=== PATIENT | female | born 1935 | race Caucasian/White ===

== ENCOUNTER 2016-08-20 16:34 | Inpatient (IN) | payer MEDICARE, BC ==
[~2016-08-20] VITALS: Ht 162.6 cm; Wt 91.1 kg
[~2016-08-20 16:34] MED LIST: ADVIL200 MG PO; ALAVERT10 MG/TAB PO; ALEVE220 MG PO; FUROSEMIDE20 MG PO; KLOR-CON M2020 MEQ PO; LEVAQUIN500 MG PO; NORVASC2.5 MG PO; Q-DRYL25 MG PO; SINGULAIR10 MG PO; SYMBICORT 16010.2 GM INH; VITAMIN D31000 UNIT PO; ZESTRIL20 MG PO; ZOLOFT50 MG PO
[2016-08-20 17:08] LABS: BASOPHILS 0.3 % (0.0-2.0); EOSINOPHILS 0.5 % (0-7); HEMOGLOBIN 12.8 g/dL (12-16); IMMATURE GRANULOCYTES 0.3 % (0-5); LYMPHOCYTES 12.4 % (15-50); MCH 31.2 pg (26.0-34.0); MCHC 32.8 g/dL (31.0-37.0); MCV 95.1 fL (80.0-100.0); MEAN PLATELET VOLUME 11.2 fL (7.4-10.4); MONOCYTES 12.4 % (2-11); NEUTROPHILS 74.1 % (40-80); RDW 12.9 % (11.5-14.5); WBC 6.5 10x3/uL (4.8-10.8)
[2016-08-20 17:10] LABS: PLATELET COUNT 124 10x3/uL (130-400)
[2016-08-20 17:36] LABS: ALBUMIN 3.8 g/dL (3.4-5.0); ANION GAP 12.3 mmol/L (8-16); BILIRUBIN - TOTAL 0.66 mg/dL (0.2-1.3); CALCIUM 8.3 mg/dL (8.5-10.1); CARBON DIOXIDE 29.4 mmol/L (21.0-32.0); CREATININE - SERUM 0.9 mg/dL (0.6-1.3); MAGNESIUM - SERUM 1.9 mg/dL (1.8-2.4); POTASSIUM - SERUM 3.7 mmol/L (3.5-5.1)
[2016-08-20 17:55] LABS: CREATINE KINASE 70 UL (21-215); PRO BNP 751 pg/mL (0-450)
--- NOTE | 2016-08-20 19:37 | NUR ---
Patient Name: DREW CHAIREZ Admission Status: ER Accout number: [id number] Admission Date: 08-20-2016 : 1935 Admission Diagnosis: CHF, HTN Attending: STEVEN Current LOS: 1 Anticipated DC Date: 08-23-2016 Planned Disposition: Assisted Living Primary Insurance: MEDICARE A & B Discharge Planning Comments: Cm met with patient to complete initial discharge planning assessment. Patient gave consent to complete assessment. Patient reports she resides at [facility]. She wears O2 at hs but stated she should probably wear it all the time. She was not able to answer all questions and could not remember some things. She was short of breath with conversation. Patient plans to return to her assisted living facility at discharge. CM will continue to follow and assist with dc plan/needs. Power Electronics Engineer: Julissa Reilly RN, [facility] [phone] Is the patient Alert and Oriented? Yes * How many steps to enter\exit or inside your home? none * PCP Dr. Kinsey * Pharmacy She is not sure * Preadmission Environment Assisted Living * Facility Name [facility] now [facility] * ADLs Partial Dependent * Partial ADLs (Assistance needed) Medication Management * Equipment Oxygen Rolling Walker Wheelchair * Other Equipment [facility] * List name and contact numbers for known caregivers / representatives who currently or will assist patient after discharge: Enzo DennisNeil - [facility] - [phone] * Community resources currently utilized None * Additional services required to return to the preadmission environment? No * Can the patient safely return to the preadmission environment? Yes * Has this patient been hospitalized within the prior 30 days at any hospital? No
[2016-08-20 19:41] VITALS: BMI 34.4
--- NOTE | 2016-08-20 19:49 | NUR ---
PT ADMITED FROM ER TO DR. AMBROSIO, PT IS FROM [facility], CAME IN WITH SOB, WEAKNESS, CHF, GIVE IV LASIX 80MG, LEVAQUIN 750MG, HYDRALAZINE, AND NITRO IN ER, 02-2L. IV-L. WRIST. PLACED FALL RISK BRACLET,BED ALARM ON, CALL LIGHT IN REACH, WILL CONTINUE TO MONITOR
[2016-08-20] MEDS ORDERED: NEURONTIN 300300 MG PO (20:09)
[2016-08-20 20:26] VITALS: BP 144/74
[2016-08-21 00:35] VITALS: BP 150/60
--- NOTE | 2016-08-21 02:15 | NUR ---
SLEEPING, CALL LIGHT IN REACH, BED IS LOW, SRX2
[2016-08-21 04:17] VITALS: BP 144/66
--- NOTE | 2016-08-21 07:00 | NUR ---
RECEIVED REPORT. ASSUMED CARE OF PATIENT. PATIENT RESTING IN BED WITH EYES OPEN. RESP EVEN AND UNLABORED. PATIENT STATES SHE IS WEAK. ALERT/ORIENTED. CALL LIGHT WITHIN REACH. BED ALARM PATENT. DENIES NEEDS AT THIS TIME. NO DISTRESS.
[2016-08-21 07:41] VITALS: BP 138/68
[2016-08-21 11:39] VITALS: BP 190/83
--- NOTE | 2016-08-21 12:28 | NUR ---
16 FR. ACKERMAN CATHETER PLACED VIA STERILE TECHNIQUE. 100 CC STRAW COLORED URINE OBTAINED UPON INSERTION TO DRAINAGE BAG VIA GRAVITY. SECURED WITH STAT LOCK. PATIENT TOLERATED ACKERMAN INSERTION WELL. ACKERMAN CATH INSERTED DUE TO CHF, RECEIVING DIURETIC THERAPY, UNABLE TO MEASURE ACCURATE AMOUNT OF URINE PRODUCED, AND WERE UNABLE TO OBTAIN CLEAN CATCH SPECIMEN FROM PATIENT SHE IS HAVING INCONTINENT EPISODES EVERY TIME SHE COUGHS, SNEEZES, OR MOVES. SPECIMEN TAKEN TO LAB AT THIS TIME. NO DISTRESS.
[2016-08-21 12:42] LABS: APPEARANCE CLEAR (CLEAR); BILIRUBIN NEGATIVE (NEGATIVE); COLOR YELLOW (YELLOW); GLUCOSE NEGATIVE (NEGATIVE); KETONE NEGATIVE (NEGATIVE); LEUKOCYTE ESTERASE NEGATIVE (NEGATIVE); NITRITE NEGATIVE (NEGATIVE); PROTEIN TRACE mg/dL (NEGATIVE); UROBILINOGEN NORMAL (NORMAL)
[2016-08-21 15:21] VITALS: BP 122/72
--- NOTE | 2016-08-21 15:30 | NUR ---
PATIENTS SON AT BEDSIDE. CALL LIGHT WITHIN REACH. PATIENT DENIES NEEDS AT THIS TIME. NO DISTRESS.
--- NOTE | 2016-08-21 17:58 | NUR ---
MEDICATED FOR NAUSEA AT THIS TIME.
[2016-08-21 20:30] VITALS: BP 178/82
[2016-08-22] VITALS: BP 133/68
[2016-08-22 04:45] VITALS: BP 131/61
[2016-08-22 05:26] LABS: BASOPHILS 0.2 % (0.0-2.0); EOSINOPHILS 0.7 % (0-7); HEMOGLOBIN 12.5 g/dL (12-16); IMMATURE GRANULOCYTES 0.2 % (0-5); LYMPHOCYTES 15.8 % (15-50); MCH 30.4 pg (26.0-34.0); MCHC 32.9 g/dL (31.0-37.0); MEAN PLATELET VOLUME 12.3 fL (7.4-10.4); MONOCYTES 16.2 % (2-11); NEUTROPHILS 66.9 % (40-80); PLATELET COUNT 128 10x3/uL (130-400); RBC 4.11 10x6/uL (4.00-5.40)
[2016-08-22 05:27] LABS: MCV 92.5 fL (80.0-100.0); WBC 4.5 10x3/uL (4.8-10.8)
[2016-08-22 06:04] LABS: ALBUMIN 3.2 g/dL (3.4-5.0); ANION GAP 11.3 mmol/L (8-16); BILIRUBIN - TOTAL 0.57 mg/dL (0.2-1.3); CALCIUM 8.6 mg/dL (8.5-10.1); CARBON DIOXIDE 32.1 mmol/L (21.0-32.0); POTASSIUM - SERUM 3.4 mmol/L (3.5-5.1); PROTEIN - SERUM 7.2 g/dL (6.4-8.2)
[2016-08-22 06:06] LABS: CREATININE - SERUM 1.2 mg/dL (0.6-1.3)
--- NOTE | 2016-08-22 07:39 | NUR ---
AM ROUNDING- PT LAYING IN BED ON BACK WITH EYES OPEN RESTING, CURRENTLY RECEIVING A BREATHING TX. ON MONITOR SHOWING SR, HR 85. PT IS ALERT AND ORIENTED. VERY SOFT SPOKEN. ACKERMAN CATHETER WITH YELLOW URINE SEEN. IV SEEN TO LEFT FOREARM WITH NS RUNNING AT KVO (15). ON 02 AT 2L VIA NC. PTS OWN WALKER AT BEDSIDE. ON LOVENOX INJECTION FOR DVT PREVENTION. NO NEED AT CURRENT TIME. WILL CONTINUE TO MONITOR AND CONTINUE WITH PLAN OF CARE.
[2016-08-22 08:00] VITALS: BP 136/70
--- NOTE | 2016-08-22 09:52 | NUR ---
WENT TO PATIENT'S ROOM AND SHE STATED THAT SHE COULD NOT GET UP INTO THE WHEELCHAIR TO COME TO RADIOLOGY FOR HER 2V CXR. SPOKE WITH HER RN MEGA AND MEGA STATED THAT SHE COULDN'T MAKE THE PATIENT COME TO THE DEPARTMENT. HUGO AYOUB STATED TO CHANGE THE ORDER TO A PORTABLE CXR.
[2016-08-22 12:00] VITALS: BP 139/61
--- NOTE | 2016-08-22 12:18 | NUR ---
SIMIN NICOLAS NOTIFIED ME OF PTS TEMP BEING 100.1 ORALLY. SLOAN NICHOLE NP ON UNIT. NOTIFIED HER OF THIS. WILL GIVE PT TYLENOL ORDERED AND CONTINUE TO MONITOR.
[2016-08-22 12:52] VITALS: Ht 162.6 cm; Wt 91.1 kg
--- NOTE | 2016-08-22 14:16 | NUR ---
Rehab Prescreening Consult recieved and the chart has been reviewed. She is a good rehab candidate. Today she is febrile 100 and orders are pending. She will be accepted to rehab when physician feels she is medically stable for discharge to rehab. Chasity Winston RN Clinical Liaison, Rehab
--- NOTE | 2016-08-22 15:18 | NUR ---
SON ON UNIT ABOUT TO LEAVE. SON ASKED ME IF THERE WAS ANYTING WE COULD GIVE PT TO HELP HER SLEEP AT NIGHT SINCE SHE HAS NOT BEEN ABLE TO SLEEP. INFORMED SON THAT I WOULD ASK SLOAN NICHOLE NP.
[2016-08-22 16:00] VITALS: BP 112/62
--- NOTE | 2016-08-22 19:11 | NUR ---
PM ROUNDING- PT LAYING IN BED ON BACK WITH EYES OPEN RESTING. ACKERMAN CATHETER WITH YELLOW URINE SEEN. ON 02 AT 2L VIA NC. IV SEEN TO LEFT FOREARM WITH NS RUNNING AT KVO (10). ON MONITOR SHOWING SR, HR 93. ON LOVENOX INJECTION FOR DVT PREVENTION. PTS OWN WALKER IS AT BEDSIDE. NO NEED AT CURRENT TIME. WILL PASS THIS ALONG IN REPORT AT 1000 TO FINISHING FRAME RUNNER NURSE AND CONTINUE TO MONITOR.
[2016-08-22 20:00] VITALS: BP 117/52
--- NOTE | 2016-08-22 23:00 | NUR ---
RADIOLOGY HERE FOR PATIENT TO GO FOR CTA VIA WHEELCHAIR.
[2016-08-23] VITALS: BP 124/55
--- NOTE | 2016-08-23 00:10 | NUR ---
REPORT RECEIVED AND CARE ASSUMED. NO VOICED NEEDS. SEE SHIFT ASSESSMENT FLOW SHEET FOR DETAILS. WILL MONITOR AND CONTINUE PLAN OF CARE.
[2016-08-23 04:00] VITALS: BP 111/75
[2016-08-23 08:11] VITALS: BP 142/69
--- NOTE | 2016-08-23 08:40 | NUR ---
RECEIVED REPORT FROM NIGHT NURSE. EATING BREAKFAST. PATIENT ORIENTED TO TIME,PLACE. WILL CONTINUE TO MONITOR.
--- NOTE | 2016-08-23 10:02 | NUR ---
Patient Name: DREW CHAIREZ Encounter No: [id number] : 1935 Primary Insurance: MEDICARE A & B Anticipated DC Date: 08-23-2016 Planned Disposition: Inpatient Rehab External Planned Provider: [facility] INPATIENT REHAB DCP follow-up note: CM RECEIVED ORDER FOR INPATIENT REHAB PRESCREENING, SPOKE TO PT AND SON, YOVANY, IN ROOM REGARDING DISCHARGE PLANNING AND NEEDS. LEONORA REPORTED THAT HE HAS SPOKEN TO THE DOCTOR ABOUT HAVING PT PARTICIPATE IN THE INPATIENT REHAB AT [place] BEFORE RETURNING TO [facility]. LEONORA FEELS THAT PT WILL BENEFIT GREATLY AND CAN PARTICIPATE IN THE THERAPY REQUIRED WITH PLAN TO RETURN TO [facility]. LEONORA PROVIDED HIS CELL PHONE NUMBER, , FOR CONTACT IF NEEDED. PT REPORTS KEK TO BE HER POWER OF PER DIEM PHYSICAL THERAPIST AND SHE IS ALSO IN AGREEMENT FOR REHAB BEFORE GOING HOME TO [facility]. IMPORTANT MESSAGE FROM MEDICARE PROVIDED AND EXPLAINED. CM WAITING INPATIENT REHAB PRESCREENING RESULT. Edu Minor, CASE MANAGEMENT
--- NOTE | 2016-08-23 10:55 | NUR ---
PT CURRENTLY SITTING UP IN CHAIR WITH EYES OPEN RESTING. ON MONITOR SHOWING SR, HR 89. IV SEEN TO LEFT FOREARM WITH NS RUNNING AT KVO. ON 02 AT 2L VIA NC. ACKERMAN CATHETER WITH YELLOW URINE SEEN. PTS OWN WALKER AT BEDSIDE. PER REPORT PT GOT UP AND WALKED WITH PHYSICAL THERAPY THIS AM. ON LOVENOX INJECTION FOR DVT PREVENTION. ALERT AND ORIENTED. PER REPORT PT WAS CONFUSED AT TIMES ON HEAD STILL OPERATOR. NO NEED AT CURRENT TIME. ROSALINDA JARAMILLO, TARP REPAIRER IS DOING DAILY SHIFT ASSESSMENT. WILL DO CARE PLAN AND TEACHING. WILL CONTINUE TO MONITOR AND CONTINUE WITH PLAN OF CARE.
[2016-08-23 11:58] VITALS: BP 117/54
--- NOTE | 2016-08-23 15:48 | NUR ---
UPON GOING TO HOOK PTS IV BACK UP TO IV FLUIDS, NOTICED THAT PTS IV WOULD NOT FLUSH. ATTEMPTED TO SAVE IV BUT IV WOULD NOT FLUSH. IV REMOVED WITH CATH TIP INTACT. TOLERATED WELL. 22G IV INSERTED INTO PTS LEFT FOREARM X1 STICK. TOLERATED WELL. HOOKED PT BACK UP TO IV FLUIDS AT O. WILL CONTINUE TO MONITOR.
[2016-08-23 15:55] VITALS: BP 125/68
[2016-08-23 16:13] LABS: BASOPHILS 0.2 % (0.0-2.0); EOSINOPHILS 0 % (0-7); HEMATOCRIT 37.1 % (36.0-48.0); HEMOGLOBIN 12.4 g/dL (12-16); IMMATURE GRANULOCYTES 0.2 % (0-5); LYMPHOCYTES 12.7 % (15-50); MCH 30.6 pg (26.0-34.0); MCHC 33.4 g/dL (31.0-37.0); MCV 91.6 fL (80.0-100.0); MONOCYTES 5.9 % (2-11); PLATELET COUNT 125 10x3/uL (130-400); RBC 4.05 10x6/uL (4.00-5.40); WBC 4.6 10x3/uL (4.8-10.8)
[2016-08-23 17:52] LABS: CALCIUM 8.7 mg/dL (8.5-10.1)
[2016-08-23 17:53] LABS: ANION GAP 18.4 mmol/L (8-16); CREATININE - SERUM 1.7 mg/dL (0.6-1.3); POTASSIUM - SERUM 4.4 mmol/L (3.5-5.1)
--- NOTE | 2016-08-23 17:55 | NUR ---
PT LAYING IN BED ON BACK WITH EYES OPEN RESTING VISITING WITH GUEST. DENIES ANY NEED AT CURRENT TIME. EMPITED FOLY CATHETER WITH 500CC OF YELLOW URINE WHILE IN ROOM. WILL CONTINUE TO MONITOR.
--- NOTE | 2016-08-23 19:30 | NUR ---
IN BED, WITH HOB UP SR UP X2, C/L IN REACH, RESP UNLAB WITH O2 @ 2L N/C IN PLACE, TELEMETRY IN PLACE SHOWING HR SR PER MONITOR. LEFT FA IV WITH NO R/S NOTED AT SITE. INTACT AND PATENT WITH NS INFUSING W/O DIFF VIA PUMP AT KVO. KASEY WELL. ACKERMAN CATH INTACT AND PATENT WITH YELLOW URINE NOTED IN BAG. CONTINUE TO MONITOR,
[2016-08-23 20:29] VITALS: BP 187/88
[2016-08-24] VITALS: BP 165/61
[2016-08-24 04:00] VITALS: BP 166/88
--- NOTE | 2016-08-24 04:01 | NUR ---
AROUSES EASILY, VOICES NO C/O PAIN OR DISCOMFORT AT THIS TIME. CONTINUE TO MONITOR, C/L IN REACH.
[2016-08-24 04:19] LABS: BASOPHILS 0.2 % (0.0-2.0); EOSINOPHILS 0 % (0-7); HEMATOCRIT 36.2 % (36.0-48.0); HEMOGLOBIN 11.9 g/dL (12-16); IMMATURE GRANULOCYTES 0.6 % (0-5); LYMPHOCYTES 11.8 % (15-50); MCH 30.4 pg (26.0-34.0); MCHC 32.9 g/dL (31.0-37.0); MCV 92.3 fL (80.0-100.0); MEAN PLATELET VOLUME 11.9 fL (7.4-10.4); MONOCYTES 6.6 % (2-11); NEUTROPHILS 80.8 % (40-80); RBC 3.92 10x6/uL (4.00-5.40)
[2016-08-24 04:22] LABS: PLATELET COUNT 161 10x3/uL (130-400); WBC 6.5 10x3/uL (4.8-10.8)
[2016-08-24 04:37] LABS: ANION GAP 11.7 mmol/L (8-16); CALCIUM 9.1 mg/dL (8.5-10.1); CARBON DIOXIDE 29.2 mmol/L (21.0-32.0); CREATININE - SERUM 1.8 mg/dL (0.6-1.3); POTASSIUM - SERUM 4.9 mmol/L (3.5-5.1)
[2016-08-24 07:47] VITALS: BP 144/55
--- NOTE | 2016-08-24 09:56 | NUR ---
0715- AM ROUNDING. PT LAYING IN BED ON BACK WITH EYES OPEN RESTING. ON MONITOR SHOWING ST, HR 102. IV SEEN TO LEFT FOREARM WITH NS RUNNING AT KVO (15CC). ON O2 AT 2L VIA NC. ACKERMAN CATHETER WITH YELLOW URINE SEEN. ON LOVENOX INJECTION FOR DVT PREVENTION. NO NEED AT CURRENT TIME. WILL CONTINUE TO MONITOR AND CONTINUE WITH PLAN OF CARE.
[2016-08-24 11:45] VITALS: BP 153/68
--- NOTE | 2016-08-24 11:49 | NUR ---
CALLED PTS SON TO INFORM HIM OF PTS PROCEDURE. INFORMED HIM THAT PT WILL HAVE A LAPAROSCOPIC CHOLECYSTECTOMY ORDERED BY DR. ZAZUETA. PTS SON STATED OK.
--- NOTE | 2016-08-24 12:00 | NUR ---
CONSENTS FOR PROCEDURE SIGNED BY PT AND PLACED IN CHART. INSTRUCTED PT TO NOT EAT OR DRINK ANYTHING PRIOR TO PROCEDURE ORDERED. PT STATES "OK I WILL NOT EAT OR DRINK ANYTHING". NPO SIGN PLACED ON PTS DOOR. WILL CONTINUE TO MONITOR.
--- NOTE | 2016-08-24 15:43 | NUR ---
PHYSICAL THERAPY CALLED ME INTO PTS ROOM TO REPORT PT C/O PAIN WHERE ACKERMAN CATHETER IS. PT STATED SHE HAD URINE RUNNING DOWN HER LEG. PULLED 10CC OF FLUID OUT OF BALLOON IN ACKERMAN CATHETER AND PLACED IN BACK INTO BALLOON. PT STATED SHE IS NO IN ANY DISCOMFORT NOW. I INSTRUCTED PT TO LET ME KNOW IF SHE HAS ANY MORE TROUBLE OR DISCOMOFRT FROM ACKERMAN AREA. SHE STATED OK.
[2016-08-24 15:47] VITALS: BP 146/62
--- NOTE | 2016-08-24 17:54 | NUR ---
PT CURRENTLY SITTING UP FINISHING DINNER TRAY. ACKERMAN CATHETER EMPTIED. PT REQUESTED TO BE ASSISTED BACK TO BED. SIMIN CRUZ AND Dulce HELPED PT BACK TO BED. NO OTHER NEED AT CURRENT TIME. WILL CONTINUE TO MONITOR.
--- NOTE | 2016-08-24 19:57 | NUR ---
INTRODUCED MYSELF TO PT PRIMARY RN FOR [facility] SHIFT. PT IS SITTING UP IN BED RESTING QUIETLY. ALERT & ORIENTED. SHIFT ASSESSMENT COMPLETED AND GAS APPLIANCE SERVICER MAKING ROUNDS FOR VITALS. PT DENIES ANY CURRENT NEEDS AT THIS TIME WILL PULL NIGHTLY SCHEDULED MEDICATIONS AND CONTINUE WITH PLAN OF CARE. CL IN REACH, BED IN LOWEST, SIDE RAILS X2.
[2016-08-25] VITALS: BP 136/41
[2016-08-25 04:00] VITALS: BP 141/56
[2016-08-25 06:22] LABS: BASOPHILS 0.1 % (0.0-2.0); EOSINOPHILS 0.4 % (0-7); HEMATOCRIT 35.6 % (36.0-48.0); HEMOGLOBIN 11.7 g/dL (12-16); IMMATURE GRANULOCYTES 0.7 % (0-5); LYMPHOCYTES 11.2 % (15-50); MCH 30.5 pg (26.0-34.0); MCHC 32.9 g/dL (31.0-37.0); MEAN PLATELET VOLUME 11.7 fL (7.4-10.4); MONOCYTES 12.7 % (2-11); NEUTROPHILS 74.9 % (40-80); PLATELET COUNT 172 10x3/uL (130-400); RBC 3.83 10x6/uL (4.00-5.40); RDW 13.4 % (11.5-14.5)
[2016-08-25 06:28] LABS: WBC 11.8 10x3/uL (4.8-10.8)
--- NOTE | 2016-08-25 06:30 | CN ---
PATIENT NAME:DREW CHAIREZ MEDICAL RECORD: [id number] : [birth year] LOCATION:D. D.2110 ADMIT DATE: 08/20/16 ACCOUNT: [id number] CONSULTING PHYSICIAN: RK ZAZUETA MD REFERRING PHYSICIAN: MARQUES AMBROSIO MD DATE OF CONSULTATION: 08/24/2016 SURGICAL CONSULTATION DATE OF CONSULTATION: 08/24/2016 REASON FOR CONSULTATION: Gallstones. HISTORY OF PRESENT ILLNESS: This is an 81-year-old female who was admitted to the hospital 4 days ago. She presented to the ER with acute onset of nausea, vomiting, diarrhea, as well as shortness of breath. The patient complained at that time that she had low-grade fever. She was admitted for CHF exacerbation. She says she has been having intermittent abdominal pain and vomiting for several months. She says she wakes in the middle of the night with vomiting, but denies any real history of abdominal pain associated with vomiting that she can remember. She denies any episodes of hematemesis. Currently, she is having no abdominal pain. She had an ultrasound performed yesterday, which shows gallstones. PAST MEDICAL HISTORY: COPD, obstructive sleep apnea, reflux, hypertension, asthma, congestive heart failure. PAST SURGICAL HISTORY: Appendectomy, hysterectomy, right partial mastectomy. ALLERGIES: No known drug allergies. SOCIAL HISTORY: She lives at home alone. She is an ex-smoker. She is a previous drinker. FAMILY HISTORY: Denies any family history of heart disease or diabetes. HOME MEDICATIONS: Include Neurontin, Klor-Con, Singulair, Symbicort, B6, cholecalciferol, sertraline, lisinopril, ibuprofen, loratadine, amlodipine and naproxen. REVIEW OF SYSTEMS: A 12-point review of systems was obtained, pertinent positive and negative as per the HPI. PHYSICAL EXAMINATION: VITAL SIGNS: Temperature 98.8, pulse 101, respirations 18, blood pressure 126/62 and saturating 93% on nasal cannula. GENERAL: Morbidly obese female in mild distress. PSYCHIATRIC: She is alert and oriented times 3. EYES: Extraocular muscles are intact. EAR, NOSE, AND THROAT: Normal dentition. CARDIOVASCULAR: Normal sinus rhythm. PULMONARY: She had decreased breath sounds bilaterally with bibasilar rales. ABDOMEN: Soft, nondistended, nontender. No palpable hernia defects. SKIN: Warm, dry with normal turgor. EXTREMITIES: He has got peripheral edema. CONSULT REPORT [id number] DREW CHAIREZ LABORATORY DATA: Today, white count 6500, hemoglobin 12, hematocrit 36, platelet count 160. Sodium 135, potassium 4.9, chloride 99, CO2 of 29, BUN 49, creatinine 1.8. LFTs from 2 days ago are within normal limits. DIAGNOSTIC DATA: Ultrasound images personally reviewed, the patient does have multiple shadowing defect. There was no pericholecystic fluid or ductal dilatation. Chest x-ray images reviewed that showed pneumonia and CHF as well as pulmonary edema. IMPRESSION: This is an 81-year-old female with congestive heart failure exacerbation, chronic obstructive pulmonary disease exacerbation, acute renal failure and symptomatic cholelithiasis. PLAN: 1. Continue IV fluids per primary care team. 2. Continue IV antibiotics. Case was discussed with Dr. Hernandez, primary care doctor. I do not believe this patient is a surgical candidate at this time. If patient develops persistent right upper quadrant pain or persistent vomiting, we will recommend interventional radiology for cholecystostomy tube. At this time, we will continue the patient on clear liquid diet as tolerated. TRANSINT:[id number] Voice Confirmation ID: [id number] DOCUMENT ID: [id number] RK ZAZUETA MD at 0630 CC: [id number] DICTATION DATE: 08/24/162240 SMOOTH AND BURR WORKER COMPOSITES: 08/25/16 0150 ADM IN [facility] [address] [place] [address]
[2016-08-25 06:46] LABS: ANION GAP 10.7 mmol/L (8-16); CALCIUM 9.2 mg/dL (8.5-10.1); CARBON DIOXIDE 30.7 mmol/L (21.0-32.0); CREATININE - SERUM 1.7 mg/dL (0.6-1.3); POTASSIUM - SERUM 4.4 mmol/L (3.5-5.1)
[2016-08-25 07:00] VITALS: BP 140/66
--- NOTE | 2016-08-25 08:00 | NUR ---
PATIENT AWACK, WITH SOME FORGETFULLNESS NOTED. ACKERMAN CATH IN PLACE. DRAING CLEAR YELLOW URINE. LEFT FORARM PHERRIAL LINE KVO.
--- NOTE | 2016-08-25 09:12 | NUR ---
UP AMBULATING HALLWAY WITH PT ASSIST. RESP UL ON . WILL CONT. PLAN OF CARE.
--- NOTE | 2016-08-25 09:56 | NUR ---
PATIENT WORKING WITH PHYSICAL THERAPY. WALKING WITH WHEELED WALKER OUT IN HALLWAY
--- NOTE | 2016-08-25 11:06 | NUR ---
Nutrition Follow Up: Pt reported that her nausea has resolved. She requested a baked potato but RD reminded her that she is on a full liquid diet. Pt agreed to try Ensure and request chocolate. Pt is eating 41% meal avg on a full liquid diet. Wt stable. No BM since admit. Labs noted - Glucose now WNL; BUN, Cr elevated. Meds noted including Solu-Medrol, Zofran, Lasix, Vit D. Pt with poor po intake at this time. Rec advancing diet when medically feasible. Will continue to send selective menus and honor food preferences within diet ordered. RD following.
[2016-08-25 12:02] VITALS: BP 156/63
--- NOTE | 2016-08-25 12:52 | NUR ---
PATIENT SITTING UP AT THE SIDE OF HER BED. VOICES NO NEEDS
[2016-08-25 15:27] VITALS: BP 147/59
--- NOTE | 2016-08-25 17:26 | NUR ---
REPORT GIVEN TO DUNG ARIAS ON REHAB. PATIENT EATTING SUPPER. WILL TRANSPORT DOWN TO REHAB AFTER PATIENT IS DONE EATTING
--- NOTE | 2016-08-25 17:50 | NUR ---
PATIENT TAKEN DOWN TO REHAB ROOM 2625Q
--- NOTE | 2016-09-06 08:17 | EC ---
PATIENT:DREW CHAIREZ DATE OF SERVICE: 08/20/16 SEX: F MEDICAL RECORD: [id number] DATE OF : 34 LOCATION:D. D.211 AGE OF PATIENT: 81 ADMISSION DATE: 08/20/16 REFERRING PHYSICIAN: INTERPRETING PHYSICIAN: OTILIO DOHERTY M.D. ECHOCARDIOGRAM REPORT ECHO CHARGES 4 ECHO COMPLETE CLINICAL DIAGNOSIS: CHF ECHOCARDIOGRAPHIC MEASUREMENTS (adult normal given) AC root (d.<3.7cm) 3.5 LV Septum d (<1.2 cm> 2.2 Valve Excursion 1.6 LV Septum (systole) 2.4 Left Atria (s.<4.0cm> 3.4 LVPW d(<1.2cm) 1.7 RV (d.<2.3cm) 4.3 LVPW (sytole) 1.9 LV diastole(<5.6CM) 4.0 MV E-F(>70mm/sec) LV systole 2.7 LVOT Diameter 1.7 MV exc.(>10mm) 1.1 Est.ejection fraction (50-75%) Pericardial Effusion N DOPPLER: LVIT A 99.0 E 68.0 LA RVSP 50 LVOT 167 AOP1/2T Asc. Ao 215 RVOT 175 RA PA 238 AV Gradient Peak 18.42 AV Mean 8.85 AV Area 1.8 MV Gradient Peak 5.45 MV Mean 2.11 MV Area COMMENTS: Soil Checker: Evie MORRISSEY Color Finisher:Yanick Valencia TAPE# PACS DATE OF SERVICE: 08/21/2016 INDICATION: Congestive heart failure. REFERRING PHYSICIAN: Arcenio Kinsey MD. DESCRIPTION: Left ventricle demonstrates left ventricular hypertrophy. No wall motion abnormalities are seen. Estimated ejection fraction is 60%. Mitral valve is structurally normal. There is no regurgitation or prolapse seen. Left atrium is normal in size. The aortic valve leaflets are thickened. There is no ECHOCARDIOGRAM REPORT [id number] DREW CHAIREZ evidence of stenosis or regurgitation. Right ventricle is mildly dilated. Tricuspid valve is normal. There is mild regurgitation seen. Right ventricular systolic pressure is elevated at 50 mmHg. There is no pericardial effusion noted. IMPRESSION: 1. Left ventricular hypertrophy with preserved ejection fraction at 60%. 2. Aortic valve sclerosis without stenosis. 3. Moderate tricuspid regurgitation with elevated pulmonary pressures. TRANSINT:[id number] Voice Confirmation ID: [id number] DOCUMENT ID: [id number] OTILIO DOHERTY M.D. at 0817 CC: [id number] DICTATION DATE: 08/23/16 075 PHARMACY GENERAL MANAGER: 08/23/16 0827 DIS IN 08/25/16 [facility] [address] [place] [id number]
--- NOTE | 2016-09-09 13:49 | CN ---
PATIENT NAME:DREW DUNN MEDICAL RECORD: [id number] : 34 LOCATION:D. D.2110 ADMIT DATE: 08/20/16 ACCOUNT: [id number] CONSULTING PHYSICIAN: ROHINI ROSENBERG MD REFERRING PHYSICIAN: MARQUES AMBROSIO MD DATE OF CONSULTATION: 08/22/2016 CONSULT REQUESTING PHYSICIAN: Dr. Abraham Hernandez. REASON FOR CONSULTATION: Pneumonia, possibly aspiration pneumonia, nausea, vomiting, shortness of breath. HISTORY OF PRESENT ILLNESS: Ms. Dunn is an 81-year-old female who has a history of COPD and asthma. The patient was admitted to the ER for acute nausea, vomiting, and diarrhea and also shortness of breath. Chest radiograph showed bilateral increased interstitial marking, which are hilar in distribution, right more than the left, also the patient has elevated BNP. The patient states she might have some low-grade fever. She had nausea, vomiting, and diarrhea, and also the patient was a bit confused at the time of admission. REVIEW OF SYSTEMS: Mainly in the history of present illness. PAST MEDICAL HISTORY: 1. Asthma. 2. Chronic obstructive pulmonary disease. 3. Hypertension. 4. Nocturnal sleep related hypoxia. 5. Gastroesophageal reflux disease. PAST SURGICAL HISTORY: 1. Appendectomy. 2. Hysterectomy. 3. She has biopsy of right axillary lymph node and breast mass. ALLERGIES: There are no known drug allergies. PRESENT MEDICATIONS: On [facility] was reviewed. PERSONAL AND SOCIAL HISTORY: The patient is living alone. She is an ex-smoker. She is a nondrinker. FAMILY HISTORY: Noncontributory. PHYSICAL EXAMINATION: GENERAL: Now, the patient is lying comfortably. She is not in acute distress. VITAL SIGNS: The blood pressure 139/61, pulse is 97, respiration is 24, temperature is 100, and SpO2 is 94% on 2 liters nasal cannula. HEENT: Conjunctivae pink, sclerae nonicteric. NECK: Supple, no JVD. CHEST: Chest excursion is minimal on both sides. There are bilateral crackles, wheeze on forceful expiration. HEART: Rhythm regular, normal sound, no murmur. ABDOMEN: Soft. Bowel sounds present. No hepatosplenomegaly. RECTAL: Deferred. EXTREMITIES: No cyanosis, no clubbing. There is 1+ pedal edema. CONSULT REPORT [id number] DREW DUNN SKIN: Warm, normal turgor. CENTRAL NERVOUS SYSTEM: The patient is awake and alert. There are no obvious cranial nerve abnormality. The gait was not tested. LABORATORY DATA: CBC: WBC 4.5, hemoglobin 12.5, hematocrit 38, and platelet count 128. Chemistry: Sodium 136, potassium 3.4, BUN is 15, and creatinine 1.2. ABG: The pH is 7.46, pCO2 is 36.9 and the pO2 is 63, and bicarbonate is 26.3. IMPRESSION: 1. Pneumonia, most likely community-acquired, possibly aspiration with associated nausea and vomiting. 2. Chronic obstructive pulmonary disease, acute exacerbation. 3. Congestive heart failure with pulmonary edema and elevated BNP. 4. Asthma. 5. Nausea, vomiting and diarrhea, most likely secondary to viral gastroenteritis. 6. Chronic hypoxic respiratory failure. 7. Obstructive sleep apnea. 8. Sleep related hypoxemia. 9. Gastroesophageal reflux disease. RECOMMENDATION: Continue Rocephin and Levaquin. Follow up labs and chest radiograph. Maximized the nebulizer medication, IV corticosteroid. Start on Brovana and budesonide nebulizer. Dr. Hernandez, once again, thanks for involving me in the care of Ms. Dunn. TRANSINT:[id number] Voice Confirmation ID: [id number] DOCUMENT ID: [id number] ROHINI ROSENBERG MD at 1349 CC: MARQUES AMBROSIO MD [id number] DICTATION DATE: 08/22/16 170 COSTUMED CHARACTER ENTERTAINER: 08/22/16 2794 DIS IN 08/25/16 [place] [id number] [place] [address]
== END 2016-08-25 17:52 | DRG 190 ==
LOC: D.ER 16:34 → D.M2 18:58
PROVIDERS: Emergency Medicine; Family Medicine; Family Medicine Adult Medicine; Physician Assistant Medical; ADMIT Emergency Medicine
DX: J44.0 Chronic obstructive pulmonary disease with (acute) lower respiratory infection (principal); J18.9 Pneumonia, unspecified organism; J96.11 Chronic respiratory failure with hypoxia; J45.909 Unspecified asthma, uncomplicated; J44.1 Chronic obstructive pulmonary disease with (acute) exacerbation; H35.30 Unspecified macular degeneration; I27.2 Other secondary pulmonary hypertension; G47.33 Obstructive sleep apnea (adult) (pediatric); I11.0 Hypertensive heart disease with heart failure; I50.9 Heart failure, unspecified; K21.9 Gastro-esophageal reflux disease without esophagitis; Z87.891 Personal history of nicotine dependence; A08.4 Viral intestinal infection, unspecified

== ENCOUNTER 2016-08-25 17:48 | Inpatient (IN) | payer MEDICARE, BC ==
[~2016-08-25] VITALS: Ht 162.6 cm; Wt 89.8 kg
[~2016-08-25 17:48] MED LIST changes: +NEURONTIN 300300 MG PO
[2016-08-25 18:07] VITALS: BP 129/68; BMI 34.1
--- NOTE | 2016-08-25 20:10 | NUR ---
PT IN BED WITH HOB UP FOR COMFORT, WATCHING TV, O2 @ 2L VIA N/C, BED IN LOWEST POSITION AND CALL LIGHT WITHIN REACH.
--- NOTE | 2016-08-25 21:55 | NUR ---
PT'S LEFT FOREARM SALINE LOC IV FLUSHES EASILY. IV SITE SHOWS NO S/S OF INFECTION. DRESSING C/D/I.
--- NOTE | 2016-08-26 02:00 | NUR ---
PT IN BED WITH HOB UP FOR COMFORT, EYES CLOSED, CHEST RISING AND FALLING, 02 @ 2L VIA N/C, BED IN LOWEST POSITION AND CALL LIGHT WITHIN REACH.
--- NOTE | 2016-08-26 02:05 | NUR ---
PT RESTING, EYES CLOSED. BED LOW. CL IN REACH.
--- NOTE | 2016-08-26 05:52 | NUR ---
ACKERMAN CARE GIVEN.
[2016-08-26 08:17] LABS: BASOPHILS 0.2 % (0.0-2.0); EOSINOPHILS 1.3 % (0-7); HEMATOCRIT 36.2 % (36.0-48.0); HEMOGLOBIN 11.7 g/dL (12-16); MCH 30.4 pg (26.0-34.0); MCHC 32.3 g/dL (31.0-37.0); MEAN PLATELET VOLUME 11.7 fL (7.4-10.4); NEUTROPHILS 66.5 % (40-80); PLATELET COUNT 176 10x3/uL (130-400); RBC 3.85 10x6/uL (4.00-5.40); RDW 13.4 % (11.5-14.5)
--- NOTE | 2016-08-26 08:30 | NUR ---
PT RESTING IN BED WITH EYES OPEN CALL LIGHT IN REACH WILL MONITER
[2016-08-26 08:46] LABS: ANION GAP 10.6 mmol/L (8-16); CALCIUM 9.2 mg/dL (8.5-10.1); CARBON DIOXIDE 29.3 mmol/L (21.0-32.0); CREATININE - SERUM 1.4 mg/dL (0.6-1.3); POTASSIUM - SERUM 4.9 mmol/L (3.5-5.1)
[2016-08-26 09:00] VITALS: BP 135/66
[2016-08-26 12:21] VITALS: Ht 162.6 cm; Wt 89.8 kg
--- NOTE | 2016-08-26 12:28 | NUR ---
PT RESTING IN BED EYES OPEN EATING LUNCH TOLERATING WELL CALL LIGHT IN REACH WILL MONITER
--- NOTE | 2016-08-26 17:57 | NUR ---
PT RESTING IN BED WITH EYES OPEN CALL LIGHT IN REACH WILL MONITER
[2016-08-26 19:00] VITALS: BP 189/89
--- NOTE | 2016-08-26 19:54 | NUR ---
PT IS RESTING IN BED WITH EYES OPEN. ALERT AND ORIENTED X 3. DENIES ACUTE DISCOMFORT AT THIS TIME. NO SOB NOTED. 02 IS ON @ 2LPM PER NC. PT DENIES URGE TO HAVE BM AT THIS TIME. SR'S ARE UP X 3 IN BED. CALL LIGHT AND BEDSIDE TABLE ARE WITHIN EASY REACH.
--- NOTE | 2016-08-26 22:06 | NUR ---
PT IS RESTING QUIETLY IN BED WITH EYES CLOSED. RESPS ARE EVEN AND UNLABORED. NO ACUTE DISTRESS NOTED.
--- NOTE | 2016-08-27 00:06 | NUR ---
PT ASSISTED TO THE BATHROOM. FEELING THE URGE FOR A BM.
--- NOTE | 2016-08-27 01:15 | NUR ---
PT ASSISTED TO TURN ON LEFT SIDE. PT DENIES FURTHER NEEDS. BED LOW. CL IN REACH.
--- NOTE | 2016-08-27 03:14 | NUR ---
RESTING IN BED WITH EYES CLOSED. NO DISTRESS NOTED.
[2016-08-27 07:00] VITALS: BP 134/62
--- NOTE | 2016-08-27 08:00 | NUR ---
SHIFT ASSMT COMPLETED.CL IN REACH.
--- NOTE | 2016-08-27 12:00 | NUR ---
EATING LUNCH.DENIES NEEDS.
--- NOTE | 2016-08-27 16:00 | NUR ---
RESTING QUIETLY.CL IN REACH.
--- NOTE | 2016-08-27 19:45 | NUR ---
PT IS RESTING IN BED WITH EYES OPEN. ALERT AND ORIENTED X 3. DENIES ACUTE DISCOMFORT AT THIS TIME. VSS. LFA SALINE LOCK NOTED. ACKERMAN CATH IS PATENT AND DRAINING TO A GRAVITY BACK. BLADDER TRNG IN PROGRESS. SR'S ARE UP X 3 IN BED. CALL LIGHT AND BEDSIDE TABLE ARE WITHIN EASY REACH.
[2016-08-27 20:00] VITALS: BP 119/61
--- NOTE | 2016-08-27 21:24 | NUR ---
PT IS RESTING QUIETLY IN BED WITH EYES CLOSED. RESPS ARE EVEN AND UNLABORED. NO ACUTE DISTRESS NOTED.
--- NOTE | 2016-08-27 23:23 | NUR ---
RESTING IN BED WITH EYES CLOSED.
--- NOTE | 2016-08-28 03:03 | NUR ---
RESTING IN BED WITH EYES CLOSED.
--- NOTE | 2016-08-28 04:29 | NUR ---
PT RESTING ON RIGHT SIDE, NC INTACT, RESPIRATIONS REGULAR AND UNLABORED, NO S/S OF ACUTE DISTRESS.
[2016-08-28 07:00] VITALS: BP 128/78
--- NOTE | 2016-08-28 08:00 | NUR ---
SHIFT ASSMT COMPLETED.DENIES NEEDS.
--- NOTE | 2016-08-28 12:00 | NUR ---
EATING LUNCH AND VISITING WITH SON.FC DC'D WITH TIP INTACT.TO COMMODE;HAD FORMED BM AND RETURNED TO BED.DENIES NEEDS.
--- NOTE | 2016-08-28 16:00 | NUR ---
INCONTINENT OF URINE,TAKEN TO BATHROOM,DEPENDS CHANGED AND VOIDED
[2016-08-28 23:35] VITALS: BP 131/50
--- NOTE | 2016-08-29 00:08 | NUR ---
PT RECEIVED IN BED WITH EYES CLOSED AND CHEST RISING LYING ON RIGHT SIDE. EASILY AROUSED TO VERBAL STIMULI. NO CONCERNS NOTED AT THIS TIME. MEDICATIONS GIVEN PER MAR WITHOUT DIFFICULTY. LATER COMPLAINED OF KNEE PAIN WITH NOTHING ORDERED AT THIS TIME. NOTE LEFT FOR PHYSICIAN. SHE ALSO STATES THAT HER PERSONAL PHYSICIAN GIVES HER SHOTS TO HER KNEES AND SHE HAS NOT BEEN ABLE TO MAKE APPOINTMENT TO GET HER SHOT DUE TO ILLNESS AND HOSPITALIZATION. IN BED WITH EYES CLOSED AND CHEST RISING. NO OTHER NEEDS MADE KNOWN AT THIS TIME. CALL LIGHT IN REACH.
--- NOTE | 2016-08-29 03:22 | NUR ---
PT IN BED WITH EYES CLOSED AND CHEST RISING. NO CONCERNS NOTED AT THIS TIME. CALL LIGHT IN REACH.
[2016-08-29 06:10] LABS: BASOPHILS 0.5 % (0.0-2.0); EOSINOPHILS 4.2 % (0-7); HEMOGLOBIN 11.9 g/dL (12-16); IMMATURE GRANULOCYTES 5.3 % (0-5); LYMPHOCYTES 13.9 % (15-50); MCH 30.1 pg (26.0-34.0); MCHC 32.2 g/dL (31.0-37.0); MCV 93.4 fL (80.0-100.0); MEAN PLATELET VOLUME 10.6 fL (7.4-10.4); MONOCYTES 8.8 % (2-11); NEUTROPHILS 67.3 % (40-80); PLATELET COUNT 240 10x3/uL (130-400); RBC 3.96 10x6/uL (4.00-5.40); RDW 12.8 % (11.5-14.5); WBC 11.1 10x3/uL (4.8-10.8)
[2016-08-29 06:36] LABS: ANION GAP 8.9 mmol/L (8-16); CALCIUM 9.1 mg/dL (8.5-10.1); CARBON DIOXIDE 32.2 mmol/L (21.0-32.0); POTASSIUM - SERUM 5.1 mmol/L (3.5-5.1)
--- NOTE | 2016-08-29 08:00 | NUR ---
PATIENT IS ALERT/ORIENT X4. SITTING UP AT BEDSIDE TO EAT BREAKFAST. CALL LIGHT WITHIN REACH. VOICES NO NEEDS AT THIS TIME
[2016-08-29 09:26] VITALS: BP 154/87
--- NOTE | 2016-08-29 10:00 | NUR ---
PATIENT IN REHAB ROOM. WORKING WITH PHYSICAL THERAPIST. DENIES ANY PAIN/DISC AT THIS TIME
--- NOTE | 2016-08-29 13:34 | NUR ---
PATIENT IN REHAB ROOM. WORKING WITH OCCUPATIONAL THERAPIST
--- NOTE | 2016-08-29 15:48 | NUR ---
PATINT HELPED INTO BATHROOM. STAND BY ASST WITH PATIENTS' OWN WHEELED WALKER.
--- NOTE | 2016-08-29 18:08 | NUR ---
PATIENT SITTING UP AT THE SIDE OF THE BED EATTING SUPPER. GOOD APPETITE. AT 75%
--- NOTE | 2016-08-29 19:25 | NUR ---
PT. IN BED WITH HOB UP FOR COMFORT AND WATCHING TV. ASSESSMENT COMPLETED. NO VOICED NEEDS AT THIS TIME AND SHE HAS HER CALL LIGHT WITHIN REACH.
[2016-08-29 19:37] VITALS: BP 173/65
--- NOTE | 2016-08-29 23:03 | NUR ---
PT. IN BED LYING ON HER RIGHT SIDE WITH HOB UP FOR COMFORT. EYES ARE CLOSED AND RESP. EVEN. CALL LIGHT WITHIN REACH.
--- NOTE | 2016-08-30 05:58 | NUR ---
PT. IN BED WITH HOB UP FOR COMFORT AND AWAKENS EASILY FOR A.M. MEDICATIONS AND PICC LINE FLUSH. ONLY ONE LINE FLUSHED AND WITHDREW BLOOD. PT. TOLERATED PROCEDURE WITHOUT ANY COMPLAINTS. PT. HAS NO VOICED NEEDS AT THIS TIME AND HER CALL LIGHT IS WITHIN REACH.
--- NOTE | 2016-08-30 08:00 | NUR ---
SHIFT ASSMT COMPLETED.STILL HAS COUGH;SPUTUM CLEAR.O2@2L/NC.BREAKFAST GIVEN.WAS CHANGED FROM INCONTINENT EPISODE.CL IN REACH.
[2016-08-30 09:07] VITALS: BP 164/72
--- NOTE | 2016-08-30 12:00 | NUR ---
LUNCH GIVEN.DENIES NEEDS.
--- NOTE | 2016-08-30 12:08 | NUR ---
Nutrition Follow Up: Pt was asleep at the time of RD visit. Interview deferred. Chart reviewed. Pt is eating 86% meal avg on a regular diet. +BM 08/28/16. Wt loss 1# since admit. Labs noted. Meds noted including Zofran, Lasix, Vit D. Pt with good po intake at this time. Rec continue current diet. RD following.
--- NOTE | 2016-08-30 16:00 | NUR ---
UP IN WC;ASSISTED TO BED WITH MOD X1.CL IN REACH.SON VISITING.
[2016-08-30 19:15] VITALS: BP 140/51
--- NOTE | 2016-08-30 20:27 | NUR ---
PT STATED SHE HAS A PAIN LEVEL OF 10/10 FROM HER KNEES AND THAT SHE ISN'T GOING TO GO TO PHYSICAL THERAPY UNTIL SHE GETS HER KNEE INJECTIONS. LEFT NOTE FOR DR. AMBROSIO.
--- NOTE | 2016-08-31 00:27 | NUR ---
PT IN BED WITH HOB UP FOR COMFORT, EYES CLOSED, CHEST RISING AND FALLING, O2 @ 2L VIA N/C, BED IN LOWEST POSITION AND CALL LIGHT WITHIN REACH.
--- NOTE | 2016-08-31 01:25 | NUR ---
RESTING IN BED, EYES CLOSED. NO EVIDENT DISTRESS.
--- NOTE | 2016-08-31 05:25 | NUR ---
PT IN BED WITH HOB UP FOR COMFORT, EYES CLOSED, CHEST RISING AND FALLING, BED IN LOWEST POSITION AND CALL LIGHT WITHIN REACH.
[2016-08-31 06:21] LABS: BASOPHILS 0.5 % (0.0-2.0); HEMATOCRIT 35.2 % (36.0-48.0); HEMOGLOBIN 11.4 g/dL (12-16); IMMATURE GRANULOCYTES 4.2 % (0-5); LYMPHOCYTES 13.3 % (15-50); MCH 30.6 pg (26.0-34.0); MCHC 32.4 g/dL (31.0-37.0); MCV 94.4 fL (80.0-100.0); MEAN PLATELET VOLUME 10.8 fL (7.4-10.4); MONOCYTES 11.1 % (2-11); NEUTROPHILS 67.9 % (40-80); PLATELET COUNT 245 10x3/uL (130-400); RBC 3.73 10x6/uL (4.00-5.40); RDW 12.9 % (11.5-14.5); WBC 9.9 10x3/uL (4.8-10.8)
[2016-08-31 06:33] LABS: ANION GAP 8.5 mmol/L (8-16); CALCIUM 8.9 mg/dL (8.5-10.1); CARBON DIOXIDE 34.1 mmol/L (21.0-32.0); POTASSIUM - SERUM 4.6 mmol/L (3.5-5.1)
[2016-08-31 06:37] LABS: CREATININE - SERUM 1.3 mg/dL (0.6-1.3)
[2016-08-31 07:58] VITALS: BP 115/55
--- NOTE | 2016-08-31 08:00 | NUR ---
SHIFT ASSMT COMPLETED.CL IN REACH.
--- NOTE | 2016-08-31 12:00 | NUR ---
LUNCH GIVEN.DENIES NEEDS.SON VISITING.
--- NOTE | 2016-08-31 12:00 | NUR ---
LUNCH GIVEN.CL IN REACH.LEFT IJ TRIALYSIS CATH DC'D/BRIDGETT VASCULAR NURSE.DRSG INTACT.
--- NOTE | 2016-08-31 12:30 | RHP ---
PATIENT: DREW CHAIREZ MEDICAL RECORD: [id number] ACCOUNT: [id number] LOCATION:[facility]1118 : 34 ADMISSION DATE: 08/25/16 REHABILITATION HISTORY AND PHYSICAL EXAMINATION POST ADMISSION PHYSICIAN EXAMINATION DATE OF ADMISSION: 08/25/2016 ADMITTING DIAGNOSES: Acute exacerbation of chronic obstructive pulmonary disease, right basilar pneumonia and pulmonary edema. HISTORY OF PRESENT ILLNESS: The patient is admitted to the inpatient rehab for acute exacerbation of COPD with a right basilar pneumonia. She is an 81-year-old female patient, who presented to the Emergency Room with progressive shortness of breath and history of CHF. She also had nausea, vomiting and diarrhea for 4 days prior to coming into the hospital. She has a history of COPD and asthma. Chest x-ray showed bilateral increased interstitial markings, which are hilar in distribution, right more than left. She also had an elevated BNP. She has some confusion noted on admit to the hospital. She lives at [facility], living in her own apartment. She was independent with her ADLs and moderately independent to independent with her mobility prior to the acute hospitalist stay. She is currently on moderate assist with her ADLs and moderate assist with her mobility. She is currently requiring oxygen at 2 L via nasal cannula with continued complaints of shortness of breath prior hospitalizations. She is only wearing oxygen at q.h.s. only. Plans to return to her apartment at [facility] and get back to her prior level of functioning. COMORBIDITIES: In this patient include perihilar vascular congestion, pneumonia, chronic obstructive pulmonary disease, congestive heart failure, aortic valve sclerosis, moderate tricuspid regurg, asthma, nausea, vomiting, diarrhea, chronic hypoxic respiratory failure, obstructive sleep apnea, sleep-related hypoxia, and gastroesophageal reflux disease. PAST MEDICAL HISTORY: Significant for CHF, hypertension, COPD, gastroesophageal reflux disease, osteoarthritis, vitamin D deficiency, cataracts, macular degeneration. PAST SURGICAL HISTORY: Includes appendectomy, hysterectomy. She has had a breast mass biopsied in the past. ALLERGIES: No known drug allergies. CURRENT MEDICATIONS: Include Zoloft 50 mg daily, Pauline 60 mg daily, lisinopril 20 mg daily, Lasix 20 mg b.i.d., vitamin D 2000 units daily, amlodipine 2.5 mg daily, MiraLax 17 grams in 8 ounces of water daily, potassium 20 mEq b.i.d., Singulair 10 mg q.h.s., Advil 200 mg q.6 hours p.r.n., Neurontin 300 mg b.i.d., and Advair 2 puffs b.i.d. HABITS: No alcohol or tobacco use. FAMILY HISTORY: Noncontributory. SOCIAL HISTORY: The patient hopes to return to [facility] and get back to her prior level of function and independent living. HISTORY AND PHYSICAL [id number] DREW CHAIREZ REVIEW OF SYSTEMS: GENERAL: Does complain of weakness. HEENT: Does complain of cold, cough, and congestion. CARDIOVASCULAR: Denies any chest pain, but does complain of shortness of breath. PHYSICAL EXAMINATION: VITAL SIGNS: Stable, afebrile. GENERAL: A somewhat obese female, in no acute distress, alert upon exam. HEENT: Normocephalic, atraumatic. Mucosa moist. NECK: Supple. No lymphadenopathy. LUNGS: Clear in upper downing. Does have decreased breath sounds in the bases. HEART: Regular rate and rhythm. ABDOMEN: Benign, although obese. EXTREMITIES: No clubbing, cyanosis or edema. NEUROLOGIC: Intact. LABORATORY DATA: Her white count is 9.0, H&H of 12 and 36, and platelet count is 176. Her sodium is 137, potassium 4.9, BUN and creatinine of 46 and 1.4 and blood sugar is 109. ASSESSMENT: This is an 81-year-old female patient admitted to rehab with a working diagnosis of acute chronic obstructive pulmonary disease complicated by congestive heart failure. The patient has potential to make improvement. We instituted the following multidisciplinary therapies including to, but not limited to physical, occupational, respiratory, speech, nutritional services, prosthetics and orthotics. Given her complex condition and risk for more complications, rehabilitation services cannot be provided at a low level of care such as a fpc facility. PLAN: 1. Admit to [facility] rehab for intensive inpatient therapy to include the following disciplines: A. Physical therapy to improve gait, all transfer skills and bed mobility to a modified independent level. B. Occupational therapy to improve activities of daily living to a modified independent level. C. Case management to assist with discharge planning and placement options. D. Nutrition to assist with nutritional needs. E. Rehabilitation nursing to assist in monitoring the patient's underlying medical conditions and to assist with any type of bowel or bladder management. 2. The patient's current medication and medical care will be continued. 3. The patient will be placed on standard fall precautions. 4. The patient's estimated length of stay is approximately 7-10 days. 5. We will go ahead and discuss this patient during care team staff meeting for next week. 6. We will go ahead and monitor breathing closely and hopefully get her back to her prior level of functioning back to [facility]. TRANSINT:[id number] Voice Confirmation ID: [id number] DOCUMENT ID: [id number] HISTORY AND PHYSICAL [id number] DREW CHAIREZ SCOTT MD at 1230 CC: [id number] DICTATION DATE: 08/26/16907 AGRICULTURE INTERNSHIP: 08/26/16 1135 ADM IN [place] [id number] [place] [id number]
--- NOTE | 2016-08-31 15:58 | NUR ---
CARE TEAM MEETING: PATIENT TENATIVE DISCHARGE DATE IS 09/06/16. SHE LIVES AT [facility]). SHE HAS O2, WALKER, W/C AND GETS HER DME FROM [facility]. WILL CONTINUE TO FOLLOW WITH PATIENT UNTIL DISCHARGED
--- NOTE | 2016-08-31 16:00 | NUR ---
RESTING QUIETLY.CL IN REACH.
--- NOTE | 2016-08-31 16:00 | NUR ---
HD IN ROOM.KASEY WELL.
[2016-08-31 20:04] VITALS: BP 147/76
--- NOTE | 2016-08-31 20:13 | NUR ---
PT RECEIVED SITTING ON SIDE OF BED GETTING INTO BED. ASSISTANCE NEEDED FOR ADJUSTING BEDDING. NO OTHER NEEDS OR CONCERN MADE KNOWN. CALL LIGHT IN REACH.
--- NOTE | 2016-08-31 23:19 | NUR ---
PT IN BED WITH EYES CLOSED AND CHEST RISING. NO SIGN/SYMPTOMS OF DISTRESS NOTED. CALL LIGHT IN REACH.
--- NOTE | 2016-09-01 05:03 | NUR ---
PT IN BED WITH EYE CLOSED AND CHEST RISING. NO SIGN/SYMPTOMS OF DISTRESS NOTED. CALL LIGHT IN REACH.
--- NOTE | 2016-09-01 08:00 | NUR ---
PATIENT SITTING UP IN A WHEELHAIR BY BED TO EAT BREAKFAST. ALERT/ORIENT X4. CALL LIGHT WITHIN REACH. VOICES NO NEEDS AT THIS TIME
[2016-09-01 08:21] VITALS: BP 125/62
--- NOTE | 2016-09-01 09:49 | NUR ---
PATIENT IN REHAB ROOM. WORKING WITH OCCUPATIONAL THERAPIST. DENIES ANY PAIN/DISC AT THIS TIME
--- NOTE | 2016-09-01 12:47 | NUR ---
PATIENT IN REHAB ROOM. WORKING WITH PHYSICAL THERAPIST. DENIES ANY PAIN/DISC AT THIS TIME
--- NOTE | 2016-09-01 15:43 | NUR ---
PATIENT RESTING IN BED AFTER THERAPY. VOICES NO NEEDS
--- NOTE | 2016-09-01 17:35 | NUR ---
Pt. has had a good day in therapy. No signs of any discomfort or distress. Will continue to monitor and assist as needed. Stable condition observed.
--- NOTE | 2016-09-01 17:36 | NUR ---
PATIENT SITTING UP IN A WHEELCHAIR TO EAT SUPPER. CALL LIGHT WITHIN REACH. VOICES NO NEEDS
[2016-09-01 19:05] VITALS: BP 138/69
--- NOTE | 2016-09-01 21:19 | NUR ---
PT RECEIVED IN BED WITH EYES OPEN WATCHING TV. MEDICATIONS GIVEN PER MAR WITH PRN ADVIL GIVEN FOR 8/10 PAIN TO BILATERAL KNEES. IN BED WITH EYES CLOSED AT THIS TIME WITH CHEST RISING. CALL LIGHT IN REACH.
--- NOTE | 2016-09-02 02:40 | NUR ---
PT IN BED WITH EYES CLOSED AND CHEST RISING. NO SIGN/SYMPTOMS OF DISTRESS NOTED. CALL LIGHT IN REACH.
[2016-09-02 06:16] LABS: BASOPHILS 0.1 % (0.0-2.0); EOSINOPHILS 0.1 % (0-7); HEMATOCRIT 31.8 % (36.0-48.0); HEMOGLOBIN 10.4 g/dL (12-16); IMMATURE GRANULOCYTES 0.7 % (0-5); LYMPHOCYTES 8.8 % (15-50); MCH 30.3 pg (26.0-34.0); MCHC 32.7 g/dL (31.0-37.0); MCV 92.7 fL (80.0-100.0); MONOCYTES 5.2 % (2-11); NEUTROPHILS 85.1 % (40-80); PLATELET COUNT 245 10x3/uL (130-400); RBC 3.43 10x6/uL (4.00-5.40); WBC 13.5 10x3/uL (4.8-10.8)
[2016-09-02 06:43] LABS: ANION GAP 10.3 mmol/L (8-16); BILIRUBIN - DIRECT 0.06 mg/dL (0.00-0.30); BILIRUBIN - INDIRECT 0.24 mg/dL (0.00-1.00); BILIRUBIN - TOTAL 0.3 mg/dL (0.2-1.3); CARBON DIOXIDE 30.4 mmol/L (21.0-32.0); CREATININE - SERUM 1.3 mg/dL (0.6-1.3); POTASSIUM - SERUM 4.7 mmol/L (3.5-5.1); PROTEIN - SERUM 6.5 g/dL (6.4-8.2)
--- NOTE | 2016-09-02 08:02 | NUR ---
SITTING ON SIDE OF BED EATING BREAKFAST. DENIES NEEDS
[2016-09-02 08:37] VITALS: BP 158/59
[2016-09-02 20:06] VITALS: BP 159/63
--- NOTE | 2016-09-02 21:09 | NUR ---
PT IS RESTING IN BED WITH EYES OPEN. ALERT AND ORIENTED X 3. VOICED NO COMPLAINTS AT THIS TIME. NO SOB NOTED. NO INCONTINENCE NOTED AT THIS TIME. PT DENIES NEED TO VOID. SR'S ARE UP X 2 IN BED. CALL LIGHT AND BEDSIDE TABLE ARE WITHIN EASY REACH.
--- NOTE | 2016-09-02 22:19 | NUR ---
PT. IN BED WITH HOB UP FOR COMFORT AND IS WATCHING TV. PT. DENIES AND NEEDS AT THIS TIME AND HAS HER CALL LIGHT WITHIN REACH.
--- NOTE | 2016-09-03 01:21 | NUR ---
RESTING QUIETLY IN BED WITH EYES CLOSED. RESPS ARE EVEN AND UNLABORED. NO ACUTE DISTRESS NOTED.
--- NOTE | 2016-09-03 03:43 | NUR ---
RESTING IN BED WITH EYES CLOSED.
--- NOTE | 2016-09-03 06:09 | NUR ---
RESTING IN BED WITH EYES CLOSED.
[2016-09-03 07:00] VITALS: BP 142/81
--- NOTE | 2016-09-03 08:46 | NUR ---
SITTING ON SIDE OF BED EATING BREAKFAST. DENIES NEEDS
--- NOTE | 2016-09-03 12:05 | NUR ---
SITTING ON SIDE OF BED EATING LUNCH.IS UP TO BATHROOM OFTEN. HAS URGE INCONT.
--- NOTE | 2016-09-03 16:51 | NUR ---
SITTING ON TOILET. INCONT OF URINE IN BRIEF. CHANGES OWN INCONT BRIEF NEEDED.
[2016-09-03 20:00] VITALS: BP 173/86
--- NOTE | 2016-09-04 03:00 | NUR ---
PT RESTING QUIETLY, NO S/S OF ACUTE DISTRESS. RESPIRATIONS REGULAR AND UNLABORED, NO S/S OF ACUTE DISTRESS.
[2016-09-04 07:00] VITALS: BP 155/56
--- NOTE | 2016-09-04 09:53 | NUR ---
LAYING IN BED WATCHING TV. DENIES NEEDS. UP WITH WALKER
[2016-09-04 19:00] VITALS: BP 147/74
--- NOTE | 2016-09-04 19:30 | NUR ---
PT IN BED, WATCHING TV, 02 @ 3L VIA N/C, BED IN LOWEST POSITION AND CALL LIGHT WITHIHN REACH.
--- NOTE | 2016-09-04 23:30 | NUR ---
PT IN BED, EYES CLOSED, CHEST RISING AND FALLING, 02 @ 3L VIA N/C, BED IN LOWEST POSITON AND CALL LIGHT WITHIN REACH.
--- NOTE | 2016-09-05 03:54 | NUR ---
PT RESTING, EYES CLOSED. BED LOW. CL IN REACH.
[2016-09-05 08:27] LABS: BASOPHILS 0.3 % (0.0-2.0); EOSINOPHILS 2.8 % (0-7); HEMATOCRIT 34.9 % (36.0-48.0); HEMOGLOBIN 11.5 g/dL (12-16); IMMATURE GRANULOCYTES 0.5 % (0-5); LYMPHOCYTES 15.6 % (15-50); MCH 30.6 pg (26.0-34.0); MCV 92.8 fL (80.0-100.0); MEAN PLATELET VOLUME 10.2 fL (7.4-10.4); MONOCYTES 5.6 % (2-11); NEUTROPHILS 75.2 % (40-80); PLATELET COUNT 238 10x3/uL (130-400); RBC 3.76 10x6/uL (4.00-5.40); RDW 13.1 % (11.5-14.5)
[2016-09-05 08:39] LABS: ANION GAP 9.8 mmol/L (8-16); CALCIUM 8.8 mg/dL (8.5-10.1); CARBON DIOXIDE 31.3 mmol/L (21.0-32.0); CREATININE - SERUM 1.1 mg/dL (0.6-1.3); POTASSIUM - SERUM 4.1 mmol/L (3.5-5.1)
[2016-09-05 10:55] VITALS: BP 126/83
--- NOTE | 2016-09-05 18:08 | NUR ---
SITTING ON SIDE OF BED EATING SUPPER.DENIES NEEDS
[2016-09-05 19:00] VITALS: BP 177/84
--- NOTE | 2016-09-05 19:30 | NUR ---
PT RESTING IN BED, VISITOR AT BEDSIDE, DENIES NEEDS. WCTM. BED LOW. CL IN REACH.
--- NOTE | 2016-09-05 21:20 | NUR ---
PT REQ AND REC'D PRN ADVIL WITH HS MEDS. PT DENIES FURTHER NEEDS. BED LOW. CL INR EACH.
--- NOTE | 2016-09-05 22:26 | NUR ---
PT RESTING, EYES CLOSED. BED LOW. CL IN REACH.
--- NOTE | 2016-09-06 01:22 | NUR ---
PT RESTING, EYES CLOSED. BED LOW. CL IN REACH.
--- NOTE | 2016-09-06 04:27 | NUR ---
PT RESTING, EYES CLOSED. BED LOW. CL INR EACH.
--- NOTE | 2016-09-06 06:20 | NUR ---
PT AM MEDS ADMINISTERED. PT DENIES NEEDS. BED LOW. CL IN REACH.
--- NOTE | 2016-09-06 08:00 | NUR ---
SHIFT ASSMT COMPLETED.PLAN TO DC HOME TODAY.CL IN REACH.
[2016-09-06 09:31] VITALS: BP 145/71
--- NOTE | 2016-09-06 10:06 | NUR ---
PATIENT DISCHARGING HOME TODAY . [facility] WILL FOLLOW AT HOME ALONG WITH [facility] WILL SEE PATIENT IN 5-7 DAYS. PATIENT HAS A WALKER, WHEELCHAIR AND O2. DR. AMBROSIO WILL SEE PATIENT JULIAN PRN BASIS. PATIENT CHOICE FORM FOR HOME HEALTH AND [facility] FORM SIGNED, EXPLAINED AND FILED IN CHART.PATIENT EDUCATED ON DEEP BREATHING EXERCISES .
--- NOTE | 2016-09-06 11:15 | NUR ---
APPOINTMENT WITH DR. PETTY, 11/02/16 @ 3:00, WILL CALL PATIENT IF A AN OPENING BECOMES AVAILABLE
[2016-09-06] MEDS ORDERED: IPRAT-ALBUT 0.5-3 ML UPD (11:40)
[2016-09-06] MEDS ORDERED: MIRALAX17 GM PO (11:40)
--- NOTE | 2016-09-06 12:00 | NUR ---
UP SITTING ON BED.DENIES NEEDS.LUNCH GIVEN.
--- NOTE | 2016-09-06 15:00 | NUR ---
REVIEWED MEDS AND HOME CARE WITH SON PRESENT.STATES UNDERSTANDING.DC'D TO HOME IN STABLE CONDITION.
== END 2016-09-06 15:30 | disposition home health service (06) | DRG 190 ==
LOC: D.REHAB 17:48
PROVIDERS: ADMIT Emergency Medicine
DX: J44.1 Chronic obstructive pulmonary disease with (acute) exacerbation (principal); J18.9 Pneumonia, unspecified organism; J81.1 Chronic pulmonary edema; J96.11 Chronic respiratory failure with hypoxia; N39.0 Urinary tract infection, site not specified; I50.9 Heart failure, unspecified; I34.0 Nonrheumatic mitral (valve) insufficiency; J45.909 Unspecified asthma, uncomplicated; K21.9 Gastro-esophageal reflux disease without esophagitis; G47.34 Idiopathic sleep related nonobstructive alveolar hypoventilation; G47.33 Obstructive sleep apnea (adult) (pediatric); I07.1 Rheumatic tricuspid insufficiency; I35.8 Other nonrheumatic aortic valve disorders

== ENCOUNTER → 2016-10-26 15:08 | Outpatient (CLI) | payer MEDICARE, BC ==
[2016-08-26 12:21] VITALS: BMI 34.0
[~2016-10-26 15:08] MED LIST changes: +IPRAT-ALBUT 0.5-3 ML UPD; +MIRALAX17 GM PO
[2016-10-26 15:54] LABS: APPEARANCE CLEAR (CLEAR); BILIRUBIN NEGATIVE (NEGATIVE); COLOR YELLOW (YELLOW); GLUCOSE NEGATIVE (NEGATIVE); KETONE NEGATIVE (NEGATIVE); LEUKOCYTE ESTERASE TRACE (NEGATIVE); NITRITE POSITIVE (NEGATIVE); PROTEIN NEGATIVE (NEGATIVE); UROBILINOGEN NORMAL (NORMAL)
[2016-10-26 15:55] LABS: RED CELLS - URINE OCC /hpf (0-5)
[2016-10-26 15:56] LABS: BACTERIA MANY /hpf (NONE SEEN); EPITHELIAL CELLS 0-5 /hpf (0-5)
== END | disposition home or self-care (01) ==
LOC: D.LABREF 15:08
PROVIDERS: Emergency Medicine
DX: J44.9 Chronic obstructive pulmonary disease, unspecified (principal); Z91.81 History of falling; I50.9 Heart failure, unspecified

== ENCOUNTER 2016-11-07 08:17 | Day surgery (SDC) | payer MEDICARE, BC ==
[~2016-11-07] VITALS: Ht 162.6 cm; Wt 90.5 kg
[2016-11-07 09:38] LABS: BASOPHILS 0.5 % (0-2); EOSINOPHILS 3.7 % (0-7); HEMATOCRIT 38.4 % (36.0-48.0); HEMOGLOBIN 12.6 g/dL (12-16); LYMPHOCYTES 22.3 % (15-50); MCH 30.5 pg (26.0-34.0); MCHC 32.8 g/dL (31.0-37.0); MEAN PLATELET VOLUME 10.8 fL (7.4-10.4); MONOCYTES 8.2 % (2-11); NEUTROPHILS 65.3 % (40-80); PLATELET COUNT 231 10x3/uL (130-400); RBC 4.13 10x6/uL (4.00-5.40); RDW 13.1 % (11.5-14.5); WBC 5.7 10x3/uL (4.8-10.8)
[2016-11-07 09:57] VITALS: BP 166/83; BMI 34.4
[2016-11-07 10:12] LABS: ANION GAP 10.9 mmol/L (8-16); CALCIUM 9.3 mg/dL (8.5-10.1); CARBON DIOXIDE 31.9 mmol/L (21.0-32.0); CREATININE - SERUM 1.1 mg/dL (0.6-1.3); POTASSIUM - SERUM 3.8 mmol/L (3.5-5.1)
[2016-11-07] MEDS ORDERED: HYDROCODON-ACE1 EAC7 PO (12:03)
--- NOTE | 2016-11-07 13:19 | NUR ---
PT REPORT REC'D FROM HUGO MARROQUIN, IN RECOVERY. ROOM READY AND AWAITING PT ARRIVAL.
[2016-11-07 13:22] VITALS: BP 122/60
--- NOTE | 2016-11-07 13:30 | NUR ---
PT REC'D TO ROOM VIA STRETCHER. AAOX4. DROWSY, BUT ABLE TO AROUSE EASILY. O2 AT 3L VIA NC. REGULAR HEART RATE AND RHYTHM. VSS. X3 LAP SITES TO ABD. SITES HAVE SOME SCANT AMOUNTS OF DRIED BLOOD. SCD'S ON. BED LOW, CALL LIGHT IN REACH, FAMILY AT BEDSIDE.
[2016-11-07 14:04] VITALS: BP 122/60; Ht 162.6 cm; Wt 90.5 kg
--- NOTE | 2016-11-07 14:12 | NUR ---
ASSESSMENT PER FLOW SHEET.PT WITHOUT DISTRESS.SATS 95 ON 3 LITERS PER NASAL CANULA.AWAKENS INT AND FALLS BACK TO SLEEP.CALL LIGHT IN REACH.LAP SIATES X3 CDI.
--- NOTE | 2016-11-07 14:23 | NUR ---
PT RESTING IN BED SNORING. CURRENT BP 87/52 WITH MAP OF 71. PULSE RATE OF 72. ABLE TO AROUSE EASILY. NO CURRENT COMPLAINTS OF PAIN. BED LOW, CALL LIGHT IN REACH, DENIES NEEDS.
[2016-11-07 19:00] VITALS: BP 152/78
--- NOTE | 2016-11-07 22:21 | NUR ---
PATIENT RESTING IN BED AND DENIES NEEDS AT THIS TIME. BED IN LOWEST POSITION AND CALL LIGHT WITHIN REACH. ADMINISTERED MEDS PER ORDERS. BED IN LOWEST AND CALL LIGHT WITHIN REACH. ENCOURAGED THE PATIENT TO CALL IF SHE HAS NEEDS.
--- NOTE | 2016-11-07 22:58 | OP ---
PATIENT NAME: DREW CHAIREZ MEDICAL RECORD: [id number] :34 LOCATION:D.MS Michelle2235 ADMISSION DATE: SURGEON: RK ZAZUETA MD DATE OF OPERATION: 11/07/2016 SURGEON: Rk Zazueta MD PREOPERATIVE DIAGNOSES: 1. Calculus of the gallbladder without cholecystitis. 2. Congestive heart failure. 3. Chronic obstructive pulmonary disease. 4. Hypertension. POSTOPERATIVE DIAGNOSES: 1. Calculus of the gallbladder without cholecystitis. 2. Congestive heart failure. 3. Chronic obstructive pulmonary disease. 4. Hypertension. PROCEDURE PERFORMED: Laparoscopic cholecystectomy. ANESTHESIA: General. COMPLICATIONS: None. SPECIMENS: Gallbladder. Case was clean contaminated. ESTIMATED BLOOD LOSS: 20 cc. OPERATIVE COURSE: After consent was obtained, the patient was taken to the operating room and placed in the supine position on the operating table. Next, general anesthesia was given via endotracheal intubation after a timeout was performed to confirm the correct patient and procedure. The abdomen was then prepped and draped in typical sterile fashion. Local anesthetic was injected just above the umbilicus. A stab incision was made with 11-blade scalpel. Using a 5-mm bladeless optical trocar, the abdomen was entered under direct laparoscopic vision. Adequate pneumoperitoneum was achieved. The abdominal cavity was inspected. No evidence of bowel injury. No evidence of bleeding. The patient was then placed in the steep reverse Trendelenburg position. All remaining trocars were placed after the administration of local anesthetic, two 5-mm trocars in the right upper quadrant and 11-mm trocar in the subxiphoid position. The fundus of the gallbladder was grasped and retracted cephalad. The infundibulum was grasped and retracted laterally. The peritoneum was incised using electrocautery. Blunt dissection was then performed until the critical view was obtained. The cystic duct lateral, cystic artery medial, liver in the posterior window. At this time, 3 clips were placed in the proximal cystic duct, 1 clip distal, 2 clips were placed in the proximal cystic artery. The duct and artery were transected with laparoscopic Metzenbaum scissors. The remaining portion of the gallbladder was then dissected off the liver bed using electrocautery. Once complete, it was grasped with the tenaculum and removed through the 11-mm trocar site and sent for permanent pathology. The operative site was then copiously irrigated and suctioned. Careful attention was paid to hemostasis, which was obtained in the liver bed OPERATIVE REPORT [id number] DREW CHAIREZ using electrocautery. The abdominal cavity was inspected. No evidence of bowel injury. No evidence of bleeding. Again, the operative field was copiously irrigated and suctioned. There were [address] in the cystic duct, [address] in the cystic artery. There was no evidence of bowel injury. No evidence of bleeding. No evidence of bile leak. At this time, all remaining instruments were removed. The abdomen was desufflated. Trocars removed ____ fascia was closed with an 0 Vicryl suture. Skin was then closed with 4-0 Monocryl, Mastisol and Steri-Strips. At the end of the case, all needle and instruments counts were correct. No complications occurred. The patient was extubated and transferred to the PACU in stable condition. TRANSINT:[id number] Voice Confirmation ID: [id number] DOCUMENT ID: [id number] RK ZAZUETA MD at 2258 CC: [id number] DICTATION DATE: 11/07/16 1200 SUBSTANCE ABUSE SPECIALIST: 11/07/168 [facility] [address] [place] [address]
[2016-11-08 04:00] VITALS: BP 153/61
--- NOTE | 2016-11-08 07:40 | NUR ---
AWAKE AT THIS TIME. PULLED UPRIGHT IN BED. INSTRUCTED PT ON USE OF INCENTIVE SPIROMETER AND PT RETURNED DEMONSTRATION. REMAINS ON 2L OF OXYGEN VIA NC. DENIES PAIN OR NAUSEA AT THIS TIME. LAP SITES TO ABDOMEN WITH DRIED BLOOD ON STERI STRIPS. TOLD PT THAT WE WOULD HAVE TO WALK THIS MORNING BEFORE SHE WOULD BE ABLE TO D/C HOME. PT VERBALIZED UNDERSTANDING. WILL CONTINUE WITH PLAN OF CARE.
[2016-11-08 08:32] VITALS: BP 147/62
--- NOTE | 2016-11-08 08:54 | NUR ---
SCHEDULED MEDICATIONS ADMINISTERED WITHOUT DIFFICULTY. ASSESSMENT PERFORMED PER FLOWSHEET. PT AMBUALTED AROUND 10 FEET WITH PHYSICAL THERAPY AND ASSISTANCE OF A WALKER AT THIS TIME. PT BECAME LIGHT HEADED. OXYGEN INCREASED TO 3L VIA NC AND OXYGENS SATURATIONS CHECKED AND CORINNE FROM 90% INITIALLY TO 94%. ASSISTED PT TO CHAIR AT THIS TIME AND CALL LIGHT IN REACH. WILL CONTINUE WITH PLAN OF CARE.
--- NOTE | 2016-11-08 09:53 | NUR ---
PRN NORCO-5 ADMINISTERED AT THIS TIME FOR PAIN 5/10 INCISIONALLY. PT BACK TO BED WITH ASSISTANCE FROM SON. ON 3L VIA NC WITH SATURATIONS 94%. CALL LIGHT IN REACH AND INCENTIVE SPIROMETER IN USE. WILL CONTINUE WITH PLAN OF CARE.
--- NOTE | 2016-11-08 10:39 | NUR ---
CM NOTE: PATIENT IS DISCHARGING HOME TODAY- SON (LEONORA) WILL DRIVE HER. PATIENT LIVES AT ON LICENSE OF [facility] AND HER SON WILL BE STAYING WITH HER FOR A FEW DAYS. PATIENT IS CURRENT WITH [facility] PT ADDED (THEY HAVE BEEN NOTIFIED). PATIENT HAS HOME OXYGEN THROUGH [facility] AND THEY WILL PROVIDE PORTABLE O2 FOR TRANSFER HOME (SPOKE WITH MAIC[facility] AT [facility]).
--- NOTE | 2016-11-08 12:20 | NUR ---
D/C PAPERWORK REVIEWED WITH SON AT THIS TIME. DENIES QUESTIONS OR CONCERNS. IV D/C WITH CATH TIP INTACT. WILL ASSIST WITH DRESSING AND WILL D/C WHEN TRANSPORATION AVAILABLE.
[2016-11-08 12:30] VITALS: BP 144/58
== END 2016-11-08 12:45 | disposition home or self-care (01) ==
LOC: D.OPS 08:17 → D.PAN 09:30 → D.OPS 10:15 → D.MS 13:14 → D.OPS 11-08 12:45
PROVIDERS: Anesthesiology
DX: K80.20 Calculus of gallbladder without cholecystitis without obstruction (principal); I11.0 Hypertensive heart disease with heart failure; I50.9 Heart failure, unspecified; J44.9 Chronic obstructive pulmonary disease, unspecified; Z79.1 Long term (current) use of non-steroidal anti-inflammatories (NSAID); Z79.899 Other long term (current) drug therapy

== ENCOUNTER 2017-05-01 14:31 | Inpatient (IN) | payer MEDICARE, BC ==
[~2017-05-01] VITALS: Ht 162.6 cm; Wt 88.4 kg
[~2017-05-01 14:31] MED LIST changes: +HYDROCODON-ACE1 EAC7 PO
[2017-05-01 16:18] LABS: BASOPHILS 0.2 % (0-2); EOSINOPHILS 1.3 % (0-7); HEMATOCRIT 38.4 % (36.0-48.0); HEMOGLOBIN 12.6 g/dL (12-16); IMMATURE GRANULOCYTES 0.2 % (0-5); LYMPHOCYTES 11.5 % (15-50); MCHC 32.8 g/dL (31.0-37.0); MCV 94.3 fL (80.0-100.0); MEAN PLATELET VOLUME 10.9 fL (7.4-10.4); MONOCYTES 8.4 % (2-11); NEUTROPHILS 78.4 % (40-80); RBC 4.07 10x6/uL (4.00-5.40); RDW 12.6 % (11.5-14.5); WBC 9.3 10x3/uL (4.8-10.8)
[2017-05-01 16:21] LABS: PLATELET COUNT 161 10x3/uL (130-400)
[2017-05-01 16:34] LABS: ALBUMIN 3.5 g/dL (3.4-5.0); ANION GAP 10.3 mmol/L (8-16); BILIRUBIN - TOTAL 0.61 mg/dL (0.2-1.3); CALCIUM 8.9 mg/dL (8.5-10.1); CARBON DIOXIDE 32.7 mmol/L (21.0-32.0); CREATININE - SERUM 0.8 mg/dL (0.6-1.3); PROTEIN - SERUM 7.3 g/dL (6.4-8.2)
[2017-05-01 17:13] LABS: APPEARANCE CLEAR (CLEAR); BILIRUBIN NEGATIVE (NEGATIVE); COLOR YELLOW (YELLOW); GLUCOSE NEGATIVE (NEGATIVE); KETONE NEGATIVE (NEGATIVE); NITRITE NEGATIVE (NEGATIVE); PROTEIN NEGATIVE (NEGATIVE); SPECIFIC GRAVITY 1.015 (1.005-1.020); UROBILINOGEN NORMAL (NORMAL)
[2017-05-01 17:14] LABS: BACTERIA FEW /hpf (NONE SEEN); EPITHELIAL CELLS OCC /hpf (0-5); RED CELLS - URINE OCC /hpf (0-5); WHITE CELLS - URINE 0-5 /hpf (0-5)
[2017-05-01 20:51] VITALS: BP 176/68; BMI 33.2
--- NOTE | 2017-05-01 21:00 | NUR ---
PT RESTING ON RIGHT SIDE, IV LEFT FOREARM PATENT. FALL PRECAUTIONS IN PLACE, MARIBEL ALARM ON. ENCOURAGED PT TO USE CALL LIGHT FOR ASSISTANCE. BED IN LOWEST POSITION. WILL CONTINUE WITH PLAN OF CARE.
[2017-05-02 03:50] VITALS: BP 150/65
[2017-05-02 06:02] LABS: CALC OSMOLALITY 273 mosm/kg (275-300); CARBON DIOXIDE 30.2 mmol/L (21.0-32.0); CHLORIDE - SERUM 100 mmol/L (98-107); CREATININE - SERUM 0.6 mg/dL (0.6-1.3); GLUCOSE 108 mg/dL (74-106); SODIUM 136 mmol/L (136-145); UREA NITROGEN 14 mg/dL (7-18); eGFR NON AFRICAN AMERICAN > 90 mL/min (90-120)
[2017-05-02 06:07] LABS: POTASSIUM - SERUM 4.8 mmol/L (3.5-5.1)
[2017-05-02 06:08] LABS: BASOPHILS 0.4 % (0-2); EOSINOPHILS 2.3 % (0-7); HEMATOCRIT 36.7 % (36.0-48.0); HEMOGLOBIN 12.2 g/dL (12-16); IMMATURE GRANULOCYTES 0.4 % (0-5); LYMPHOCYTES 16.5 % (15-50); MCH 30.9 pg (26.0-34.0); MCHC 33.2 g/dL (31.0-37.0); MCV 92.9 fL (80.0-100.0); MEAN PLATELET VOLUME 11.6 fL (7.4-10.4); MONOCYTES 11.7 % (2-11); NEUTROPHILS 68.7 % (40-80); PLATELET COUNT 167 10x3/uL (130-400); RBC 3.95 10x6/uL (4.00-5.40); RDW 12.5 % (11.5-14.5); WBC 7.1 10x3/uL (4.8-10.8)
[2017-05-02 07:57] VITALS: BP 190/77
[2017-05-02 11:34] VITALS: BP 176/71
[2017-05-02 15:01] VITALS: Ht 162.6 cm; Wt 88.4 kg
[2017-05-02 15:55] VITALS: BP 172/74
--- NOTE | 2017-05-02 19:32 | NUR ---
PT IS LYING IN BED WITH HOB AT 30, PT IS RECIEVING A BREATHING TREATMENT, NO SIGNS OF DISTRESS, BED IN LOW POSITION, CALL LIGHT IN REACH MATTHIAS CONTINUE WITH PLAN OF CARE
--- NOTE | 2017-05-02 19:45 | NUR ---
LEVAQUIN INFUSION COMPLETE. SALINE LOCKED IV. PATIENT IS AWAKE, ALERT AND ORIENTED X'S 4. RESPIRATIONS ARE EVEN AND UNLABORED ON 2L/MIN NASAL CANNULA. PATIENT DENIES NEEDS AT THIS TIME. BED IN LOWEST POSITION, CALL LIGHT IN REACH. BED RIALS UP X'S 2.
[2017-05-02 20:00] VITALS: BP 149/55
[2017-05-03 04:00] VITALS: BP 152/79
--- NOTE | 2017-05-03 04:07 | NUR ---
PT. IN BED WITH HOB UP FOR COMFORT WITH EYES CLOSED AND RESP. EVEN. O2 ON AT 2L/MIN VIA N/C WITHOUT ANY S/S DISTRESS OBSERVED. CALL LIGHT REMAINS WITHIN REACH.
--- NOTE | 2017-05-03 08:41 | NUR ---
PT NOTE-STATES BREATHING IS BETTER THIS AM. STATES USES OXYGEN AT HOME NEEDED. LUNGS CLEAR BUT DIMINISHED BILAT. FALL PRECAUTIONS ARE IN PLACE. CALL LIGHT IN REACH
[2017-05-03 08:46] LABS: BASOPHILS 0.4 % (0-2); EOSINOPHILS 2.8 % (0-7); HEMATOCRIT 39.2 % (36.0-48.0); HEMOGLOBIN 12.9 g/dL (12-16); IMMATURE GRANULOCYTES 0.3 % (0-5); LYMPHOCYTES 13.7 % (15-50); MCH 30.4 pg (26.0-34.0); MCHC 32.9 g/dL (31.0-37.0); MCV 92.2 fL (80.0-100.0); MEAN PLATELET VOLUME 10.7 fL (7.4-10.4); NEUTROPHILS 72.8 % (40-80); PLATELET COUNT 163 10x3/uL (130-400); RBC 4.25 10x6/uL (4.00-5.40); RDW 12.8 % (11.5-14.5); WBC 7.2 10x3/uL (4.8-10.8)
[2017-05-03 09:05] LABS: ALBUMIN 3.3 g/dL (3.4-5.0); ANION GAP 14.4 mmol/L (8-16); BILIRUBIN - TOTAL 0.5 mg/dL (0.2-1.3); CALCIUM 8.8 mg/dL (8.5-10.1); POTASSIUM - SERUM 4.4 mmol/L (3.5-5.1); PROTEIN - SERUM 6.9 g/dL (6.4-8.2)
[2017-05-03 09:06] LABS: CREATININE - SERUM 0.8 mg/dL (0.6-1.3)
[2017-05-03 09:32] VITALS: BP 151/70
[2017-05-03 13:03] VITALS: BP 156/65
[2017-05-03] MEDS ORDERED: TESSALON PERLE100 MG PO (15:17)
[2017-05-03] MEDS ORDERED: MUCINEX600 MG PO (15:17)
[2017-05-03] MEDS ORDERED: FLORAJEN3 CAPS460 MG PO (15:17)
[2017-05-03] MEDS ORDERED: Levaquin PO (15:18)
[2017-05-03] MEDS ORDERED: ALBUTEROL2.5 MG/3 M INH (15:18)
[2017-05-03] MEDS ORDERED: IPRAT-ALBUT 0.5-3 ML INH (15:18)
[2017-05-03 15:34] VITALS: BP 132/58
--- NOTE | 2017-05-04 07:00 | NUR ---
LATE ENTRY: PATIENT D/C TO IP REHAB YESTERDAY
== END 2017-05-03 19:29 | DRG 190 ==
LOC: D.ER 14:31 → D.MS 18:20 → OBSVTIME 18:20 → D.MS 05-02 15:38
PROVIDERS: Family Medicine; Physician Assistant Medical; ADMIT Emergency Medicine
DX: J44.0 Chronic obstructive pulmonary disease with (acute) lower respiratory infection (principal); J18.9 Pneumonia, unspecified organism; J96.11 Chronic respiratory failure with hypoxia; K21.9 Gastro-esophageal reflux disease without esophagitis; I11.0 Hypertensive heart disease with heart failure; I50.9 Heart failure, unspecified; E87.6 Hypokalemia; G47.33 Obstructive sleep apnea (adult) (pediatric); F41.8 Other specified anxiety disorders; H35.30 Unspecified macular degeneration; J20.9 Acute bronchitis, unspecified; W19.XXXA Unspecified fall, initial encounter

== ENCOUNTER 2017-05-03 18:22 | Inpatient (IN) | payer MEDICARE ==
[~2017-05-03] VITALS: Ht 162.6 cm; Wt 88.0 kg
[~2017-05-03 18:22] MED LIST changes: +ALBUTEROL2.5 MG/3 M INH; +FLORAJEN3 CAPS460 MG PO; +IPRAT-ALBUT 0.5-3 ML INH; +Levaquin PO; +MUCINEX600 MG PO; +TESSALON PERLE100 MG PO
--- NOTE | 2017-05-03 19:05 | NUR ---
RECEIVED PATIENT TO BED 1108A VIA W/C FROM ACUTE CARE UNIT. PATIENT WAS TRANSFERRED TO BED. O2 PER N/C @ 2L FLOW. DENIES CURRENT NEEDS.
[2017-05-03 19:35] VITALS: BP 146/89; BMI 17.0
--- NOTE | 2017-05-03 20:50 | NUR ---
GAVE PATIENT SCHEDULED HS MEDS AND FLUSHED HER LEFT FA S/L WHICH REMAINS PATENT. C/O PAIN LEVEL OF 8/10 IN ALL MAJOR JOINTS. REVIEWED PAIN SCALE TO VERIFY HER GRADING OF PAIN AND SHE STILL REPORTS PAIN LEVEL OF 8/10. SHE HAD ORIGINALLY REQUESTED AN IBUPROFEN 200MG, BUT ON REPORTING THE HIGH LEVEL OF PAIN SHE IS HAVING, I RETURNED THE IBUPROFEN AND GAVE HER NORCO 5/325 X1 TAB PO. TOLD HER I WILL RETURN LATER TO PERFORM HER ADMISSION ASSESSMENT. SAYS SHE UNDERSTANDS. OFFERED TO ASSIST HER UP TO BR BUT SHE DECLINED.
--- NOTE | 2017-05-03 22:20 | NUR ---
RESTING QUIETLY IN BED, EYES CLOSED.
--- NOTE | 2017-05-03 23:50 | NUR ---
ASSISTED PATIENT UP TO BR TO URINATE AND TO CHANGE BRIEF AND GOWN AFTER LARGE URINARY INCONTINENCE IN BED. ALSO HAD TO CHANGE HER PINK BED PAD. SAYS THIS ONLY OCCURS ON RARE OCCASION. PATIENT STATES HER SON IS HER DPOA AND MPOA AND HE WILL SIGN HER ADMISSION DOCUMENTS TOMORROW.
--- NOTE | 2017-05-04 02:25 | NUR ---
PATIENT AWAKE. SAYS SHE CANNOT BELIEVE HOW COMFORTABLE SHE IS TONIGHT VS PREVIOUS NIGHTS.
--- NOTE | 2017-05-04 04:00 | NUR ---
RESTING IN BED ON LEFT SIDE. RESPIRING QUIETLY.
[2017-05-04 05:45] LABS: BASOPHILS 0.3 % (0-2); EOSINOPHILS 3.1 % (0-7); HEMOGLOBIN 12.7 g/dL (12-16); IMMATURE GRANULOCYTES 0.1 % (0-5); LYMPHOCYTES 20.2 % (15-50); MCH 31.1 pg (26.0-34.0); MCHC 33.4 g/dL (31.0-37.0); MCV 92.9 fL (80.0-100.0); MEAN PLATELET VOLUME 10.7 fL (7.4-10.4); MONOCYTES 7.9 % (2-11); NEUTROPHILS 68.4 % (40-80); PLATELET COUNT 172 10x3/uL (130-400); RBC 4.09 10x6/uL (4.00-5.40); RDW 12.7 % (11.5-14.5); WBC 6.8 10x3/uL (4.8-10.8)
[2017-05-04 06:07] LABS: ANION GAP 10.2 mmol/L (8-16); CREATININE - SERUM 0.9 mg/dL (0.6-1.3); POTASSIUM - SERUM 4.2 mmol/L (3.5-5.1)
--- NOTE | 2017-05-04 06:50 | NUR ---
GAVE PATIENT SCHEDULED MEDS. ASSISTED HER UP TO BR COMMODE TO URINATE. INSTALLED MARIBEL ALARM MAT UNDER BOTTOM BEDSHEET AND ARMED ALARM ON HER RETURN TO BED.
--- NOTE | 2017-05-04 08:15 | NUR ---
PT UP IN WHEELCHAIR EATING BREAKFAST TOLERATED WELL CALL LIGHT IN REACH WILL MONITER
[2017-05-04 08:42] VITALS: BP 153/72
[2017-05-04 09:33] VITALS: Ht 162.6 cm; Wt 88.0 kg
--- NOTE | 2017-05-04 12:32 | NUR ---
PATIENT ADMITTED TO REHAB FROM ACUTE FLOOR. DR. AMBROSIO IS HER PCP AND SHE O2 AT HOME. WILL CONTIUNE TO FOLLOW WITH PATIENT AND WILL ASSIST WITH DISCHARGE PLANS BACK TO HER HOME.
--- NOTE | 2017-05-04 18:24 | NUR ---
PT RESTING ON SIDE OF BED EATING SUPPER TOLERATING WELL CALL LIGHT IN REACH
--- NOTE | 2017-05-04 19:20 | NUR ---
SHIFT HANDOFF COMPLETE. PATIENT IN BED. ASSISTED HER UP TO BR TO URINATE AND THEN BACK TO BED.
--- NOTE | 2017-05-04 20:20 | NUR ---
REMAINS IN BED, AWAKE. PATIENT COMPLETING MENU SELECTIONS.
[2017-05-04 20:25] VITALS: BP 133/76
--- NOTE | 2017-05-04 21:20 | NUR ---
ASSESSMENT AND HS MEDS COMPLETE. EARLIER COMPLAINED TO DAY SHIFT NURSE OF INDIGESTION. AN ORDER FOR TUMS WAS OBTAINED, BUT PATIENT NO REPORTS INDIGESTION HAS SUBSIDED AND SHE DOES NOT NEED THE TUMS.
--- NOTE | 2017-05-04 22:35 | NUR ---
RESTING IN BED ON LEFT SIDE, EYES CLOSED. NO DISTRESS NOTED.
--- NOTE | 2017-05-05 00:35 | NUR ---
RESTING IN BED ON LEFT SIDE. APPEARS COMFORTABLE.
--- NOTE | 2017-05-05 02:15 | NUR ---
RESTING QUIETLY IN BED, EYES CLOSED.
--- NOTE | 2017-05-05 03:50 | NUR ---
REMAINS IN BED, RESTING ON LEFT SIDE. RESPIRING QUIETLY.
[2017-05-05 05:47] LABS: BASOPHILS 0.3 % (0-2); EOSINOPHILS 3.8 % (0-7); HEMATOCRIT 38.4 % (36.0-48.0); HEMOGLOBIN 12.6 g/dL (12-16); IMMATURE GRANULOCYTES 0.3 % (0-5); LYMPHOCYTES 18.9 % (15-50); MCH 30.7 pg (26.0-34.0); MCHC 32.8 g/dL (31.0-37.0); MCV 93.4 fL (80.0-100.0); MEAN PLATELET VOLUME 10.7 fL (7.4-10.4); MONOCYTES 9.5 % (2-11); NEUTROPHILS 67.2 % (40-80); PLATELET COUNT 166 10x3/uL (130-400); RBC 4.11 10x6/uL (4.00-5.40); RDW 12.7 % (11.5-14.5)
--- NOTE | 2017-05-05 05:50 | NUR ---
ASSISTED PATIENT UP TO BR COMMODE AND BACK TO BED. GAVE HER SCHEDULED PO MEDS WELL NORCO 5/325 X1 TAB PO FOR GENERALIZED LARGE JOINT PAIN.
[2017-05-05 06:12] LABS: ANION GAP 9.8 mmol/L (8-16); CARBON DIOXIDE 31.7 mmol/L (21.0-32.0); CREATININE - SERUM 0.9 mg/dL (0.6-1.3); POTASSIUM - SERUM 4.5 mmol/L (3.5-5.1)
--- NOTE | 2017-05-05 08:15 | NUR ---
PT RESTING IN BED WITH EYES OPEN CALL LIGHT IN REACH WILL MONITER
[2017-05-05 08:39] VITALS: BP 129/67
--- NOTE | 2017-05-05 16:36 | NUR ---
PT RESTING IN ROOM, DENIES NEEDS.
--- NOTE | 2017-05-05 19:15 | NUR ---
SHIFT HANDOFF COMPLETE. PATIENT DENIES NEEDS.
--- NOTE | 2017-05-05 20:00 | NUR ---
RESTING QUIETLY IN BED. O2 PER N/C @ 2L FLOW.
[2017-05-05 20:53] VITALS: BP 130/67
--- NOTE | 2017-05-05 22:00 | NUR ---
FOUND PATIENT IN BED NASAL CANNULA OFF IN APNEA. DID NOT AWAKEN TO VOICE OR SOFT TOUCH. SHOOK HER LEFT SHOULDER AND SHE AWOKE WITH A START. REEMPLACED HER NASAL CANNULA WITH O2 @ 2L. ASSESSMENT THEN COMPLETED AND HS MEDS GIVEN. S/O GEMNERALIZED LARGE JOINT PAIN OF LEVEL 8/10. GAVE HER NORCO 5/325 X1 TAB PO. PATIENT DENIES FURTHER NEEDS.
--- NOTE | 2017-05-06 00:05 | NUR ---
RESTING IN BED, EYES CLOSED. NO DISTRESS EVIDENT.
--- NOTE | 2017-05-06 02:20 | NUR ---
REMAINS IN BED, EYES CLOSED. APPEARS COMFORTABLE.
--- NOTE | 2017-05-06 04:30 | NUR ---
IN BED, LYING ON RIGHT SIDE. RESPIRING QUIETLY.
--- NOTE | 2017-05-06 06:05 | NUR ---
ASSISTED PATIENT UP TO BR TO URINATE AND CHANGE HER PULL-UP BRIEF, AND THEN BACK TO BED. TOOK SCHEDULED PO MEDS. DENIES FURTHER NEEDS.
--- NOTE | 2017-05-06 07:20 | NUR ---
SITTING UP IN BED RESTING. ALERT AND ORIENTED X4. DENIES ANY PAIN OR NEEDS. CALL LIGHT AND PERSONAL ITEMS WITHIN REACH, BED LOW, SR X3. WILL CONTINUE TO MONITOR
--- NOTE | 2017-05-06 09:33 | NUR ---
IN THERAPY GYM WITH PHYSICAL THERAPY. ADMINISTERED MORNING MEDS WITHOUT DIFFICULTY. NO S/SX OF ACUTE DISTRESS. WILL CONTINUE TO MONITOR
[2017-05-06 10:24] VITALS: BP 143/52
--- NOTE | 2017-05-06 12:00 | NUR ---
SITTING UP IN W/C EATING LUNCH. DENIES ANY NEEDS OR PAIN. CALL LIGHT AND PERSONAL ITEMS WITHIN REACH, W/C BRAKES LOCKED AND MARIBEL ALARM ON. WILL CONTINUE TO MONITOR
--- NOTE | 2017-05-06 14:10 | NUR ---
VISITING WITH FAMILY.REATING QUIETLY.CL IN REACH.
--- NOTE | 2017-05-06 16:30 | NUR ---
SITTING UP IN BED WATCHING FOOTBALL. DENIES ANY NEEDS. CALL LIGHT WITHIN REACH, BED LOW AND ALARM ON. WILL CONTINUE TO MONITOR
--- NOTE | 2017-05-06 18:46 | NUR ---
LYING IN BED RESTING. DENIES ANY NEEDS OR PAIN. CALL LIGHT WITHIN REACH, BED LOW, SR X3. WILL CONTINUE TO MONITOR
--- NOTE | 2017-05-06 20:10 | NUR ---
REST IN BED AND WATCH TV.
--- NOTE | 2017-05-06 22:26 | NUR ---
REST IN BED, AND WATCH TV.
--- NOTE | 2017-05-06 22:35 | NUR ---
PT. IN BED WITH HOB UP FOR COMFORT AND LYING ON HER LEFT SIDE. PT. ACKNOWLEDGED NURSE WHEN I ENTERED AND HAD NO VOICED NEEDS. CALL LIGHT WITHIN REACH.
[2017-05-06 23:44] VITALS: BP 142/77
--- NOTE | 2017-05-07 04:24 | NUR ---
REST IN BED, EYE CLOSE, CALL LIGHT IN REACH.
--- NOTE | 2017-05-07 08:00 | NUR ---
PATIENT IS ALERT WITH SOME CONFUSION. MARIBEL ALARM ON WHILE PATIENT IN BED. USING CALL LIGHT FOR NEEDS. CALL LIGHT WITHIN REACH. FAMILY IN ROOM WITH PATIENT.
[2017-05-07 09:02] VITALS: BP 120/62
--- NOTE | 2017-05-07 11:35 | NUR ---
PATIENT HELPED INTO BATHROOM. MOD ASST OF ONE WITH TRANSFER FROM BED TO WHEELCHAIR. MIN ASST WITH TRANSFER FROM WHEELCHAIR TO TOILET
--- NOTE | 2017-05-07 15:14 | NUR ---
PATIENT HELPED INTO BATHROOM. STAND BY ASST OF ONE. NURSE ASST HELPING PATIENT WITH A SHOWER.
--- NOTE | 2017-05-07 18:16 | NUR ---
PATIENT SITTING UP IN CHAIR FOR SUPPER. GOOD APPETITE. ATE 100% OF SUPPER.
--- NOTE | 2017-05-07 19:01 | NUR ---
RECIEVED UP IN BED WITH EYES OPEN AND TV ON. HOB ELEVATED. PLEASANT AND COOPERATIVE. DENIES ANY PAIN OR NEEDS AT THIS TIME. CALL LIGHT AND OVERBED TABLEE IN REACH.
[2017-05-07 19:17] VITALS: BP 111/54
--- NOTE | 2017-05-08 00:17 | NUR ---
RESTING IN BED WITH EYES CLOSED.
[2017-05-08 06:06] LABS: BASOPHILS 0.3 % (0-2); EOSINOPHILS 3.3 % (0-7); HEMATOCRIT 38.7 % (36.0-48.0); HEMOGLOBIN 12.5 g/dL (12-16); IMMATURE GRANULOCYTES 0.3 % (0-5); LYMPHOCYTES 18.9 % (15-50); MCH 30.6 pg (26.0-34.0); MCHC 32.3 g/dL (31.0-37.0); MCV 94.6 fL (80.0-100.0); MEAN PLATELET VOLUME 10.7 fL (7.4-10.4); NEUTROPHILS 69.2 % (40-80); PLATELET COUNT 197 10x3/uL (130-400); RBC 4.09 10x6/uL (4.00-5.40); RDW 12.9 % (11.5-14.5); WBC 6.6 10x3/uL (4.8-10.8)
[2017-05-08 06:18] LABS: ANION GAP 10.9 mmol/L (8-16); POTASSIUM - SERUM 4.9 mmol/L (3.5-5.1)
[2017-05-08 09:14] VITALS: BP 141/66
--- NOTE | 2017-05-08 09:30 | NUR ---
PT AM MEDS ADMINISTERED. PT DENIES NEEDS. WCTM.
--- NOTE | 2017-05-08 12:07 | RHP ---
PATIENT: DREW CHAIREZ MEDICAL RECORD: [id number] ACCOUNT: [id number] LOCATION:[facility]1108 : 34 ADMISSION DATE: 05/03/17 REHABILITATION HISTORY AND PHYSICAL EXAMINATION POST ADMISSION PHYSICIAN EXAMINATION POST-ADMISSION PHYSICAL EXAMINATION AND HISTORY AND PHYSICAL DATE OF ADMISSION TO REHAB: 05/03/2017 ADMITTING DIAGNOSES: Debility secondary to community-acquired pneumonia. HISTORY OF PRESENT ILLNESS: The patient admitted to inpatient rehab with community-acquired pneumonia. She is an 82-year-old female patient. She is seen by house call. She presented with weakness and shortness of breath. She has been having increased weakness over the previous 2 weeks, sustaining a couple of fall. She has got a history of hypertension, CHF, chronic O2 use, depression, and anxiety. States that her recent fall occurred in the kitchen, a feeling came over, she had no warning, slumped over the kitchen sink and she noted her legs gave out and she slipped on the kitchen floor. States she had some pain noted to her left shoulder. She has been receiving IV antibiotics, has been on O2 of 2 liters via nasal cannula and has had increased weakness. She has been ambulating short distances with assistance of PT. She has noted loss of balance. She lives in her own apartment independently at [facility]. She is moderately independent with the use a rolling walker and independent with her ADLs. Certainly set up for max assist at this time. She will definitely benefit from inpatient rehab if she has any chance going back to [facility]. Comorbidities include weakness, hypertension, chronic CHF, pneumonia, gastroesophageal reflux disease, hypokalemia, chronic obstructive sleep apnea, macular degeneration, degenerative joint disease, respiratory failure, and persistent cardiomegaly. PAST MEDICAL HISTORY: Significant for cataracts, macular degeneration, hypertension, CHF, shortness of breath, COPD, arthritis, gastroesophageal reflux disease, chronic back pain, depression, and anxiety. PAST SURGICAL HISTORY: Includes appendectomy, hysterectomy, ACF, right axillary lymph node and breast mass. ALLERGIES: No known drug allergies. CURRENT MEDICATIONS: Include MiraLax 17 grams in 8 ounces of water daily. She is on Zoloft 50 mg daily, Pauline 60 mg daily, Zestril 20 mg daily, Levaquin 500 mg daily. She is on Floranex daily, furosemide 20 mg b.i.d., vitamin D 2000 units daily, amlodipine 2.5 mg daily, potassium chloride 20 mEq b.i.d., Singulair 10 mg at bedtime, Ventolin updrafts, Advil 200 mg every 6 hours, [place] 1 tab every 4 hours of the , Mucinex 1200 mg b.i.d., Neurontin 300 mg b.i.d., Tessalon Perles 100 mg t.i.d., and DuoNeb updrafts. HABITS: No alcohol or tobacco use. FAMILY HISTORY: Noncontributory. SOCIAL HISTORY: The patient hopes to return back to [facility] and get back to her prior level of functioning. HISTORY AND PHYSICAL [id number] DREW CHAIREZ REVIEW OF SYSTEMS: GENERAL: Does complain of weakness. HEENT: Denies cold, cough, or congestion. CARDIOVASCULAR: Denies chest pain. PHYSICAL EXAMINATION: VITAL SIGNS: Stable, afebrile. GENERAL: A well-developed female, in no acute distress on exam. HEENT: Normocephalic and atraumatic. Mucosa moist. NECK: Supple. No lymphadenopathy. LUNGS: Clear in upper downing. HEART: Has a regular rate and rhythm. ABDOMEN: Benign. EXTREMITIES: No clubbing, cyanosis, or edema. NEUROLOGIC: Seems intact. LABORATORY DATA: Her white count is 6.8, H&H of 12 and 38, and platelet count was 172. Sodium 140, potassium 4.2, BUN and creatinine of 18 and 0.9, blood sugar is noted to be 116. ASSESSMENT: This is an 82-year-old female patient admitted secondary to debility, secondary to community-acquired pneumonia. The patient has potential to make improvement. We will institute the following multidisciplinary therapies including, but not limited to, physical, occupational, respiratory, speech, nutritional services, prosthetics and orthotics. Given her complex condition and risk for more complications, rehabilitation services cannot be provided at a low level of care such as a alf facility. PLAN: 1. Admit to [facility] rehab for intensive inpatient therapy to include the following disciplines: A. Physical therapy to improve gait, all transfer skills and bed mobility to a modified independent level. B. Occupational therapy to improve activities of daily living to a modified independent level. C. Case management to assist with discharge planning and placement options. D. Nutrition to assist with nutritional needs. E. Rehabilitation nursing to assist in monitoring the patient's underlying medical conditions and to assist with any type of bowel or bladder management. 2. The patient's current medication and medical care will be continued. 3. The patient will be placed on standard fall precautions. 4. The patient's estimated length of stay is approximately 7-10 days. 5. Discuss this patient during care team staff meeting this week. We will hopefully get her back out to [facility]. TRANSINT:[id number] Voice Confirmation ID: [id number] DOCUMENT ID: [id number] NICK notes whether there has been none or any medical/functional change since admission: - No change since pre-admission screen. NICK attests patient continues to be appropriate for IRF: HISTORY AND PHYSICAL [id number] DREW CHAIREZ - Continues to be appropriate. MARQUES AMBROSIO MD at 1207 CC: [id number] DICTATION DATE: 05/04/1758 SENIOR MATERIALS SCIENTIST: 05/04/17 0937 ADM IN [facility] [address] [place] [address]
--- NOTE | 2017-05-08 12:15 | NUR ---
PT EATING LUNCH, DENIES NEEDS. WCTM.
--- NOTE | 2017-05-08 17:54 | NUR ---
PT RESTING IN ROOM, DENIES NEEDS. WCTM.
--- NOTE | 2017-05-08 19:30 | NUR ---
IN BED, AWAKE. DENIES NEEDS.
--- NOTE | 2017-05-08 19:55 | NUR ---
REMAINS IN BED. DENIES NEEDS. REMINDED HER SHE IS ON OUR SHOWER LIST TONIGHT. TRIED TO PUT IT OFF BUT I ALSO REMINDED HER IT WUOLD BE BETWEEN 0500 AND 0530 IN THE MORNING ON THIS SHIFT, SO SHE SAID SHE WOULD TAKE IT AFTER HER CURRENT TV PROGRAM (SOMETIME AFTER 2100).
--- NOTE | 2017-05-08 21:50 | NUR ---
PATIENT TOOK SHOWER AROUND 2114. SCRUBS AND LINENS WERE CHANGED. ASSESSMENT AND HS MEDS NOW COMPLETE. GAVE HER NORCO 5/25 X1 TAB PO FOR PAIN LEVEL OF 8/10 IN JOINTS AND LOWER ABDOMEN. SHE ATTRIBUTES ABDOMINAL PAIN TO UTI FOR WHICH SHE IS RECEIVING LEVAQUIN 500MG PO DAILY AND HAS ONLY TWO DOSES REMAINING TO COMPLETE HER COURSE.
[2017-05-08 22:57] VITALS: BP 117/56
--- NOTE | 2017-05-09 00:30 | NUR ---
RESTING IN BED ON LEFT SIDE. NO DISTRESS EVIDENT.
--- NOTE | 2017-05-09 02:30 | NUR ---
RESTING IN BED, EYES CLOSED. NO DISTRESS EVIDENT.
--- NOTE | 2017-05-09 04:45 | NUR ---
RESTING QUIETLY IN BED, RESPIRATIONS UNLABORED.
--- NOTE | 2017-05-09 05:40 | NUR ---
GAVE PATIENT SCHEDULED PO MEDS. DENIES CURRENT NEEDS.
--- NOTE | 2017-05-09 07:30 | NUR ---
SITTING UP IN BED RESTING. ALERT AND ORIENTED X3. DENIES ANY NEEDS OR PAIN. CALL LIGHT AND PERSONAL ITEMS WITHIN REACH, BED LOW AND ALARM ON. WILL CONTINUE TO MONITOR
[2017-05-09 08:00] VITALS: BP 137/82
--- NOTE | 2017-05-09 09:02 | NUR ---
ADMINISTERED MORNING MEDS WITHOUT DIFFICULTY. C/O LARGE JOINT AND LOWER BACK PAIN 8/10 ACHING AND DEEP. NO OTHER CONCERNS VOICED. CALL LIGHT AND PERSONAL ITEMS WITHIN REACH, BED ALARM ON, BED LOW, SR X3. WILL CONTINUE TO MONITOR
--- NOTE | 2017-05-09 09:27 | NUR ---
Nutrition Follow Up: Pt stated everything was good and had no complaints this am. Pt is eating 97% meal avg on a regular diet. +BM 05/04/17 - no BM x 5 days. Labs reviewed. Meds noted including Lasix. Rec continue current diet. RD following.
--- NOTE | 2017-05-09 12:06 | NUR ---
SITTING UP IN W/C EATING LUNCH. DENIES ANY NEEDS. CALL LIGHT AND PERSONAL ITEMS WITHIN REACH, W/C BRAKES LOCKED. WILL CONTINUE TO MONITOR
--- NOTE | 2017-05-09 14:33 | NUR ---
WALKING WITH HALLS WITH [facility]. NO S/SX OF ACUTE DISTRESS NOTED. WILL CONTINUE TO MONITOR
--- NOTE | 2017-05-09 16:47 | NUR ---
LYING IN BED EYES CLOSED RESTING. APPROPRIATE RISE AND FALL OF CHEST. NO S/SX OF RESPIRATORY DISTRESS. CALL LIGHT AND WATER WITHIN REACH, BED LOW AND ALARM ON. WILL CONTINUE TO MONITOR
--- NOTE | 2017-05-09 19:25 | NUR ---
SHIFT HANDOFF COMPLETE. ASSISTED PATIENT UP TO BR TO URINATE.
--- NOTE | 2017-05-09 20:00 | NUR ---
BACK IN BED. ASSISTED HER TO REPOSITION FOR COMFORT. DENIES NEEDS.
[2017-05-09 22:10] VITALS: BP 171/81
--- NOTE | 2017-05-09 22:10 | NUR ---
ASSESSMENT AND HS MEDS COMPLETE. C/O PAIN LEVEL OF 9/10 IN NER NECK AND A HEADACHE. GAVE HER NORCO 5/325 X1 TAB PO.
--- NOTE | 2017-05-10 02:00 | NUR ---
RESTING IN BED, ON RIGHT SIDE, EYES CLOSED.
--- NOTE | 2017-05-10 03:35 | NUR ---
RESTING IN BED, EYES CLOSED.
--- NOTE | 2017-05-10 05:35 | NUR ---
IN BED, EYES CLOSED RESPIRING QUIETLY.
--- NOTE | 2017-05-10 08:00 | NUR ---
PT UP ON SIDE OF BED EATING BREAKFAST TOLERATING WELL CALL LIGHT IN REACH WILL MONITER
[2017-05-10 08:18] VITALS: BP 147/74
--- NOTE | 2017-05-10 16:00 | NUR ---
RESTING QUIETLY.CL IN REACH.
--- NOTE | 2017-05-10 16:15 | NUR ---
CARE TEAM MEETING: SON ATTENDED MEETING AND PATIENT WILL DISCHARGE 05/13/17 BACK TO HER HOME AT [facility]. [facility] WILL FOLLOW WITH PATIENT AND SHE WILL BE FOLLOWED BY [facility]. FAMILY WILL CALL DR. NGOC GRANT OFFICE TO MAKE AN APPOINTMENT FOR PATIENT TO GET AN ELECTRIC CHAIR. WILL CONTINUE TO FOLLOW WITH PATIENT .
--- NOTE | 2017-05-10 17:49 | NUR ---
PT RESTING IN BED WITH EYES OPEN CALL LIGHT IN REACH WILL MONITER
[2017-05-10 19:15] VITALS: BP 118/48
--- NOTE | 2017-05-10 19:15 | NUR ---
ASSESSMENT PER FLOW SHEET, VS OBTAINED, PT REPORTS FLATUS, BM TODAY, PT INCONTINENT AT TIMES, PT REPORTS THAT SHE HAD A SHOWER TODAY, DENIES NEEDS OR PAIN AT THIS TIME, BED IN LOW POSITION, SIDE RAILS X 3, CALL LIGHT IN REACH, BED ALARM ON AND WORKING PROPERLY
--- NOTE | 2017-05-10 20:29 | NUR ---
PT PATENT PROSECUTION ATTORNEY LIGHT, PT UP TO BR WITH ASSISTANCE VIA WC, PT VOIDED BY SELF WITH NO DIFFICULTY, BRIEFS CHANGED, PT TO SINK TO WASH HANDS, PT BACK TO BED, SERVED FRESH H20, BED IN LOW POSITION, SIDE RAILS X 2, CALL LIGHT IN REACH, BED ALARM ON AND WORKING PROPERLY
--- NOTE | 2017-05-10 21:15 | NUR ---
PT AWAKE, ADM 2100 MEDS PO PER MD ORDERS, SEE EMAR, PT DENIES NEEDS OR PAIN AT THIS TIME
--- NOTE | 2017-05-10 22:25 | NUR ---
PT AWAKE, WATCHING TV, DENIES NEEDS OR PAIN AT THIS TIME, BED IN LOW POSITION, SIDE RAILS X 2, CALL LIGHT IN REACH, BED ALARM ON AND WORKING PROPERLY
--- NOTE | 2017-05-10 23:44 | NUR ---
PT LIVESTOCK SLAUGHTERER LIGHT, PT UP TO BR WITH ASSISTANCE VIA WC, PT VOIDED BY SELF WITH NO DIFFICULTY, BRIEFS CHANGED, PT STATES "I GUESS I'M JUST GOING TO LEAK A LITTLE", PT TO SINK, WASHES HANDS, BACK TO BED, BED IN LOW POSITION, SIDE RAILS X 3, CALL LIGHT IN REACH, BED ALARM ON AND WORKING PROPERLY
--- NOTE | 2017-05-11 00:18 | NUR ---
PT RESTING WITH EYES CLOSED, RESP QUIET, NO DISTRESS NOTED, LEFT UNDISTURBED AT THIS TIME, BED IN LOW POSITION, SIDE RAILS X 3, CALL LIGHT IN REACH, BED ALARM ON AND WORKING PROPERLY
--- NOTE | 2017-05-11 06:17 | NUR ---
PT RESTING WITH EYES CLOSED, AROUSES TO SOFT VERBAL STIMULATION, ADM 0600 MEDS PER MD ORDERS, SEE EMAR, PT UP TO BR WITH ASSISTANCE VIA WC, PT VOIDED BY SELF WITH NO DIFFICULTY, PT INCONTINENT THROUGH THE NIGHT, PT CLEANED SELF WITH WET WARM WIPES, BRIEFS CHANGED, PT BACK TO BED, REQUESTS TO SIT ON SIDE OF BED, REQUESTS COFFEE AND A PAIN PILL, INFORMED PT THAT I WILL BE BACK IN A FEW MINUTES WITH IT
--- NOTE | 2017-05-11 06:37 | NUR ---
ADM ERIN PO PER MD ORDERS, SEE EMAR, FRESH COFFEE SERVED, PT DENIES FURTHER NEEDS AT THIS TIME
--- NOTE | 2017-05-11 07:28 | NUR ---
SITTING UP ON SIDE OF BED READING NEWSPAPER. DENIES ANY NEEDS OR PAIN. ALERT AND ORIENTED X3. CONTINUES ON 2L OF O2 VIA NC. NO S/SX OF ACUTE DISTRESS. CALL LIGHT AND WATER WITHIN REACH, BED LOW, ALARM ON, SR X3. WILL CONTINUE TO MONITOR
[2017-05-11 08:21] VITALS: BP 150/68
--- NOTE | 2017-05-11 08:59 | NUR ---
ADMINISTERED MORNING MEDS WITHOUT DIFFICULTY. NO S/SX OF ACUTE DISTRESS. CLAL LIGHT AND PERSONAL ITEMS WITHIN REACH, BED LOW AND ALARM ON. WILL CONTINUE TO MONITOR
--- NOTE | 2017-05-11 11:17 | NUR ---
LYING IN BED VISITING WITH FAMILY. DENIES ANY NEEDS OR PAIN. NO S/SX OF RESPIRATORY DISTRESS. CALL LIGHT AND PERSONAL ITEMS WITHIN REACH, BED LOW AND ALARM ON. WILL CONTINUE TO MONITOR
--- NOTE | 2017-05-11 14:28 | NUR ---
SITTING UP IN BED WATCHING TV. DENIES ANY PAIN OR NEEDS. NO S/SX OF ACUTE DISTRESS. CALL LIGHT AND PERSONAL ITEMS WITHIN REACH, BED LOW AND ALARM ON. WILL CONTINUE TO MONITOR
--- NOTE | 2017-05-11 16:00 | NUR ---
SITTING UP IN BED.CL IN REACH.
--- NOTE | 2017-05-11 17:38 | NUR ---
SITTING UP IN BED VISITING WITH FAMILY. NO S/SX OF ACUTE DISTRESS. CALL LIGHT WITHIN REACH, BED LOW AND ALARM ON. WILL CONTINUE TO MONTIOR
--- NOTE | 2017-05-11 19:10 | NUR ---
RESTING IN BED NO S/S OF DISTRESS NOTED.
--- NOTE | 2017-05-11 19:45 | NUR ---
PT. IN BED WITH HOB UP FOR COMFORT AND IS WATCHING TV. NO VOICED NEEDS AND HER CALL LIGHT IS WITHIN REACH.
--- NOTE | 2017-05-11 21:10 | NUR ---
PRN PAIN MEDICATION GIVEN PER ORDERS WITH POSITIVE RESRLTS.
[2017-05-11 21:14] VITALS: BP 119/69
--- NOTE | 2017-05-11 23:06 | NUR ---
RESTING IN BED NO S/S OF PAIN OR DISCOMFORT NOTED.
--- NOTE | 2017-05-12 06:43 | NUR ---
ASSISTED TO RESTROOM ,SITTING UP IN CHAIR WATCHING TV.
[2017-05-12 07:06] LABS: BASOPHILS 0.3 % (0-2); EOSINOPHILS 3.3 % (0-7); HEMATOCRIT 36.8 % (36.0-48.0); IMMATURE GRANULOCYTES 0.2 % (0-5); LYMPHOCYTES 22.3 % (15-50); MCH 30.6 pg (26.0-34.0); MCHC 32.6 g/dL (31.0-37.0); MCV 93.9 fL (80.0-100.0); MONOCYTES 7.3 % (2-11); NEUTROPHILS 66.6 % (40-80); PLATELET COUNT 188 10x3/uL (130-400); RBC 3.92 10x6/uL (4.00-5.40)
--- NOTE | 2017-05-12 07:32 | NUR ---
RESTING QUIETLY IN BED. CALL LIGHT IN REACH. BED IN LOWEST POSITION.
[2017-05-12 07:39] LABS: ANION GAP 11.9 mmol/L (8-16); CALCIUM 8.9 mg/dL (8.5-10.1); CARBON DIOXIDE 31.7 mmol/L (21.0-32.0); CREATININE - SERUM 1.1 mg/dL (0.6-1.3); POTASSIUM - SERUM 4.6 mmol/L (3.5-5.1)
[2017-05-12 08:00] VITALS: BP 148/65
[2017-05-12] MEDS ORDERED: HYDROCODON-ACE1 EAC7 PO (08:37)
--- NOTE | 2017-05-12 08:39 | NUR ---
PATIENT IS ALERT/ORIENT X4. SITTING UP IN A WHEELCHAIR FOR BREAKFAST. CALL LIGHT WITHIN REACH. VOICES NO NEEDS AT THIS TIME.
--- NOTE | 2017-05-12 09:54 | NUR ---
PATIENT IN REHAB ROOM. WORKING WITH PHYSICAL THERAPIST. DENEIS ANY PAIN/DISC AT THIS TIME
--- NOTE | 2017-05-12 14:30 | NUR ---
PATIENT HELPED INTO BATHROOM. STANDBY ASST OF ONE WITH WHEELED WALKER.
--- NOTE | 2017-05-12 16:54 | NUR ---
PATIENT LYING IN BED WATCHING T.V. VOICES NO NEEDS AT THIS TIME.
--- NOTE | 2017-05-12 19:30 | NUR ---
IN BED, AWAKE. DELIVERED HER MENU TO COMPLETE FOR TOMORROW LUNCH ONLY SHE IS DISCHARGING. SHIFT HANDOFF WAS PERFORMED EARLIER.
[2017-05-12 20:50] VITALS: BP 151/70
--- NOTE | 2017-05-12 21:15 | NUR ---
ASESSMENT AND HS MEDS COMPLETE. GAVE PATIENT NORCO 5/325 X1 TAB PO FOR PAIN LEVEL OF 7/10 IN BILAT SHOULDERS AND NECK.
--- NOTE | 2017-05-12 21:55 | NUR ---
RESTING QUIETLY IN BED, EYES CLOSED.
--- NOTE | 2017-05-13 00:05 | NUR ---
IN BED, EYES CLOSED. RESTING QUIETLY SINCE SHE WAS UP TO BR WITH BEHAVIORAL SCIENCES DEPARTMENT CHAIR ASSIST AROUND 2250 HRS.
--- NOTE | 2017-05-13 02:40 | NUR ---
SET OFF BED ALARM ATTEMPTING OOB TO BR. ASSISTED HER TO BR TO URINATE AND CHANGE WET BRIEF, AND THEN BACK TO BED. MARIBEL ALARM RE-ARMED.
--- NOTE | 2017-05-13 04:45 | NUR ---
IN BED, EYES CLOSED. RESPIRING QUIETLY.
--- NOTE | 2017-05-13 06:25 | NUR ---
RESTING QUIETLY IN BED, EYES CLOSED.
--- NOTE | 2017-05-13 07:25 | NUR ---
SITTING UP ON SIDE OF BED READING NEWSPAPER. DENIES ANY NEEDS OR PAIN. ALERT AND ORIENTED X4. CALL LIGHT AND WATER WITHIN REACH, BED LOW AND ALARM ON. WILL CONTINUE TO MONITOR
[2017-05-13 08:03] VITALS: BP 109/58
--- NOTE | 2017-05-13 09:12 | NUR ---
ADMINISTERED MORNING MEDS WHOLE WITHOUT DIFFICULTY. DENIES ANY NEEDS OR PAIN. CALL LIGHT AND WATER WITHIN REACH, BED LOW AND ALARM ON. WILL CONTINUE TO MONITOR
--- NOTE | 2017-05-13 11:52 | NUR ---
REVIEWED DISCHARGE INSTRUCTIONS AND MEDICATIONS WITH PT AND PT'S SON. NO CONCERNS VOICED. CLAUDINE DUVAL ESCORTED PT TO FRONT ACCOMPAINED BY PT SON VIA W/C, ASSISTED PT IN PERSONAL VEHICLE DRIVEN BY SON, BUCKLED PT UP IN FRONT SEAT. PT BELONGINGS WAS GIVEN TO SON WITH COPY OF D/C PAPER. PT SIGNED CHART COPY.
--- NOTE | 2017-05-15 09:17 | NUR ---
LATE ENTRY FOR 05/13/17: PATIENT DISCHRGED HOME WITH FAMILY. [facility] WILL FOLLOW WITH PATIENT FOR THERAPY AT HOME. [facility] WILL FOLLOW WITH PATIENT. NO NEW DME NEEDED AT THIS TIME. DR. AMBROSIO WILL SEE PATIENT PRN WITH [facility] , ATTEMPTED TO CALL DR. GRANT OFFICE FOR AN APPOINTMENT FOR PATIENT BUT OFFICE WAS CLOSED. LEFT INSTRUCTIONS FOR PATIENT TO CALL OFFICE MONDAY FOR AN APPOINTMENT . ORDERS HAVE BEEN FAXED WITH CONFORMATION RECEIVED. PATIENT CHOICE FORM FOR HOME HEALTH AND [facility] FORM SIGNED, EXPLAINED AND FILED IN CHART.
--- NOTE | 2017-06-17 13:26 | DS ---
PATIENT:DREW CHAIREZ :33 MEDICAL RECORD: [id number] DISCHARGE SUMMARY ADMISSION DATE: 05/03/17 DISCHARGE DATE: 05/13/17 This is a discharge dated 05/13/2017 from inpatient rehab. PRIMARY DIAGNOSIS: Decreased functional mobility and ability to provide activities of daily living secondary to weakness and debility with community-acquired pneumonia. SECONDARY DIAGNOSES: 1. Chronic hypoxic respiratory failure. 2. Congestive heart failure. 3. Hypokalemia. 4. Hypertension. 5. Chronic back pain. 6. Arthritis. 7. Macular degeneration. 8. Cataracts. 9. Degenerative joint disease. 10. Gastroesophageal reflux disease. 11. Depression/anxiety. HOSPITAL COURSE: Full H&P is located elsewhere on the chart on this 82-year-old female who was admitted to inpatient rehab for physical therapy and occupational therapy to improve gait, transfer skills, bed mobility, and activities of daily living to a modified independent level. She was evaluated by PT and OT and their plans of care were followed. She required long-term care for observation and assessment and medication administration. She was on DuoNebs for respiratory support and Levaquin for antibiotic coverage. She was cooperative with therapies, progressing towards goals. Case management was involved for discharge planning. She remained on 2 liters supplemental oxygen, which is her home dose. Electrolytes were managed by protocol. She was considered stable for discharge on 05/13/2017. She was able to walk 541 feet with moderate independence with a rolling walker prior to discharge. DISCHARGE MEDICATIONS: As per discharge medication reconciliation. DISCHARGE DISPOSITION: The patient is discharged back to assisted living at [facility]. She will continue her current diet and level of activity and will follow up with primary care as needed. She will be seen by [facility] and she will have home [facility] for continued PT, OT, and long-term care. At least 30 minutes was spent in this discharge activity. TRANSINT:[id number] Voice Confirmation ID: [id number] DOCUMENT ID: [id number] Dictated By: KISHOR JORDAN I have interviewed/examined the above patient and agree with these documented findings. DISCHARGE SUMMARY REPORT [id number] DREW CHAIREZ SCOTT MD at 1327 at 1326 CC: [id number] DICTATION DATE: 06/17/17 0932 CURB AND GUTTER LABORER: 06/17/17 1305 DIS IN 05/13/17 [facility] [address] [place] [id number]
== END 2017-05-13 11:58 | disposition home health service (06) | DRG 947 ==
LOC: D.REHAB 18:22
PROVIDERS: ADMIT Emergency Medicine
DX: R53.81 Other malaise (principal); J18.9 Pneumonia, unspecified organism; J96.11 Chronic respiratory failure with hypoxia; I11.0 Hypertensive heart disease with heart failure; I50.9 Heart failure, unspecified; R53.1 Weakness; K21.9 Gastro-esophageal reflux disease without esophagitis; E87.6 Hypokalemia; J44.9 Chronic obstructive pulmonary disease, unspecified; G47.33 Obstructive sleep apnea (adult) (pediatric); H35.30 Unspecified macular degeneration; I51.7 Cardiomegaly

== ENCOUNTER 2017-05-24 10:00 | Inpatient (IN) | payer MEDICARE, BC ==
[~2017-05-24] VITALS: Ht 162.6 cm; Wt 87.6 kg
[2017-05-24 11:02] LABS: BASOPHILS 0.2 % (0-2); EOSINOPHILS 2.3 % (0-7); HEMATOCRIT 39.7 % (36.0-48.0); IMMATURE GRANULOCYTES 0.2 % (0-5); LYMPHOCYTES 5.9 % (15-50); MCH 30.7 pg (26.0-34.0); MCHC 32.7 g/dL (31.0-37.0); MCV 93.6 fL (80.0-100.0); MEAN PLATELET VOLUME 11.3 fL (7.4-10.4); MONOCYTES 9.1 % (2-11); NEUTROPHILS 82.3 % (40-80); PLATELET COUNT 175 10x3/uL (130-400); RBC 4.24 10x6/uL (4.00-5.40); RDW 13.2 % (11.5-14.5); WBC 8.5 10x3/uL (4.8-10.8)
[2017-05-24 11:21] LABS: ALBUMIN 3.6 g/dL (3.4-5.0); ANION GAP 10.2 mmol/L (8-16); BILIRUBIN - TOTAL 0.72 mg/dL (0.2-1.3); CARBON DIOXIDE 32.2 mmol/L (21.0-32.0); POTASSIUM - SERUM 3.4 mmol/L (3.5-5.1); PROTEIN - SERUM 7.6 g/dL (6.4-8.2)
--- NOTE | 2017-05-24 16:50 | NUR ---
PT RECEIVED TO ROOM FROM ER. RR EVEN AND UNLABORED, PLACED ON 2L NC. PT IS UNSURE ABOUT MEDS SHE IS ON. PT REPORTS USING [facility]. WILL CALL [facility] FOR MED LIST. VSS. WILL COMPELTE HX AND ASSESSMENT. WILL CTM.
[2017-05-24 17:07] VITALS: BP 116/61; BMI 33.2
--- NOTE | 2017-05-24 17:32 | NUR ---
PLACED FALL SOCKS ON PT, BED IN LOWEST POSTION, PT AWARE OF HOW TO CALL FOR ASSISTANCE. WILL PLACE SCDS ON PT WHEN AVIALALBLE. WE DO NOT HAVE ANY LEFT ON THE FLOOR.
--- NOTE | 2017-05-24 18:31 | NUR ---
SPOKE TO VIKRAM WHO IS A NURSE WITH [facility]. REQEUSTED MED LIST. SHE TOLD ME SHE WOULD FAX A MED LIST OVER AND CALL TO ENSURE WE RECEIVED IT. WILL AWAIT FAX. PT IS RESTING QUIETLY, RR EVEN AND UNLABORED. WILL GIVE SHIFT REPORT ON PT CONDITION FOR THE DAY.
[2017-05-24] MEDS ORDERED: CRANBERRY 400 M1 TA1 PO (18:52)
[2017-05-24] MEDS ORDERED: NEURONTIN 400400 MG PO (18:53)
[2017-05-24] MEDS ORDERED: K-TAB10 MEQ PO (18:54)
[2017-05-24] MEDS ORDERED: MYRBETRIQ25 MG PO (18:54)
[2017-05-24] MEDS ORDERED: DETROL LA4 MG PO (18:55)
[2017-05-24] MEDS ORDERED: PROAIR HFA8.5 GM INH (18:56)
[2017-05-24] MEDS ORDERED: BETAPACE 80 MG80 MG PO (18:57)
[2017-05-24] MEDS ORDERED: TUMS500 MG PO (18:59)
[2017-05-24 19:00] VITALS: BP 183/73
[2017-05-24] MEDS ORDERED: SYMBICORT 16010.2 GM INH (19:00)
--- NOTE | 2017-05-24 20:00 | NUR ---
PT IN BED WITH HOB UP FOR COMFORT. WATCHING TV. TELEMETRY. ELECTROLYTE PROTOCOL. UP WITH ASSIST. NEEDS SCD'S BUT THERE IS NONE AVAILABLE. 02 @ 2L VIA NC. LEFT WRIST SL. BED IN LOWEST POSITION AND CALL LIGHT WITHIN REACH.
[2017-05-25] VITALS: BP 165/63
--- NOTE | 2017-05-25 03:43 | NUR ---
FOUND PT HALF WAY OFF THE BED. PLACED PT BACK IN BED. PT HAD EMESIS YELLOW IN COLOR. CHANGED PT AND PT'S BEDDING. PT HAD ALSO PULLED OUT LEFT WRIST SL. WILL ATTEMPT TO RESITE. WHEN ASKED PT, "WHAT HAPPENED?" PT STATED "I DONT KNOW." MARIBEL PAD PLACED ON PT'S BED.
[2017-05-25 04:00] VITALS: BP 199/85
--- NOTE | 2017-05-25 04:13 | NUR ---
TOMÁS ARIAS ATTEMPTED TO RESITE IV X4. WILL LEAVE MESSAGE FOR VASCULAR NURSE.
--- NOTE | 2017-05-25 05:02 | NUR ---
BARKING MACHINE FEEDER AT BEDSIDE TO OBTAIN VITALS, CALL LIGHT IN REACH. WILL CONTINUE WITH PLAN OF CARE.
[2017-05-25 06:48] LABS: BASOPHILS 0.2 % (0-2); HEMATOCRIT 37.2 % (36.0-48.0); HEMOGLOBIN 12.6 g/dL (12-16); IMMATURE GRANULOCYTES 0.2 % (0-5); LYMPHOCYTES 8.5 % (15-50); MCHC 33.9 g/dL (31.0-37.0); MEAN PLATELET VOLUME 10.7 fL (7.4-10.4); MONOCYTES 7.7 % (2-11); NEUTROPHILS 82.4 % (40-80); RBC 4.06 10x6/uL (4.00-5.40); RDW 13.1 % (11.5-14.5)
[2017-05-25 06:58] LABS: MCV 91.6 fL (80.0-100.0); PLATELET COUNT 118 10x3/uL (130-400)
[2017-05-25 07:04] LABS: ALBUMIN 3.5 g/dL (3.4-5.0); ANION GAP 15.3 mmol/L (8-16); BILIRUBIN - TOTAL 0.83 mg/dL (0.2-1.3); CALCIUM 8.3 mg/dL (8.5-10.1); CARBON DIOXIDE 28.6 mmol/L (21.0-32.0); CREATININE - SERUM 0.8 mg/dL (0.6-1.3); MAGNESIUM - SERUM 1.9 mg/dL (1.8-2.4); PHOSPHOROUS 2.7 mg/dL (2.5-4.9); POTASSIUM - SERUM 3.9 mmol/L (3.5-5.1)
--- NOTE | 2017-05-25 07:34 | NUR ---
AM ROUNDING- RECEIVED REPORT FROM INFRASTRUCTURE DEVELOPER NURSE MARIA ISABEL. PT IS CURRENTLY LAYING IN BED WITH EYES CLOSED RESTING. MARIBEL BED ALARM IS ON. ON 02 AT 2L VIA NC. ON MONITOR SHOWING SR, HR 98. NO IV CURRENTLY PER MARIA ISABEL, PTS IV CAME OUT AND HUGO LOPES STUCK PT 4X WITH NO SUCCESS. WILL CALL BRIDGETT AND SEE ABOUT GETTING IV. NO NEED AT THIS CURRENT TIME. WILL CONTINUE TO MONITOR AND CONTINUE WITH PLAN OF CARE.
[2017-05-25 09:15] VITALS: BP 173/82
--- NOTE | 2017-05-25 10:13 | NUR ---
THIS NURSE ATTEMPTED TO SITE PT WITH IV CATHETER (22G) X2 STICKS THAT WERE NOT SUCCESSFUL. BRIDGETT SCHUMACHER, VASCULAR ACCESS NURSE SITED PT WITH 22G TO PTS RIGHT HAND.
[2017-05-25 11:53] VITALS: BP 138/77
--- NOTE | 2017-05-25 12:32 | NUR ---
PT GIVEN TYLENOL FOR LOW-GRADE TEMP (99.7). PT IS SITTING UP IN BED WITH EYES OPEN RESTING. PT APPEARS VERY LETHARGIC. MARIBEL BED ALARM IS ON. WILL CONTINUE TO MONITOR.
[2017-05-25 12:41] VITALS: BMI 33.1
--- NOTE | 2017-05-25 13:45 | NUR ---
SCDS PLACED ON PT ORDERED.
--- NOTE | 2017-05-25 14:34 | NUR ---
PT IS CURRENTLY LAYING IN BED WITH EYES OPEN RESTING. PT STATES HER LEGS "FEEL FUNNY". THIS NURSE EXPLAINS TO PT THAT SHE HAS SCDS ON HER LEGS TO HELP WITH BLOOD FLOW TO PREVENT DVTS. GUEST IS AT BEDSIDE. NO NEED AT THIS TIME. WILL CONTINUE TO MONITOR.
--- NOTE | 2017-05-25 18:25 | NUR ---
PT IS CURRENTLY SITTING UP IN BED WITH EYES OPEN RESTING. STEPHIE PADRON AND I JUST CLEANED PT UP AND CHANGED PADS (PT INCONTINENT OF URINE). MARIBEL BED ALARM IS ON (PT IS CONFUSED/LETHARGIC). NO FURTHER NEED AT THIS TIME. WILL CONTINUE TO MONITOR.
[2017-05-25 22:42] VITALS: BP 197/124
--- NOTE | 2017-05-25 23:04 | NUR ---
PATIENT IS ALERT AND RESPONDS TO NAME, INCONT URINE, CONFUSED, MARIBEL BED ALARM FOR SAFETY, O2 AT 2L/MINUTE VIA NC, RIGHT HAND IV NS AT KVO, SIDE RAILS UP X 2, BED IN LOWEST POSITION AND LOCKED, NO NEEDS VOICED, WILL CONTINUE TO MONITOR, CONTINUE PLAN OF CARE.
[2017-05-26 05:19] VITALS: BP 180/80
[2017-05-26 05:44] LABS: BASOPHILS 0.3 % (0-2); EOSINOPHILS 0.6 % (0-7); HEMATOCRIT 38.1 % (36.0-48.0); HEMOGLOBIN 12.7 g/dL (12-16); LYMPHOCYTES 21.7 % (15-50); MCH 30.8 pg (26.0-34.0); MCHC 33.3 g/dL (31.0-37.0); MCV 92.3 fL (80.0-100.0); MEAN PLATELET VOLUME 10.8 fL (7.4-10.4); MONOCYTES 16.8 % (2-11); NEUTROPHILS 60.6 % (40-80); PLATELET COUNT 110 10x3/uL (130-400); RBC 4.13 10x6/uL (4.00-5.40)
[2017-05-26 05:49] LABS: WBC 3.2 10x3/uL (4.8-10.8)
--- NOTE | 2017-05-26 06:16 | NUR ---
ATTEMPTED IN AND OUT CATH FOR URINE SAMPLE, UNABLE TO OBTAIN SAMPLE.
[2017-05-26 06:24] LABS: ANION GAP 12.8 mmol/L (8-16); BILIRUBIN - TOTAL 0.6 mg/dL (0.2-1.3); CALCIUM 8.7 mg/dL (8.5-10.1); CARBON DIOXIDE 31.6 mmol/L (21.0-32.0); CREATININE - SERUM 0.9 mg/dL (0.6-1.3); POTASSIUM - SERUM 3.4 mmol/L (3.5-5.1); PROTEIN - SERUM 6.9 g/dL (6.4-8.2)
--- NOTE | 2017-05-26 06:46 | NUR ---
PRN k+ 40 mEq GIVEN FOR ELECTRLYTE PROTOCOL AT 0650, LABS ORDERED.
--- NOTE | 2017-05-26 07:40 | NUR ---
AM ROUNDING- RECEIVED REPORT FROM COUNSELOR SUPERVISOR NURSE SITA. PT IS CURRENTLY LAYING IN BED WITH EYES CLOSED RESTING. ON 02 AT 2L VIA NC. ON MONITOR SHOWING SR, HR 71. IV SEEN TO RIGHT HAND THAT WITH NS RUNNING AT 5CC. MARIBEL BED ALARM IS ON. BED IS IN LOW POSITION, SIDE RAILS ARE UP X2, AND CALL LIGHT IS IN REACH (PT IS CONFUSED). WILL CONTINUE TO MONITOR AND CONTINUE WITH PLAN OF CARE.
[2017-05-26 10:27] VITALS: BP 162/78
--- NOTE | 2017-05-26 10:34 | NUR ---
UPON DOING AM MEDICATIONS AND DAILY SHIFT ASSESSMENT PT APPEARS INCONTINENT OF STOOL (DIARRHEA). THIS NURSE AND HUGO CALDWELL ASSISTED WITH CLEANING PT UP AND CHANGING PTS LINEN. PTS IV CAME OUT DURING THIS TIME WITH CATH TIP INTACT. COVERED SITE WITH 4X4 GUAZE PADS AND SECURED WITH TAPE. WILL CONTINUE TO MONITOR AND CONTINUE WITH PLAN OF CARE.
--- NOTE | 2017-05-26 10:57 | NUR ---
HUGO CALDWELL CALLED BRIDGETT SCHUMACHER, VASCULAR ACCESS NURSE REGARDING RESITING PT WITH IV. BRIDGETT STATES SHE WILL BE TO FLOOR SOON.
[2017-05-26 11:56] VITALS: BP 155/77
[2017-05-26 15:53] VITALS: BP 151/73
--- NOTE | 2017-05-26 17:57 | NUR ---
PT IS CURRENTLY SITTING UP IN BED WITH EYES OPEN RESTING. IV PUMP HAS BEEN GOING OFF. THIS NURSE FIXED IV PUMP. PT DENIES ANY FURTHER NEED AT THIS TIME. BED IS IN LOW POSITION, SIDE RAILS ARE UP X2, AND CALL LIGHT IS IN REACH.
--- NOTE | 2017-05-26 20:25 | NUR ---
IV START ON RIGHT FOREARM. IV IN LEFT HAND APPEARED TO BE LEAKING, AND WAS OCCLUDED. PATIENT ALERT AND ORIENTED. RECIEVING RESPIRATORY TREATMENT. BED LOW, CALL LIGHT IN REACH.
[2017-05-26 21:46] VITALS: BP 148/73
[2017-05-27 01:22] VITALS: BP 186/78
--- NOTE | 2017-05-27 02:56 | NUR ---
PT RESTING COMFORTABLY, NO NEEDS AT THIS TIME. CONTINUE TO MONITOR CLOSELY.
--- NOTE | 2017-05-27 03:29 | NUR ---
REMOVED IV FROM LEFT HAND THAT HAD BECOME OCCLUDED. CATHETER INTACT. PATIENT TOLERATED. USING THE NEW IV ON HER RIGHT FOREARM FOR ANTIBIOTICS.
[2017-05-27 04:54] VITALS: BP 177/129
[2017-05-27 06:02] LABS: HEMATOCRIT 36.8 % (36.0-48.0); HEMOGLOBIN 12.2 g/dL (12-16); MCH 30.6 pg (26.0-34.0); MCHC 33.2 g/dL (31.0-37.0); MCV 92.2 fL (80.0-100.0); MEAN PLATELET VOLUME 10.8 fL (7.4-10.4); PLATELET COUNT 108 10x3/uL (130-400); RBC 3.99 10x6/uL (4.00-5.40)
[2017-05-27 06:05] LABS: WBC 2.2 10x3/uL (4.8-10.8)
[2017-05-27 06:27] LABS: ALBUMIN 2.7 g/dL (3.4-5.0); ANION GAP 9.3 mmol/L (8-16); BILIRUBIN - TOTAL 0.4 mg/dL (0.2-1.3); CALCIUM 8.6 mg/dL (8.5-10.1); CARBON DIOXIDE 31.4 mmol/L (21.0-32.0); CREATININE - SERUM 0.9 mg/dL (0.6-1.3); POTASSIUM - SERUM 3.7 mmol/L (3.5-5.1); PROTEIN - SERUM 6.4 g/dL (6.4-8.2)
[2017-05-27 06:36] LABS: EOSINOPHILS 4 % (0-7); LYMPHOCYTES 32 % (15-50); MONOCYTES 10 % (2-11); NEUTROPHILS 42 % (40-80); PLATELET ESTIMATE NORMAL
[2017-05-27 07:57] VITALS: BP 140/81
--- NOTE | 2017-05-27 08:00 | NUR ---
AM ROUNDS COMPLETED. INTRODUCED MYSELF TO PT PRIMARY RN FOR TODAYS SHIFT. IN REPORT I REC'D THAT PT WAS CONFUSED HOWEVER SHE IS CURRENTLY A&O COULD TELL ME HOW SHE GOT HERE, WHERE SHE LIVES AND SITUATION ETC. SO WILL CONTINUE TO MONITER THAT. PT STATES SHE IS DOING WELL OVERALL BUT TIRED OF BEING IN HOSPITAL SO MUCH LATELY SHE HAS APPARENTLY HAD SEVERAL VISITS THIS YEAR. NO CURRENT PAIN OR NEEDS AT THIS TIME. CL IN REACH, BED IN LOWEST, SIDE RAILS X2 AND MARIBEL PAD IN PLACE. WILL CPOC.
--- NOTE | 2017-05-27 10:00 | NUR ---
URINE SPECIMEN NEEDED ALONG WITH SPUTUM AND PT STATES SHE HAS THROWN UP AND NOT COUGHED ANYTHING UP SO WILL CONTINUE TO WAIT, HOWEVER URINE SPECIMEN IS NOT AVAILABLE PT HAS HAD URGENCY AND INCONTINENCE BUT USUALLY IS CONTINENT SHE STATES. EXPLAINED IN/OUT CATH IN CASE WE HAVE TO DO THAT TO COLLECT ONE AND SHE PREFERS NOT TO AND STATES IF SHE HAS A BEDSIDE COMMODE SHE MIGHT BE ABLE TO MAKE IT SO WE WILL FIND A BSC AND TRY TO ENCOURAGE CC COLLECTION. NO FURTHER NEEDS AT THIS TIME. CL IN REACH, BED IN LOWEST, SIDE RAILS X2. WILL CPOC.
[2017-05-27 11:44] VITALS: BP 132/64
--- NOTE | 2017-05-27 13:53 | NUR ---
PT SITTING UP IN BED RECIEVING BREATHING TX AT THIS TIME. PT REFUSED HER COUGHING MEDICATION AND BENZONATATE AND C/O IT MAKING HER NAUSEATED, WILL HOLD FOR NOW AND CONTACT PRIMARY FOR PRN LUTHERFRAN. PT VOICED THANKS AND DENIES ANY FURTHER NEEDS AT THIS TIME. CL IN REACH, BED IN LOWEST, SIDE RAILS X2. WILL CPOC.
[2017-05-27 15:08] VITALS: BP 118/58
[2017-05-27 21:02] VITALS: BP 166/66
--- NOTE | 2017-05-27 23:54 | NUR ---
PATIENT IS ATTEMPTING TO SLEEP AT THIS TIME. ALERT AND ORIENTED TO PERSON AND PLACE. SHE IS UNSURE OF THE TIME, AND SITUATION. DENIES ANY PAIN AT THIS TIME. BED LOW, CALL LIGHT IN REACH.
[2017-05-28 00:19] VITALS: BP 151/79
[2017-05-28 04:52] LABS: BASOPHILS 0.4 % (0-2); EOSINOPHILS 4.2 % (0-7); HEMATOCRIT 36.6 % (36.0-48.0); LYMPHOCYTES 29.5 % (15-50); MCH 30.3 pg (26.0-34.0); MCHC 32.8 g/dL (31.0-37.0); MCV 92.4 fL (80.0-100.0); MEAN PLATELET VOLUME 11.5 fL (7.4-10.4); MONOCYTES 17.6 % (2-11); NEUTROPHILS 48.3 % (40-80); PLATELET COUNT 107 10x3/uL (130-400); RBC 3.96 10x6/uL (4.00-5.40); RDW 13.1 % (11.5-14.5); WBC 2.6 10x3/uL (4.8-10.8)
[2017-05-28 05:16] VITALS: BP 190/84
[2017-05-28 05:31] LABS: ALBUMIN 2.8 g/dL (3.4-5.0); ANION GAP 10.2 mmol/L (8-16); BILIRUBIN - TOTAL 0.4 mg/dL (0.2-1.3); CALCIUM 8.6 mg/dL (8.5-10.1); CARBON DIOXIDE 30.4 mmol/L (21.0-32.0); CREATININE - SERUM 0.9 mg/dL (0.6-1.3); POTASSIUM - SERUM 3.6 mmol/L (3.5-5.1); PROTEIN - SERUM 6.4 g/dL (6.4-8.2)
--- NOTE | 2017-05-28 06:46 | NUR ---
IV APPEARS TO HAVE BECOME OCCLUDED. EDEMA IN PATIENTS ARMS HAS CAUSED DIFFICULTY IN MAINTAINING AN IV FOR MORE THEN TWO DAYS. WHEN ATTEMPTING TO START A NEW IV ON THE OPPOSITE ARM, THE PATIENT REFUSED TO BE STUCK AT THAT TIME. BED LOW, CALL LIGHT IN REACH.
[2017-05-28 06:50] LABS: D-DIMER-QUANTITATIVE 0.52 ug/mLFEU (0.20-0.54)
[2017-05-28 06:51] LABS: INR 1.01 (0.85-1.17); PROTIME 12.9 SECONDS (11.6-15.0)
--- NOTE | 2017-05-28 08:15 | NUR ---
AM ROUNDS COMPLETED. INTRODUCED MYSELF TO PT PRIMARY RN FOR TODAYS SHIFT. PT FAMILAR WITH ME FROM YESTERDAY HER NURSE. PTS R.FA PIV INFILTRATED AND R.ARM SWOLLEN, D/C PIV WITH CATHETER TIP FULLY INTACT AND PROVIDED HER WITH A WARM PACK FOR COMFORT. 20 GUAGE PIV INSERTED X1 STICK TO L.UPPER ARM. PT SWALLOWED HER AM MEDICATIONS WITHOUT ANY DIFFICULTIES. CL IN REACH, BED IN LOWEST, SIDE RAILS X2 PT DENIES ANY FURTHER NEEDS AT THIS TIME. WILL CPOC.
--- NOTE | 2017-05-28 10:00 | NUR ---
PT UP TO BEDSIDE CHAIR SITTING UP AND STATES SHE IS FEELING GOOD IN CHAIR. AT BEDSIDE FOR CONSULT. PT LISTENING AND VERBALIZED UNDERSTANDING. CL IN REACH. WILL CTM.
[2017-05-28 10:12] VITALS: Ht 162.6 cm; Wt 87.6 kg
--- NOTE | 2017-05-28 10:57 | NUR ---
CALLED PHARMACY FOR GRANIX INJ ITS NOT AVAILABLE ON FLOOR. WILL CONTINUE TO WAIT.
[2017-05-28 11:42] VITALS: BP 147/77
--- NOTE | 2017-05-28 12:30 | NUR ---
PT SITTING UP IN BEDSIDE CHAIR EATING LUNCH. PT STATES SHE IS FEELING A LITTLE BETTER BUT STILL NAUSEATED ON/OFF PT REQUEST COKE AND STATES THE CARBONATION HAS BEEN HELPING. PROVIDED PT WITH IT AND WILL CTM. NO FURTHER NEEDS AT THIS TIME.
--- NOTE | 2017-05-28 15:20 | NUR ---
PT ACCIDENTLY PULLED OUT HER L.UPPER ARM PIV. NEW 20 GUAGE PIV INSERTED IN L.UPPER ARM AROUND SHOULDER. PROVIDED PT WITH PRN ZOFRAN FOR NAUSEA. NO FURTHER NEEDS AT THIS TIME. WILL CTM.
[2017-05-28 16:07] VITALS: BP 152/78
[2017-05-28 20:00] VITALS: BP 148/73
[2017-05-29] VITALS: BP 151/67
[2017-05-29 04:00] VITALS: BP 149/61
[2017-05-29 06:22] LABS: APTT 36.7 SECONDS (22.8-39.4)
[2017-05-29 06:49] LABS: ALBUMIN 3.1 g/dL (3.4-5.0); ANION GAP 15.4 mmol/L (8-16); BILIRUBIN - TOTAL 0.8 mg/dL (0.2-1.3); CALCIUM 8.9 mg/dL (8.5-10.1); CARBON DIOXIDE 29.1 mmol/L (21.0-32.0); POTASSIUM - SERUM 3.5 mmol/L (3.5-5.1)
[2017-05-29 06:52] LABS: HEMATOCRIT 37.7 % (36.0-48.0); HEMOGLOBIN 12.4 g/dL (12-16); MCH 30.8 pg (26.0-34.0); MCHC 32.9 g/dL (31.0-37.0); MCV 93.5 fL (80.0-100.0); MEAN PLATELET VOLUME 11.3 fL (7.4-10.4); PLATELET COUNT 117 10x3/uL (130-400); RBC 4.03 10x6/uL (4.00-5.40); RDW 13.3 % (11.5-14.5); WBC 21.1 10x3/uL (4.8-10.8)
[2017-05-29 07:00] LABS: LYMPHOCYTES 11 % (15-50); MONOCYTES 3 % (2-11); NEUTROPHILS 76 % (40-80); PLATELET ESTIMATE DECREASED
--- NOTE | 2017-05-29 07:20 | NUR ---
REPORT RECEIVED ON PATIENT. MORNING ROUNDS MADE. PATIENT LAYING IN BED W/ EYES CLOSED. CHEST RISES AND FALLS EQUALLY BILAT. NAD NOTED AT THIS TIME. BED IS IN LOWEST POSITION, CALL LIGHT IN REACH, BED RAILS UP X2. WILL CONTINUE TO MONITOR. CPOC.
[2017-05-29 08:18] VITALS: BP 134/71
--- NOTE | 2017-05-29 11:15 | NUR ---
PATIENT SITTING UP IN BED. MORINING MEDS GIVEN WITHOUT ISSUES. C/O HER NOSE BEING DRY AND HURTING FROM HER O2. CONNECTED SALINE HUMIDIFIER TO O2. INSTRUCTED PATIENT TO LET ME KNOW IF THAT WAS NOT HELPING. DENIES ANY OTHER NEEDS AT THIS TIME. CPOC.
[2017-05-29 12:27] VITALS: BP 161/81
--- NOTE | 2017-05-29 13:54 | NUR ---
EMBOSSING TOOLSETTER GIVING PATIENT BED BATH AT THIS TIME. CPOC
--- NOTE | 2017-05-29 16:28 | NUR ---
PATIENT SITTING IN CHAIR AT BEDSIDE. C/O PAIN, "9" ON 0-10 SCALE. 500MG TYLENOL GIVEN, ABLE TO HAVE Q6H PRN. EDUCATED PATIENT ON PAIN MANAGEMENT. INSTRUCTED NOT TO LET PAIN GET TO A "9" BEFORE ASKING FOR PAIN MEDS. PT VOICED UNDERSTANDING. PT ALSO C/O IV HURTING. DURING ASSESSMENT, IV SITE IS NOTED TO BE RED AND HARD TO THE TOUCH. IV REMOVED, CATHETER TIP INTACT. DRESSING APPLIED. HUGO AYOUB WILL ATTEMPT TO RESITE. WILL CONTINUE TO MONITOR. CPOC.
[2017-05-29 16:38] VITALS: BP 166/85
--- NOTE | 2017-05-29 16:39 | NUR ---
22G IV CATHETER INSERTED INTO PTS LEFT HAND X1 STICK. IV FLUIDS WITH IV ANTIBIOTICS HOOKED BACK UP ORDERED.
--- NOTE | 2017-05-29 19:23 | NUR ---
EVENING ROUNDS MADE. PATIENT SITTING IN CHAIR AT BEDSIDE. DENIES ANY NEEDS AT THIS TIME. INSTRUCTED TO USE CALL LIGHT FOR ASSISTANCE BEFORE GETTING OUT OF CHAIR. PATIENT VOICED UNDERSTANDING. CALL LIGHT IN REACH. REPORT GIVEN.
[2017-05-29 21:06] VITALS: BP 181/52
[2017-05-30 00:58] VITALS: BP 179/78
--- NOTE | 2017-05-30 05:10 | NUR ---
PT RESTING WELL IN BED, CALL LIGHT IN REACH. RESPIRATIONS EVEN AND UNLABORED. WILL CONTINUE TO MONITOR.
[2017-05-30 06:32] VITALS: BP 174/81
--- NOTE | 2017-05-30 07:46 | NUR ---
AM ROUNDING- RECEIVED REPORT FROM SENIOR PROCESS ANALYST NURSE VIKRAM. PT IS CURRENTLY SITTING UP IN CHAIR WITH EYES OPEN RESTING. ON 02 AT 2L VIA NC. ON MONITOR SHOWING SR, HR 85. IV SEEN TO LEFT HAND WITH NS RUNNING AT 25CC. LETICIA, WITH RESP IN ROOM NOW ABOUT TO GIVE PT A BREATHING TX. NO NEED AT THIS TIME. WILL CONTINUE TO MONITOR AND CONTINUE WITH PLAN OF CARE.
[2017-05-30 08:22] VITALS: BP 165/86
--- NOTE | 2017-05-30 09:55 | NUR ---
AM MEDICAITONS GIVEN AND SHIFT ASSESSMENT DONE. PT IS CURRENTLY SITTING UP IN CHAIR AT BEDSIDE. PT IS REQUESTING SOMETHING FOR HER EARS BECAUSE THEY ARE ITCHING. WILL TALK WITH DOCTOR AND SEE ABOUT GETITNG PT SOME EAR DROPS. WILL CONTINUE TO MONITOR.
[2017-05-30 12:37] VITALS: BP 147/81
--- NOTE | 2017-05-30 14:36 | NUR ---
PT IS CURRENTLY SITTING UP IN CHAIR RESTING. PT UNHOOKED FROM IV (NS RUNNING AT KVO FOR IV ANTIBIOTICS), TO TAKE A BREAK. NO NEED AT THIS CURRENT TIME. WILL CONTINUE TO MONITOR.
--- NOTE | 2017-05-30 15:28 | NUR ---
PT ASSISTED BACK TO BED WITH HELP FROM STEPHIE LOPEZ. PT IS WANTTING TO REST. WILL CONTINUE TO MONITOR.
[2017-05-30 16:28] VITALS: BP 175/72
--- NOTE | 2017-05-30 16:38 | NUR ---
Rehab Note- Acute Rehab Prescreen order received. The patient recently discharged from [facility] Acute Rehab. Visited with the patient and she is requesting to just get back to her apartment at [facility] where her little dog is. Spoke with SHANTANU Sheldon. Will continue to follow at this time. Thank you for this referral! Yamini Campbell RN Clinical Liaison, [facility] Rehab
[2017-05-30 16:40] LABS: BASOPHILS 0.1 % (0-2); EOSINOPHILS 0 % (0-7); HEMATOCRIT 37.6 % (36.0-48.0); HEMOGLOBIN 12.4 g/dL (12-16); IMMATURE GRANULOCYTES 0.7 % (0-5); LYMPHOCYTES 7.4 % (15-50); MCH 30.5 pg (26.0-34.0); MCV 92.6 fL (80.0-100.0); MEAN PLATELET VOLUME 11.9 fL (7.4-10.4); MONOCYTES 4.2 % (2-11); NEUTROPHILS 87.6 % (40-80); PLATELET COUNT 129 10x3/uL (130-400); RBC 4.06 10x6/uL (4.00-5.40); RDW 13.1 % (11.5-14.5)
[2017-05-30 16:45] LABS: WBC 11.5 10x3/uL (4.8-10.8)
--- NOTE | 2017-05-30 16:50 | NUR ---
DR. ROSENBERG ON UNIT. STEPHIE LOPEZ INFORMED HIM OF PT C/O EAR HURTING/ITCHING PRIOR ON SHIFT (SLOAN NICHOLE NP TOLD STEPHIE LOPEZ TO INFORM DR. ROSENBERG OF THIS). DR. ROSENBERG STATES TO TELL SLOAN NICHOLE NP. THIS NURSE INFORMES DR. ROSENBERG THAT SLOAN NICHOLE NP TOLD STEPHIE LOPEZ TO ASK HIM ABOUT PTS EAR. NO NEW ORDERS RECEIVED.
[2017-05-30 17:07] LABS: CALCIUM 9.1 mg/dL (8.5-10.1); CARBON DIOXIDE 26.6 mmol/L (21.0-32.0); CREATININE - SERUM 1.1 mg/dL (0.6-1.3); POTASSIUM - SERUM 3.6 mmol/L (3.5-5.1)
--- NOTE | 2017-05-30 17:21 | NUR ---
SIMIN DELEON INFORMS ME THAT PTS B/P IS ELVATED. THIS NURSE CHECKS PTS KAY B/P AND IT IS 172/82. DR. PADGETT ON UNIT. INFORMED HER OF THIS. DR. PADGETT STATES SHE WILL HAVE SLOAN NICHOLE NP LOOK AT IT TOMORROW BECAUSE SHE DOESN'T WANT TO GIVE HER B/P MEDICATION IF IT DOESN'T STAY ELEVATED. WILL CONTINUE TO MONITOR.
--- NOTE | 2017-05-30 18:06 | NUR ---
PT IS CURRENTLY SITTING UP IN BED WITH EYES OPEN RESTING. DENIES ANY NEED AT THIS TIME. WILL CONTINUE TO MONITOR.
[2017-05-30 21:26] VITALS: BP 156/72
[2017-05-31] VITALS: BP 164/67
--- NOTE | 2017-05-31 01:42 | NUR ---
PT RESTING WELL IN BED, RESPIRATIONS EVEN AND UNLABORED. CALL LIGHT IN REACH, WILL CONTINUE PLAN OF CARE.
--- NOTE | 2017-05-31 03:23 | NUR ---
PT IN BED RESTING QUIETLY. BREATHING EVEN AND UNLABORED. BED IN LOW POSITION, CALL LIGHT WITHIN REACH. WILL CTM.
[2017-05-31 06:27] VITALS: BP 201/90
[2017-05-31 06:49] LABS: BASOPHILS 0 % (0-2); EOSINOPHILS 0.3 % (0-7); HEMATOCRIT 35.1 % (36.0-48.0); HEMOGLOBIN 11.7 g/dL (12-16); IMMATURE GRANULOCYTES 0.8 % (0-5); LYMPHOCYTES 10.2 % (15-50); MCH 30.7 pg (26.0-34.0); MCHC 33.3 g/dL (31.0-37.0); MCV 92.1 fL (80.0-100.0); MEAN PLATELET VOLUME 11.7 fL (7.4-10.4); MONOCYTES 6.7 % (2-11); PLATELET COUNT 139 10x3/uL (130-400); RBC 3.81 10x6/uL (4.00-5.40); RDW 13.2 % (11.5-14.5); WBC 14.1 10x3/uL (4.8-10.8)
[2017-05-31 07:10] LABS: ANION GAP 11.2 mmol/L (8-16); CARBON DIOXIDE 29.7 mmol/L (21.0-32.0); POTASSIUM - SERUM 3.9 mmol/L (3.5-5.1)
[2017-05-31 07:13] LABS: CREATININE - SERUM 0.8 mg/dL (0.6-1.3)
--- NOTE | 2017-05-31 07:15 | NUR ---
REPORT RECEIVED. RR EVEN AND UNLABORED. PT DENIES NEEDS AT THIS TIME. WILL CTM.
[2017-05-31 07:31] VITALS: BP 186/70
[2017-05-31 11:41] VITALS: BP 153/77
[2017-05-31] MEDS ORDERED: ALBUTEROL2.5 MG/3 M UPD (13:33)
[2017-05-31] MEDS ORDERED: PREDNISONE10 MG PO (13:47)
--- NOTE | 2017-05-31 14:17 | NUR ---
Nutrition Follow Up: Pt is eating 73% meal avg on an AHA [facility] soft diet. +BM 05/31/17. No new wt to assess. Labs reviewed -glucose elevated some. Meds noted including Solu-Medrol, Lasix. Rec continue current diet with FIRER POWERHOUSE recs for consistencies. RD following.
--- NOTE | 2017-05-31 15:30 | NUR ---
PTS BP IS STILL ELEVATED. WILL GIVE ORDERED BP MEDS AND RECHECK IN 1 HR. WILL CTM.
--- NOTE | 2017-05-31 16:25 | NUR ---
Patient Name: DREW CHAIREZ Encounter No: [id number] : 1935 Primary Insurance: MEDICARE A & B Anticipated DC Date: 05-31-2017 Planned Disposition: Inpatient Rehab External Planned Provider: [facility] INPATIENT REHAB DCP follow-up note: CM SPOKE TO JERONIMO OF INPATIENT REHAB, THEY PLAN TO ACCEPT PT TODAY FOR REHAB. PT NOTIFIED, IN AGREEMENT WITH DISCHARGE TO INPATIENT REHAB, REPORTS SHE HAS SPOKEN TO HER SON WHO IS ALSO IN AGREEMENT. CM CALLED PT'S SON, LEONORA, , VOICE MAIL WAS NOT SET UP, CM UNABLE TO LEAVE MESSAGE. IMPORTANT MESSAGE FROM MEDICARE PROVIDED AND DISCUSSED. [facility] INPATIENT REHAB TO CONTACT MED 2 NURSE WITH ROOM NUMBER WHEN READY TO ACCEPT PT AND NURSE REPORT. Edu Minor, CASE MANAGEMENT
[2017-05-31 16:37] VITALS: BP 188/87
--- NOTE | 2017-05-31 18:00 | NUR ---
PT DISCHARGED. D/C INSTRUCTIONS PROVIDED, PAPER WORK SIGNED. TELE REMOVED AND RETURNED TO SLITTER CUT OFF OPERATOR. IV CATHTER REMOVED WITH CATHETER TIP INTACT. DENIES FURTHER NEEDS. CORRIDOR REDEVELOPMENT MANAGER WILL TAKE PT DOWN TO REHAB IN WHEELCHAIR. REPORT ALREADY CALLED TO REHAB NURSE.
--- NOTE | 2017-05-31 18:37 | NUR ---
PT LEFT FLOOR VIA WHEELCHAIR.
[2017-06-06 15:19] LABS: AEROBE ID Final report (())
[2017-06-07 15:25] LABS: AEROBE ID Final report (())
[2017-06-08 15:23] LABS: AEROBE ID Final report (()); RESULT 1 Pseudomonas putida (())
== END 2017-05-31 18:37 | DRG 177 ==
LOC: D.ER 10:00 → D.M2 15:11
PROVIDERS: Emergency Medicine; Family Medicine; Internal Medicine Hematology & Oncology; Internal Medicine Pulmonary Disease; ADMIT Family Medicine
DX: J69.0 Pneumonitis due to inhalation of food and vomit (principal); I50.33 Acute on chronic diastolic (congestive) heart failure; J96.21 Acute and chronic respiratory failure with hypoxia; G93.41 Metabolic encephalopathy; J44.1 Chronic obstructive pulmonary disease with (acute) exacerbation; K21.9 Gastro-esophageal reflux disease without esophagitis; F41.9 Anxiety disorder, unspecified; F32.9 Major depressive disorder, single episode, unspecified; I11.0 Hypertensive heart disease with heart failure; E87.6 Hypokalemia; H35.30 Unspecified macular degeneration; Z99.81 Dependence on supplemental oxygen; I07.1 Rheumatic tricuspid insufficiency; I27.20 Pulmonary hypertension, unspecified; D70.9 Neutropenia, unspecified; E55.9 Vitamin D deficiency, unspecified

== ENCOUNTER 2017-05-31 17:13 | Inpatient (IN) | payer MEDICARE, BC ==
[~2017-05-31] VITALS: Ht 162.6 cm; Wt 87.5 kg
[~2017-05-31 17:13] MED LIST changes: +ALBUTEROL2.5 MG/3 M UPD; +BETAPACE 80 MG80 MG PO; +CRANBERRY 400 M1 TA1 PO; +DETROL LA4 MG PO; +K-TAB10 MEQ PO; +MYRBETRIQ25 MG PO; +NEURONTIN 400400 MG PO; +PREDNISONE10 MG PO; +PROAIR HFA8.5 GM INH; +TUMS500 MG PO
--- NOTE | 2017-05-31 19:00 | NUR ---
PATIENT IN BED, LYING ON LEFT SIDE. DENIES CURRENT NEEDS.
[2017-05-31 19:44] VITALS: BP 197/80; BMI 33.2
--- NOTE | 2017-05-31 20:45 | NUR ---
PLACED A CALL TO DR. AMBROSIO TO REPORT ELEVATED BP ON PATIENT 197/80 LEFT AND 195/90 RIGHT. RECEIVED NEW ORDER FOR CLONIDINE 0.1MG PO Q6H PRN BP >170 SBP OR 105 DBP.
--- NOTE | 2017-05-31 20:55 | NUR ---
GAVE PATIENT SCHEDULED HS MEDS AND CLONIDINE 0.1MG FOR ELEVATED BP. TOLD HER I WILL RETURN TO DO HER ADMISSION ASSESSMENT AND HISTORY.
--- NOTE | 2017-05-31 22:20 | NUR ---
AWOKE PATIENT AND INITIATED ADMISSION ASSESSMENT.
--- NOTE | 2017-05-31 23:05 | NUR ---
ADMISSION ASSESSMENT AND HISTORY COMPLETE. PATIENT SIGNED ADMISSION DOCUMENTS. CHAIN MACHINE OPERATOR NOW ASSISTING PATIENT UP TO BR.
--- NOTE | 2017-06-01 02:15 | NUR ---
RESTING IN BED, SUPINE. HOB UP 15 DEGREES. CONTINUES ON O2 @ 2L PER N/C.
--- NOTE | 2017-06-01 04:35 | NUR ---
IN BED, EYES CLOSED. RESPIRATIONS ARE QUIET AND UNLABORED.
--- NOTE | 2017-06-01 05:50 | NUR ---
GAVE PATIENT SCHEDULED LASIX AND ASSISTED HER UP TO BR TO URINATE AND CHANGE BRIEF AFTER MODERATE INCONTINENCE.
[2017-06-01 06:56] LABS: BASOPHILS 0.1 % (0-2); EOSINOPHILS 0.1 % (0-7); HEMATOCRIT 36.9 % (36.0-48.0); HEMOGLOBIN 12.4 g/dL (12-16); IMMATURE GRANULOCYTES 1.3 % (0-5); LYMPHOCYTES 11.9 % (15-50); MCH 30.7 pg (26.0-34.0); MCHC 33.6 g/dL (31.0-37.0); MCV 91.3 fL (80.0-100.0); MEAN PLATELET VOLUME 11.4 fL (7.4-10.4); MONOCYTES 10.2 % (2-11); NEUTROPHILS 76.4 % (40-80); RBC 4.04 10x6/uL (4.00-5.40); RDW 13.2 % (11.5-14.5); WBC 11.1 10x3/uL (4.8-10.8)
[2017-06-01 06:57] LABS: ANION GAP 9.2 mmol/L (8-16); CALCIUM 9.7 mg/dL (8.5-10.1); CARBON DIOXIDE 31.6 mmol/L (21.0-32.0); CREATININE - SERUM 0.9 mg/dL (0.6-1.3); POTASSIUM - SERUM 3.8 mmol/L (3.5-5.1)
[2017-06-01 07:03] LABS: PLATELET COUNT 168 10x3/uL (130-400)
--- NOTE | 2017-06-01 07:31 | NUR ---
RESTING QUIETLY IN BED. CALL LIGHT IN REACH. BED IN LOWEST POSITION.
[2017-06-01 08:07] VITALS: BP 194/95
--- NOTE | 2017-06-01 08:15 | NUR ---
PT RESTING IN BED WITH EYES OPEN CALL LIGHT IN REACH NO PROBLEMS WILL MONITER
[2017-06-01 09:49] VITALS: Ht 162.6 cm; Wt 87.5 kg
--- NOTE | 2017-06-01 16:32 | NUR ---
EVERARDO ADMITTED TO REHAB FROM ACUTE FLOOR. DISCHARGE PLANS ARE FOR PATIENT TO RETURN HOME AT DISCHARGE. WILL CONTINUE TO FOLLOW WITH PATIENT
--- NOTE | 2017-06-01 17:18 | NUR ---
PT RESTING IN BED WITH EYES OPEN CALL LIGHT IN REACH WILL MONITER
[2017-06-01 19:30] VITALS: BP 151/67
--- NOTE | 2017-06-01 19:30 | NUR ---
ASSESSMENT PER FLOW SHEET, PT ALERT AND ORIENTED, PT REQUESTS O2 TO STAY OFF FOR A FEW MINUTES, STATES "MY NOSE IS A LITTLE SORE", PT REPORTS FLATUS AND BM TODAY, PT DENIES NEEDS OR PAIN, BED IN LOW POSITION, SIDE RAILS X 3, CALL LIGHT IN REACH, BED ALARM ON AND WORKING PROPERLY
--- NOTE | 2017-06-01 20:35 | NUR ---
PT RESTING WITH EYES CLOSED, RESP QUIET, NO DISTRESS NOTED, LEFT UNDISTURBED AT THIS TIME, BED IN LOW POSITION, SIDE RAILS X 2, CALL LIGHT IN REACH, BED ALARM ON AND WORKING PROPERLY
--- NOTE | 2017-06-01 22:39 | NUR ---
PT RESTING WITH EYES CLOSED, AROUSES TO SOFT VERBAL STIMULATION, ADM 2100 MEDS PO PER MD ORDERS WITH FRESH H20, PT DENIES NEEDS OR PAIN AT THIS TIME, BED IN LOW POSITION, SIDE RAILS X 2, CALL LIGHT IN REACH, BED ALARM ON AND WORKING PROPERLY
--- NOTE | 2017-06-02 00:02 | NUR ---
PT AWAKE, WATCHING TV, DENIES NEEDS OR PAIN AT THIS TIME, BED IN LOW POSITION, SIDE RAILS X 2, CALL LIGHT IN REACH, BED ALARM ON AND WORKING PROPERLY
--- NOTE | 2017-06-02 04:26 | NUR ---
PT RESTING WITH EYES CLOSED, RESP QUIET, NO DISTRESS NOTED, LEFT UNDISTURBED AT THIS TIME, BED IN LOW POSITION, SIDE RAILS X 3, CALL LIGHT IN REACH, BED ALARM ON AND WORKING PROPERLY
--- NOTE | 2017-06-02 05:44 | NUR ---
PT RESTING WITH EYES CLOSED, AROUSES TO SOFT VERBAL STIMULATION, ADM 0600 MEDS PO PER MD ORDERS, SEE EMAR, PT WET, PT UP TO BR WITH ASSISTANCE VIA WC, PT VOIDED AND HAD BM, PT CLEANED UP, ADULT BRIEF PLACED, SHIRT CHANGED, BEDDING CHANGED, PT BACK TO BED, DENIES NEEDS OR PAIN, BED IN LOW POSITION, SIDE RAILS X 3, CALL LIGHT IN REACH, BED ALARM ON AND WORKING PROPERLY
--- NOTE | 2017-06-02 06:46 | NUR ---
SHIFT REPORT TO DAY SHIFT
--- NOTE | 2017-06-02 07:30 | NUR ---
SITTING UP IN BED WATCHING MORNING NEWS. DENIES ANY NEEDS OR PAIN. ALERT AND ORIENTED X4. CALL LIGHT WITHIN REACH, BED LOW AND ALARM ON. WILL CONTINUE OT MONITOR
[2017-06-02 07:36] LABS: BASOPHILS 0.1 % (0-2); EOSINOPHILS 0.3 % (0-7); HEMATOCRIT 36.7 % (36.0-48.0); HEMOGLOBIN 12.3 g/dL (12-16); IMMATURE GRANULOCYTES 2.7 % (0-5); LYMPHOCYTES 15.3 % (15-50); MCH 30.2 pg (26.0-34.0); MCHC 33.5 g/dL (31.0-37.0); MCV 90.2 fL (80.0-100.0); MEAN PLATELET VOLUME 11.6 fL (7.4-10.4); MONOCYTES 14.2 % (2-11); NEUTROPHILS 67.4 % (40-80); RBC 4.07 10x6/uL (4.00-5.40); WBC 9.6 10x3/uL (4.8-10.8)
[2017-06-02 07:47] LABS: ANION GAP 9.5 mmol/L (8-16); CALCIUM 9.3 mg/dL (8.5-10.1); CARBON DIOXIDE 31.4 mmol/L (21.0-32.0); CREATININE - SERUM 1.1 mg/dL (0.6-1.3); POTASSIUM - SERUM 3.9 mmol/L (3.5-5.1)
[2017-06-02 07:48] LABS: PLATELET COUNT 204 10x3/uL (130-400)
--- NOTE | 2017-06-02 08:28 | NUR ---
SITTING UP EATING BREAKFAST. DENIES NEEDS.
[2017-06-02 08:49] LABS: MONO NEGATIVE (NEGATIVE)
--- NOTE | 2017-06-02 09:14 | NUR ---
ADMINISTERED MORNING MEDS WHOLE WITHOUT DIFFICULTY. DENIES ANY NEEDS OR PAIN. CALL LIGHT WITHIN REACH, BED LOW AND ALARM ON. WILL CONTINUE TO MONITOR
--- NOTE | 2017-06-02 09:52 | NUR ---
SITTING UP IN BED READING NEWSPAPER. DENIES ANY NEEDS OR PAIN. CALL LIGHT WITHIN REACH, BED LOW AND ALARM ON. WILL CONTINUE TO MONITOR
--- NOTE | 2017-06-02 10:51 | NUR ---
SITTING UP IN BED WATCHING TV. DENIES ANY NEEDS OR PAIN. NO S/SX OF ACUTE DISTRESS NOTED. WILL CONTINUE TO MONITOR
--- NOTE | 2017-06-02 13:57 | NUR ---
IN THERAPY GYM WITH RUFINO OCCUPATIONAL THERAPY. NO S/SX OF RESPIRATORY DISTRESS NOTED. WILL CONTINUE TO MONITOR
--- NOTE | 2017-06-02 17:01 | NUR ---
LYING IN BED WATCHING TV. DENIES ANY NEEDS OR PAIN. CALL LIGHT AND PERSONAL ITEMS WITHIN REACH, BED LOW AND ALARM ON. WILL CONTINUE TO MONITOR
--- NOTE | 2017-06-02 19:50 | NUR ---
PT. SITTING ON THE SIDE OF HER BED FILLING OUT DIET MENU FOR TOMORROW. CALL LIGHT WITHIN REACH.
--- NOTE | 2017-06-02 21:14 | NUR ---
PT IS RESTING IN BED WATCHING TV. ALERT AND ORIENTED X 3. DENIES ACUTE PAIN OR DISCOMFORT AT THIS TIME.VSS. O2 IS ON @ 2LPM PER NC. NO SOB NOTED. ASSISTED TO THE BATHROOM PRN. SR'S ARE UP X 2 IN BED. CALL LIGHT AND BEDSIDE TABLE ARE WITHIN EASY REACH.
[2017-06-02 21:32] VITALS: BP 127/66
--- NOTE | 2017-06-03 00:04 | NUR ---
RESTING IN BED WITH EYES CLOSED
--- NOTE | 2017-06-03 03:00 | NUR ---
RESTING IN BED WITH EYES CLOSED.
--- NOTE | 2017-06-03 05:51 | NUR ---
PT RESTING IN BED WITH EYES CLOSED. NO DISTRESS NOTED.
[2017-06-03 08:00] VITALS: BP 140/69
--- NOTE | 2017-06-03 08:00 | NUR ---
PATIENT IS ALERT/ORIENT WITH SOME FORGETFULNESS. MARIBEL ALARM ON WHILE IN BED. USING CALL LIGHT FOR NEEDS. CALL LIGHT WITHIN REACH.
--- NOTE | 2017-06-03 09:50 | NUR ---
PATIENT IN REHAB ROOM. WORKING WITH PHYSICAL THERAPIST. DENIES ANY PAIN/DISC AT THIS TIME.
--- NOTE | 2017-06-03 11:04 | NUR ---
DR. MARQUES AMBROSIO INTO SEE PATIENT. NEW ORDER RECEIVED FOR KEFLEX. SORE THROAT
--- NOTE | 2017-06-03 16:00 | NUR ---
RESTING QUIETLY.CL IN REACH.
--- NOTE | 2017-06-03 17:41 | NUR ---
PATIENT HELPED INTO BATHROOM. STAND BY ASST OF ONE.
--- NOTE | 2017-06-03 19:40 | NUR ---
PT. IN BED WITH HOB UP FOR COMFORT AND IS WATCHING TV. ASSESSMENT COMPLETED. PT. REQUESTED TO HAVE O2 PLACED HER O2 SAT WA 92%. PLACED N/C O2 AT 2L/MIN. CALL LIGHT WITHIN REACH.
[2017-06-03 19:45] VITALS: BP 176/6
--- NOTE | 2017-06-03 23:10 | NUR ---
PT. IN BED WITH HOB UP FOR COMFORT AND IS LYING ON HER RIGHT SIDE. EYES CLOSED AND RESP. EVEN. CALL LIGHT WITHIN REACH.
--- NOTE | 2017-06-04 03:00 | NUR ---
PT. IN BED WITH HOB UP FOR COMFORT AND IS LYING ON HER RIGHT SIDE. EYES CLOSED AND RESP. EVEN. CALL LIGHT WITHIN REACH.
--- NOTE | 2017-06-04 08:00 | NUR ---
SHIFT ASSMT COMPLETED.DENIES NEEDS.CL IN REACH.BREAKFAST GIVEN.
[2017-06-04 08:38] VITALS: BP 188/95
--- NOTE | 2017-06-04 12:00 | NUR ---
EATING LUNCH IN BED.DENIES NEEDS.
--- NOTE | 2017-06-04 16:00 | NUR ---
RESTING QUIETLY.EATING SHERBERT.
--- NOTE | 2017-06-04 19:15 | NUR ---
SHIFT REPORT COMPLETED FROM DAY SHIFT NURSE.
--- NOTE | 2017-06-04 19:16 | NUR ---
PT. IN BED WITH HOB UP FOR COMFORT AND IS WATCHING TV. CALL LIGHT WITHIN REACH.
--- NOTE | 2017-06-04 20:20 | NUR ---
MEDS GIVEN ORDERED.
--- NOTE | 2017-06-04 23:39 | NUR ---
REST IN BED, SIDERAIL X2, CALL LIGHT IN REACH.
[2017-06-05 00:31] VITALS: BP 135/65
--- NOTE | 2017-06-05 04:09 | NUR ---
ASSISTED PT TO BATHROOM.
--- NOTE | 2017-06-05 08:00 | NUR ---
PATIENT ALERT/SOME FORGETFULNESS NOTED. BED ALARM ON. CALL LIGHT WITHIN REACH. PATIENT USING CALL LIGHT FOR NEEDS
[2017-06-05 08:52] VITALS: BP 144/62
--- NOTE | 2017-06-05 10:21 | NUR ---
PATIENT WORKING WITH PHYSICAL THERAPIST. WALKING UP AND DOWN HALLWAY WITH WHEELED WALKER AND GAIT BELT ONE ASST.
--- NOTE | 2017-06-05 12:48 | NUR ---
PATIENT RESTING BACK IN BED AFTER THERAPY.
--- NOTE | 2017-06-05 16:48 | NUR ---
PATIENT SITTING UP IN A WHEELCHAIR IN ROOM. VISITORS IN ROOM. CALL LIGHT WITHIN REACH
--- NOTE | 2017-06-05 18:55 | NUR ---
PATIENT UP IN W/C AT BEDSIDE.
--- NOTE | 2017-06-05 19:15 | NUR ---
RECEIVED REPORT COMPLETED FROM DAY SHIFT NURSE.
--- NOTE | 2017-06-05 19:15 | NUR ---
REPORT COMPLETED FROM DAY SHIFT NURSE.
--- NOTE | 2017-06-05 20:45 | NUR ---
MEDS GIVEN ORDERED.
[2017-06-05 22:07] VITALS: BP 145/53
[2017-06-05 22:07] LABS: EBV - EARLY ANTIGEN AB IGG 11.6 U/mL (0.0-8.9); EBV VIRAL CAPSID AB IGM <36.0 U/mL (0.0-35.9)
--- NOTE | 2017-06-06 00:15 | NUR ---
ASSISTED PT TO BATHROOM.
--- NOTE | 2017-06-06 02:58 | NUR ---
REST QUIETLY IN BED, CALL LIGHT IN REACH.
--- NOTE | 2017-06-06 04:51 | NUR ---
IN BED, CALL LIGHT IN REACH.
--- NOTE | 2017-06-06 06:25 | NUR ---
ASSISTED PT TO BATHROOM.
[2017-06-06 08:00] VITALS: BP 151/7
--- NOTE | 2017-06-06 09:53 | NUR ---
Nutrition Follow Up: Pt stated that her appetite is good. She asked for a peanut butter and jelly sandwich for a snack. RD ordered sandwich. Pt is eating 69% meal avg on an AHA diet. +BM 06/05/17. Labs reviewed. Meds noted including Lasix, Prednisone. Rec continue AHA diet with STERILIZATION TECHNICIAN recs for consistencies. RD following.
--- NOTE | 2017-06-06 10:37 | NUR ---
Alert and oriented. Up in wc, in therapy at this time. No c/o pain. O2 @ 2L NC.
--- NOTE | 2017-06-06 13:13 | RHP ---
PATIENT: DREW CHAIREZ MEDICAL RECORD: [id number] ACCOUNT: [id number] LOCATION:[facility]1113 : 33 ADMISSION DATE: 05/31/17 REHABILITATION HISTORY AND PHYSICAL EXAMINATION POST ADMISSION PHYSICIAN EXAMINATION DATE OF ADMISSION: 05/31/2017. ADMITTING DIAGNOSIS: Diffuse myopathy. HISTORY OF PRESENT ILLNESS: The patient is an 82-year-old female patient who we had actually had in the rehab for, who was brought in by EMS secondary to altered mental status. She was found to be very lethargic, apparently had vomited some, thought she might have a little bit of an aspiration pneumonia. She was admitted with hypoxia and aspiration, history of diastolic heart failure with ejection fraction of 60%, macular degeneration, COPD, asthma, and reflux disease. She uses home O2. She had a history of pulmonary hypertension, moderate tricuspid regurgitation, hypertension, and degenerative joint disease. Chest x-ray on 06/03/2017 showed cardiomegaly, CHF changes with interstitial lung disease. A BNP of 2966. A lactic acid of 1.2. She was found to have gram-negative rods per sputum culture also, noted to have pancytopenia. Her confusion is somewhat cleared. She lives in [facility] in an independent apartment. She was moderately independent with bed mobility using a rolling walker and moderately independent with her ADLs. She was recently in our rehab with a good outcome. She has been in the acute hospital since 05/24/2017 with increasing weakness, proximal weakness noted with difficulty rising from a bed or from the chair. She wears O2 p.r.n., but she has been requiring it here lately. She is seen by speech therapy for oropharyngeal dysphagia, aspiration pneumonia. She has been followed by pulmonary and oncology during her stay. She is moderate to max assist for mobility and set up from max assist for ADLs. She would like to return back to her prior level of functioning if possible. COMORBIDITIES: Includes myopathy, dysphagia, acute aspiration pneumonia, nausea and vomiting, hypokalemia, hypertension, CHF, gastroesophageal reflux disease, obstructive sleep apnea, macular degeneration, moderate pulmonary hypertension, chronic back pain, depression, anxiety, vitamin D deficiency, debility, and neutropenia. PAST MEDICAL HISTORY: Significant for cataracts, macular degeneration, hypertension, CHF, shortness of breath, COPD, gastroesophageal reflux disease, arthritis, chronic back pain, depression and anxiety. PAST SURGICAL HISTORY: Includes appendectomy, hysterectomy. She has had ACF on the right, axillary lymph node removal from her breast area, and cholecystectomy. ALLERGIES: No known drug allergies. CURRENT MEDICATIONS: Include Singulair 10 mg daily, potassium 10 mEq b.i.d., Detrol-LA 4 mg daily, Zoloft 50 mg daily, prednisone on a taper, furosemide 20 mg b.i.d., vitamin D 2000 units daily, amlodipine 2.5 mg daily, Catapres 0.1 mg as needed for elevated blood pressure, sotalol 80 mg b.i.d., Neurontin 400 mg b.i.d., Tums chewable daily, Advair 2 puffs b.i.d., DuoNeb updrafts as needed, Ventolin p.r.n., and polyethylene glycol 17 g in 8 ounces of water daily. HISTORY AND PHYSICAL [id number] DREW CHAIREZ HABITS: No alcohol or tobacco use. FAMILY HISTORY: Noncontributory. SOCIAL HISTORY: The patient hopes to return back to [facility], get back to her prior level of functioning. REVIEW OF SYSTEMS: GENERAL: Does complain of weakness and fatigue. HEENT: Denies cold, cough, or congestion. CARDIOVASCULAR: Denies chest pain. PHYSICAL EXAMINATION: VITAL SIGNS: Stable, afebrile. GENERAL: Elderly female in no acute distress, alert upon exam. HEENT: Normocephalic and atraumatic. Mucosa moist. NECK: Supple with no lymphadenopathy. LUNGS: Clear at this time. HEART: Irregular rate and rhythm. ABDOMEN: Benign. EXTREMITIES: No clubbing, cyanosis, or edema. NEUROLOGIC: Seems intact. LABORATORY DATA: White count is 11.1, H&H 12 and 36, and platelet count was noted to be 168. Sodium 141, potassium 3.8, BUN and creatinine of 19 and 0.9, blood sugar is noted to be 118. ASSESSMENT: This is an 82-year-old female patient admitted to rehab with a working diagnosis of disuse myopathy. The patient has potential to make improvement. We instituted the following multidisciplinary therapies including to, but not limited to physical, occupational, respiratory, speech, nutritional services, prosthetics and orthotics. Given her complex condition and risk for more complications, rehabilitation services cannot be provided at a low level of care such as a fci facility. PLAN: 1. Admit to [facility] rehab for intensive inpatient therapy to include the following disciplines: A. Physical therapy to improve gait, all transfer skills and bed mobility and modifying level. B. Occupational therapy to improve activities of daily living to a modified independent level. C. Case management to assist with discharge planning and placement options. D. Nutrition to assist with nutritional needs. E. Rehabilitation nursing to assist in monitoring the patient's underlying medical conditions and to assist with any type of bowel or bladder management. 2. The patient's current medication and medical care will be continued. 3. The patient will be placed on standard fall precautions. 4. We will monitor her breathing closely. 5. We will hopefully get her back to [facility]. TRANSINT:[id number] Voice Confirmation ID: [id number] DOCUMENT ID: [id number] NICK notes whether there has been none or any medical/functional HISTORY AND PHYSICAL [id number] DREW CHAIREZ change since admission: - No change since pre-admission screen. NICK attests patient continues to be appropriate for IRF: - Continues to be appropriate. MARQUES AMBROSIO MD at 1313 CC: [id number] DICTATION DATE: 06/01/17 0834 MICROBIOLOGY TECHNOLOGIST: 06/01/17 1116 ADM IN [facility] [address] [place] [address]
--- NOTE | 2017-06-06 14:40 | NUR ---
Participated in therapy today. Resting with eyes closed at this time. No change in assessment.
--- NOTE | 2017-06-06 19:20 | NUR ---
PATIENT AWAKE. DENIES CURRENT NEEDS.
--- NOTE | 2017-06-06 20:20 | NUR ---
IN BED, RESTING QUIETLY IN BED ON LEFT SIDE.
[2017-06-06 22:10] VITALS: BP 132/71
--- NOTE | 2017-06-06 22:10 | NUR ---
ASSESSMENT AND HS MEDS COMPLETE. APPLIED NEWLY-ORDERED CALMOSEPTINE TO EXTENSIVE EXCORIATION WITH PEELING SKIN TO INFERIOR BUTTOCKS, GLUTEAL CLEFT, PERINEAL AREA AND GROINS. MAY POSSIBLY BE YEASTY WELL, EVIDENCED BY FINE NON-RAISED RASH AROUND EDGES AT BUTTOCKS.
--- NOTE | 2017-06-07 00:10 | NUR ---
RESTING IN BED, EYES CLOSED.
--- NOTE | 2017-06-07 01:50 | NUR ---
IN BED, EYES CLOSED. HAD DEHYDROGENATION CONVERTER HELPER CHECK FOR INCONTINENCE ABOUT 0100. SHE FOUND PATIENT TO BE DRY.
--- NOTE | 2017-06-07 04:30 | NUR ---
IN BED LYING ON RIGHT SIDE AFTER ASSIST UP TO BR [place]OUN 0410. WAS CONTINENT UNTIL SHE ATTEMPTED TO SIT ON COMMODE, THEN BEGAN TO URINATE BEFORE SHE WAS ABLE TO SIT ON THE SEAT. SPECIAL WARFARE BOAT OPERATOR CLEANSED PATIENT AND FLOOR AROUND COMMODE.
--- NOTE | 2017-06-07 06:20 | NUR ---
IN BED, EYES CLOSED. APPEARS COMFORTABLE.
--- NOTE | 2017-06-07 06:20 | NUR ---
RESTING IN BED, EYES CLOSED.
[2017-06-07 06:51] LABS: BASOPHILS 0.2 % (0-2); EOSINOPHILS 0.8 % (0-7); HEMATOCRIT 37.3 % (36.0-48.0); HEMOGLOBIN 12.5 g/dL (12-16); IMMATURE GRANULOCYTES 0.5 % (0-5); LYMPHOCYTES 16.4 % (15-50); MCH 30.7 pg (26.0-34.0); MCHC 33.5 g/dL (31.0-37.0); MCV 91.6 fL (80.0-100.0); MEAN PLATELET VOLUME 10.9 fL (7.4-10.4); MONOCYTES 5.8 % (2-11); NEUTROPHILS 76.3 % (40-80); PLATELET COUNT 197 10x3/uL (130-400); RBC 4.07 10x6/uL (4.00-5.40); RDW 13.1 % (11.5-14.5); WBC 12.7 10x3/uL (4.8-10.8)
[2017-06-07 06:55] LABS: ANION GAP 10.2 mmol/L (8-16); CALCIUM 9.4 mg/dL (8.5-10.1); CARBON DIOXIDE 30.5 mmol/L (21.0-32.0); CREATININE - SERUM 0.9 mg/dL (0.6-1.3); POTASSIUM - SERUM 4.7 mmol/L (3.5-5.1)
[2017-06-07 07:57] VITALS: BP 147/55
[2017-06-07] MEDS ORDERED: NYSTATIN1 PWD TOPICAL (09:03)
--- NOTE | 2017-06-07 10:13 | NUR ---
ALERT AND ORIENTED. UP TO BR IN WC. CALMOSEPTINE APPLIED TO BUTTOCKS AND NYSTATIN POWDER APPLIED TO YEASTY GROIN AREAS. NO C/O PAIN. SOB NOTED WITH EXERTION.
--- NOTE | 2017-06-07 10:26 | NUR ---
PATIENT DISCHARGING HOME WITH FAMILY. [facility] WILL RESUME CARE OF PATIENT. NO NEW DME NEEDED AT THIS TIME.HOUSE CALLS WILL SEE PATIENT IN 7-[address] AMBROSIO 06/14/17 @ 9:15. ORDERS HAVE BEEN FAXED TO [facility] WITH CONFORMATION RECIEVED. DISCHARGE INSTRUCTIONS WITH FIM DATA FAXED TO [facility] AT DR. RODRIGES OFFICE. DISCHARGE SUMMARY FAXED TO [facility].
--- NOTE | 2017-06-07 11:48 | NUR ---
PATIENT CHOICE FORM FOR HOME HEALTH AND IMFM FORM SIGNED, EXPLAINED AND FILED IN CHART
--- NOTE | 2017-06-07 15:22 | NUR ---
AN ORDER HAS BEEN FAXED TO [facility] PATIENT FOR A NEBULIZER TO BE DELIVERED TO PATIENTS HOME.
--- NOTE | 2017-06-07 15:33 | NUR ---
DC INSTRUCTIONS GIVEN TO PATIENT AND SON. BOTH VERBALIZES UNDERSTANDING. NEW MEDS CALLED INTO [facility]. SON TO PICK THEM UP. ASSISTED TO CAR FOR DC HOME.
--- NOTE | 2017-07-27 14:37 | DS ---
PATIENT:DREW CHAIREZ :33 MEDICAL RECORD: [id number] DISCHARGE SUMMARY ADMISSION DATE: 05/31/17 DISCHARGE DATE: 06/07/17 This is a discharge dated 06/07/2017 from inpatient rehab. PRIMARY DIAGNOSIS: Decreased functional ability and ability to provide activities of daily living secondary to myopathy. SECONDARY DIAGNOSES: 1. Dysphagia. 2. Chronic diastolic congestive heart failure. 3. COPD. 4. Chronic hypoxic respiratory failure. 5. Pulmonary hypertension. 6. Hypokalemia. 7. Hypertension. 8. Macular degeneration. 9. Reflux. 10. Obstructive sleep apnea. 11. Depression/anxiety. 12. Degenerative joint disease. HOSPITAL COURSE: Full H&P is located elsewhere on the chart on this 82-year-old female who was admitted to inpatient rehab for physical therapy and occupational therapy to improve gait, transfer skills, bed mobility, and activities of daily living to a modified independent level. She was evaluated by PT and OT and their plans of care were followed. She required nursing home care for observation and assessment and medication administration. Electrolytes were managed by protocol. She continued with supplemental oxygen and she remained on appropriate home medications including inhalers for respiratory support. She was on a prednisone taper. She was started on Keflex for some pharyngitis. Strep and mono testing was negative. She was cooperative with therapies, progressing towards goals. Case management was involved for discharge planning. She was considered stable for discharge on 06/07/2017. DISCHARGE MEDICATIONS: As per discharge medication reconciliation. DISCHARGE DISPOSITION: The patient is discharged home. She will continue her current diet and level of activity. She will have home health for continued PT and OT. She will be seen by [facility] and she will follow up with primary care in 1 week and specialists as directed. At least 30 minutes was spent in this discharge activity. TRANSINT:[id number] Voice Confirmation ID: [id number] DOCUMENT ID: [id number] Dictated By: KISHOR JORDAN I have interviewed/examined the above patient and agree with these documented findings. DISCHARGE SUMMARY REPORT [id number] DREW CHAIREZ, MARQUES COBB at 1802 at 1437 CC: [id number] DICTATION DATE: 07/23/17 1426 EYELET ROW MARKER: 07/24/17 0149 DIS IN 06/07/17 [facility] [address] [place] [address]
== END 2017-06-07 14:20 | disposition home health service (06) | DRG 91 ==
LOC: D.REHAB 17:13
PROVIDERS: ADMIT Emergency Medicine
DX: G72.89 Other specified myopathies (principal); J69.0 Pneumonitis due to inhalation of food and vomit; I50.33 Acute on chronic diastolic (congestive) heart failure; J96.21 Acute and chronic respiratory failure with hypoxia; I11.0 Hypertensive heart disease with heart failure; I50.9 Heart failure, unspecified; R13.12 Dysphagia, oropharyngeal phase; K21.9 Gastro-esophageal reflux disease without esophagitis; G47.33 Obstructive sleep apnea (adult) (pediatric); H35.30 Unspecified macular degeneration; E87.6 Hypokalemia; F41.8 Other specified anxiety disorders; E55.9 Vitamin D deficiency, unspecified; R53.81 Other malaise; D70.9 Neutropenia, unspecified; R53.1 Weakness

== ENCOUNTER 2017-09-05 12:18 | Inpatient (IN) | payer MEDICARE, BC ==
[~2017-09-05] VITALS: Ht 162.6 cm; Wt 88.2 kg
[~2017-09-05 12:18] MED LIST changes: +NYSTATIN1 PWD TOPICAL
[2017-09-05 13:21] LABS: BASOPHILS 0.2 % (0-2); EOSINOPHILS 1.5 % (0-7); HEMATOCRIT 38.8 % (36.0-48.0); HEMOGLOBIN 13.2 g/dL (12-16); IMMATURE GRANULOCYTES 0.3 % (0-5); LYMPHOCYTES 17.1 % (15-50); MCV 91.1 fL (80.0-100.0); MEAN PLATELET VOLUME 10.8 fL (7.4-10.4); MONOCYTES 8.3 % (2-11); NEUTROPHILS 72.6 % (40-80); PLATELET COUNT 210 10x3/uL (130-400); RBC 4.26 10x6/uL (4.00-5.40); RDW 12.7 % (11.5-14.5); WBC 9.2 10x3/uL (4.8-10.8)
[2017-09-05 13:30] LABS: ANION GAP 15.1 mmol/L (8-16); BILIRUBIN - TOTAL 0.59 mg/dL (0.2-1.3); CALCIUM 9.8 mg/dL (8.5-10.1); CREATININE - SERUM 1.1 mg/dL (0.6-1.3); POTASSIUM - SERUM 3.1 mmol/L (3.5-5.1); PROTEIN - SERUM 8.1 g/dL (6.4-8.2)
[2017-09-05 14:16] LABS: APPEARANCE CLOUDY (CLEAR); COLOR YELLOW (YELLOW)
[2017-09-05 14:17] LABS: BILIRUBIN NEGATIVE (NEGATIVE); GLUCOSE NEGATIVE (NEGATIVE); KETONE NEGATIVE (NEGATIVE); NITRITE POSITIVE (NEGATIVE); PROTEIN 3+ mg/dL (NEGATIVE); UROBILINOGEN NORMAL (NORMAL)
[2017-09-05 14:25] LABS: RED CELLS - URINE 0-5 /hpf (0-5); WHITE CELLS - URINE >50 /hpf (0-5)
[2017-09-05 14:26] LABS: BACTERIA MODERATE /hpf (NONE SEEN); EPITHELIAL CELLS 0-5 /hpf (0-5)
[2017-09-06] VITALS (7 sets, daily range): BP systolic 132–210; BP diastolic 61–89; Ht 162.6 cm; Wt 88.2 kg
[2017-09-06 06:32] LABS: BASOPHILS 0.4 % (0-2); EOSINOPHILS 3.3 % (0-7); HEMATOCRIT 37.3 % (36.0-48.0); HEMOGLOBIN 12.3 g/dL (12-16); IMMATURE GRANULOCYTES 0.4 % (0-5); LYMPHOCYTES 21.1 % (15-50); MCH 30.3 pg (26.0-34.0); MCV 91.9 fL (80.0-100.0); MEAN PLATELET VOLUME 11.4 fL (7.4-10.4); MONOCYTES 8.8 % (2-11); PLATELET COUNT 187 10x3/uL (130-400); RBC 4.06 10x6/uL (4.00-5.40)
[2017-09-06 06:33] LABS: WBC 6.7 10x3/uL (4.8-10.8)
[2017-09-06 07:18] LABS: ALBUMIN 3.5 g/dL (3.4-5.0); ALKALINE PHOSPHATASE 41 U/L (46-116); ALT (SGPT) 20 U/L (10-68); CARBON DIOXIDE 24.6 mmol/L (21.0-32.0); CHLORIDE - SERUM 107 mmol/L (98-107); PROTEIN - SERUM 6.7 g/dL (6.4-8.2); SODIUM 144 mmol/L (136-145); UREA NITROGEN 15 mg/dL (7-18)
[2017-09-06 07:21] LABS: CALC OSMOLALITY 288 mosm/kg (275-300); CREATININE - SERUM 0.5 mg/dL (0.6-1.3); GLUCOSE 119 mg/dL (74-106); POTASSIUM - SERUM 3.6 mmol/L (3.5-5.1); eGFR NON AFRICAN AMERICAN > 90 mL/min (90-120)
[2017-09-07 02:33] VITALS: BP 162/69
[2017-09-07 05:32] LABS: BASOPHILS 0.5 % (0-2); EOSINOPHILS 5.2 % (0-7); HEMOGLOBIN 11.9 g/dL (12-16); IMMATURE GRANULOCYTES 0.2 % (0-5); LYMPHOCYTES 24.6 % (15-50); MCH 30.4 pg (26.0-34.0); MCHC 33.1 g/dL (31.0-37.0); MCV 92.1 fL (80.0-100.0); MEAN PLATELET VOLUME 10.5 fL (7.4-10.4); MONOCYTES 10.4 % (2-11); NEUTROPHILS 59.1 % (40-80); PLATELET COUNT 165 10x3/uL (130-400); RBC 3.91 10x6/uL (4.00-5.40); RDW 12.9 % (11.5-14.5); WBC 5.8 10x3/uL (4.8-10.8)
[2017-09-07 05:37] LABS: ALBUMIN 3.1 g/dL (3.4-5.0); BILIRUBIN - TOTAL 0.57 mg/dL (0.2-1.3); CALCIUM 8.8 mg/dL (8.5-10.1); POTASSIUM - SERUM 3.3 mmol/L (3.5-5.1); PROTEIN - SERUM 6.6 g/dL (6.4-8.2)
[2017-09-07 05:50] LABS: ANION GAP 8.7 mmol/L (8-16); CARBON DIOXIDE 31.6 mmol/L (21.0-32.0); CREATININE - SERUM 0.8 mg/dL (0.6-1.3)
[2017-09-07 06:02] VITALS: BP 161/66
[2017-09-07 08:14] VITALS: BP 139/88
[2017-09-07 11:29] VITALS: BP 118/62
[2017-09-07 15:16] VITALS: BP 122/68
[2017-09-07 22:47] VITALS: BP 199/89
[2017-09-08 00:53] VITALS: BP 186/88
[2017-09-08 05:00] LABS: BASOPHILS 0.2 % (0-2); EOSINOPHILS 4.2 % (0-7); HEMATOCRIT 35.3 % (36.0-48.0); HEMOGLOBIN 11.7 g/dL (12-16); IMMATURE GRANULOCYTES 0.1 % (0-5); LYMPHOCYTES 18.6 % (15-50); MCH 30.3 pg (26.0-34.0); MCHC 33.1 g/dL (31.0-37.0); MCV 91.5 fL (80.0-100.0); MEAN PLATELET VOLUME 10.7 fL (7.4-10.4); NEUTROPHILS 66.9 % (40-80); PLATELET COUNT 175 10x3/uL (130-400); RBC 3.86 10x6/uL (4.00-5.40); WBC 8.6 10x3/uL (4.8-10.8)
[2017-09-08 05:20] LABS: ALBUMIN 3.2 g/dL (3.4-5.0); ANION GAP 10.6 mmol/L (8-16); BILIRUBIN - TOTAL 0.59 mg/dL (0.2-1.3); CALCIUM 8.6 mg/dL (8.5-10.1); CARBON DIOXIDE 30.8 mmol/L (21.0-32.0); CREATININE - SERUM 0.8 mg/dL (0.6-1.3); POTASSIUM - SERUM 3.4 mmol/L (3.5-5.1); PROTEIN - SERUM 6.7 g/dL (6.4-8.2)
[2017-09-08 06:39] VITALS: BP 214/75
[2017-09-08 08:27] VITALS: BP 134/80
[2017-09-08 10:58] VITALS: BP 138/73
[2017-09-08 14:46] VITALS: BP 129/68
[2017-09-08 19:00] VITALS: BP 181/91
[2017-09-09] VITALS: BP 184/90
[2017-09-09 04:00] VITALS: BP 168/80
[2017-09-09 05:38] LABS: BASOPHILS 0.5 % (0-2); EOSINOPHILS 5.1 % (0-7); HEMATOCRIT 37.9 % (36.0-48.0); HEMOGLOBIN 12.7 g/dL (12-16); IMMATURE GRANULOCYTES 0.1 % (0-5); LYMPHOCYTES 21.6 % (15-50); MCH 30.6 pg (26.0-34.0); MCHC 33.5 g/dL (31.0-37.0); MCV 91.3 fL (80.0-100.0); MEAN PLATELET VOLUME 10.9 fL (7.4-10.4); MONOCYTES 8.2 % (2-11); NEUTROPHILS 64.5 % (40-80); PLATELET COUNT 176 10x3/uL (130-400); RBC 4.15 10x6/uL (4.00-5.40); RDW 12.8 % (11.5-14.5); WBC 7.7 10x3/uL (4.8-10.8)
[2017-09-09 06:10] LABS: ALBUMIN 3.4 g/dL (3.4-5.0); BILIRUBIN - TOTAL 0.58 mg/dL (0.2-1.3); CALCIUM 8.8 mg/dL (8.5-10.1); CARBON DIOXIDE 30.7 mmol/L (21.0-32.0); CREATININE - SERUM 0.8 mg/dL (0.6-1.3); POTASSIUM - SERUM 3.7 mmol/L (3.5-5.1); PROTEIN - SERUM 6.5 g/dL (6.4-8.2)
[2017-09-09 09:03] VITALS: BP 184/94
[2017-09-09 11:55] VITALS: BP 172/80
[2017-09-09 16:00] VITALS: BP 177/95
[2017-09-09 21:44] VITALS: BP 151/76
[2017-09-10 00:30] VITALS: BP 116/69
[2017-09-10 04:30] VITALS: BP 164/60
[2017-09-10 04:34] LABS: BASOPHILS 0.4 % (0-2); EOSINOPHILS 4.8 % (0-7); HEMATOCRIT 35.9 % (36.0-48.0); HEMOGLOBIN 11.9 g/dL (12-16); IMMATURE GRANULOCYTES 0.3 % (0-5); LYMPHOCYTES 22.1 % (15-50); MCH 30.2 pg (26.0-34.0); MCHC 33.1 g/dL (31.0-37.0); MCV 91.1 fL (80.0-100.0); MEAN PLATELET VOLUME 10.9 fL (7.4-10.4); MONOCYTES 8.9 % (2-11); NEUTROPHILS 63.5 % (40-80); PLATELET COUNT 176 10x3/uL (130-400); RBC 3.94 10x6/uL (4.00-5.40); RDW 12.5 % (11.5-14.5); WBC 7.3 10x3/uL (4.8-10.8)
[2017-09-10 05:01] LABS: ALBUMIN 3.1 g/dL (3.4-5.0); ANION GAP 7.8 mmol/L (8-16); BILIRUBIN - TOTAL 0.54 mg/dL (0.2-1.3); CALCIUM 8.8 mg/dL (8.5-10.1); CARBON DIOXIDE 32.5 mmol/L (21.0-32.0); CREATININE - SERUM 0.9 mg/dL (0.6-1.3); POTASSIUM - SERUM 3.3 mmol/L (3.5-5.1); PROTEIN - SERUM 6.5 g/dL (6.4-8.2)
[2017-09-10 09:21] VITALS: BP 156/86
[2017-09-10 13:50] VITALS: BP 154/79
[2017-09-10 16:59] VITALS: BP 166/71
[2017-09-10 20:30] VITALS: BP 159/57
[2017-09-11 00:30] VITALS: BP 150/59
[2017-09-11 04:30] VITALS: BP 180/78
[2017-09-11 05:25] LABS: BASOPHILS 0.4 % (0-2); EOSINOPHILS 4.2 % (0-7); HEMATOCRIT 35.6 % (36.0-48.0); HEMOGLOBIN 11.9 g/dL (12-16); IMMATURE GRANULOCYTES 0.1 % (0-5); LYMPHOCYTES 20.4 % (15-50); MCH 30.5 pg (26.0-34.0); MCHC 33.4 g/dL (31.0-37.0); MCV 91.3 fL (80.0-100.0); MEAN PLATELET VOLUME 11.2 fL (7.4-10.4); NEUTROPHILS 66.9 % (40-80); PLATELET COUNT 188 10x3/uL (130-400); RDW 12.7 % (11.5-14.5); WBC 7.4 10x3/uL (4.8-10.8)
[2017-09-11 05:36] LABS: ALBUMIN 3.1 g/dL (3.4-5.0); ANION GAP 11.2 mmol/L (8-16); BILIRUBIN - TOTAL 0.6 mg/dL (0.2-1.3); CALCIUM 8.9 mg/dL (8.5-10.1); CARBON DIOXIDE 31.5 mmol/L (21.0-32.0); CREATININE - SERUM 0.8 mg/dL (0.6-1.3); POTASSIUM - SERUM 3.7 mmol/L (3.5-5.1); PROTEIN - SERUM 6.6 g/dL (6.4-8.2)
[2017-09-11 08:34] VITALS: BP 152/88
[2017-09-11] MEDS ORDERED: NORVASC10 MG PO (10:47)
[2017-09-11] MEDS ORDERED: MACROBID100 MG PO (10:52)
[2017-09-11 11:39] VITALS: BP 176/81
== END 2017-09-11 16:08 | DRG 689 ==
LOC: D.ER 12:18 → D.M2 19:31 → D.EDHOLD 19:31 → D.MS 19:31 → D.M2 22:37
PROVIDERS: Family Medicine; Family Medicine Adult Medicine
DX: N39.0 Urinary tract infection, site not specified (principal); G93.41 Metabolic encephalopathy; G62.9 Polyneuropathy, unspecified; K21.9 Gastro-esophageal reflux disease without esophagitis; I11.0 Hypertensive heart disease with heart failure; I50.9 Heart failure, unspecified; J44.9 Chronic obstructive pulmonary disease, unspecified; G47.33 Obstructive sleep apnea (adult) (pediatric); H35.30 Unspecified macular degeneration; F41.9 Anxiety disorder, unspecified; F32.9 Major depressive disorder, single episode, unspecified

== ENCOUNTER 2017-09-11 15:52 | Inpatient (IN) | payer MEDICARE, BC ==
[~2017-09-11] VITALS: Ht 162.6 cm; Wt 102.1 kg
--- NOTE | ~2017-09-11 | RHP ---
PATIENT: DREW CHAIREZ MEDICAL RECORD: [id number] ACCOUNT: [id number] LOCATION:[facility] Viviana1111 : 33 ADMISSION DATE: 09/11/17 REHABILITATION HISTORY AND PHYSICAL EXAMINATION POST ADMISSION PHYSICIAN EXAMINATION POST-ADMISSION PHYSICAL EXAMINATION AND HISTORY AND PHYSICAL DATE OF ADMISSION: 09/11/2017 ADMITTING DIAGNOSES: Debility secondary to urinary tract infection and acute mental status changes. HISTORY OF PRESENT ILLNESS: The patient admitted to the inpatient rehab for debility secondary to urinary tract infection and acute mental status change. She is an 82-year-old female patient, who presented to the [facility] hospital with altered mental status. Her son reported that she was unable to dress herself, complete her ADLs or complete any sentences. She was admitted to the [facility] hospital on 09/05 with altered mental status and UTI. She had a CT done, which showed no acute findings, was unable to do an MRI. She lives in an independent apartment at [facility] and was moderately independent with mobility, moderately independent with her ADLs. Her cognition is slowly clearing. She has been on IV antibiotics for UTI. She is currently on 2 liters nasal cannula of O2 and does pull it off occasionally. She currently has telemetry. She is an active son in her care and he is here from out of town. She ambulated 250 feet with physical therapy. She was unsteady, short of breath and required a rest break during ambulation. To get her back out to [facility], we are going to definitely do some therapy on her and get her back up to her prior level of functioning. Comorbidities include oropharyngeal dysphagia, UTI, hypertension, CHF, gastroesophageal reflux disease, COPD, obstructive sleep apnea, macular degeneration, and degenerative joint disease. PAST MEDICAL HISTORY: Significant for neuropathy, cataracts, macular degeneration, hypertension. She got a history of CHF, pneumonia, COPD, anxiety, arthritis, chronic back pain. PAST SURGICAL HISTORY: Includes appendectomy, hysterectomy. She has had a right axillary lymph node removal, breast mass removal which was benign, cholecystectomy, and lens implant. ALLERGIES: No known drug allergies. CURRENT MEDICATIONS: Include Ventolin updrafts. She is on Zoloft 50 mg daily, Floranex 460 mg daily, Detrol-LA 4 mg daily, Lasix 20 mg b.i.d., vitamin D 2000 units daily, amlodipine 10 mg daily, sotalol 80 mg b.i.d., potassium 10 mEq b.i.d., Nystatin powder to apply as necessary. She is on Macrodantin for UTI, Singulair 10 mg at bedtime, Neurontin 400 mg b.i.d., calcium 1000 mg every 4 hours, Advair HFA two puffs b.i.d., and polyethylene glycol 17 grams in 8 ounces of water daily. HABITS: No current alcohol or tobacco use. FAMILY HISTORY: Noncontributory. SOCIAL HISTORY: The patient hopes to return back to [facility], get back to HISTORY AND PHYSICAL [id number] DREW CHAIREZ her prior level of functioning. Her son is quite active in her care. REVIEW OF SYSTEMS: GENERAL: Does complain of weakness and fatigue. HEENT: Does complain of cold, cough, and congestion. CARDIOVASCULAR: Denies any chest pain. LUNGS: Does complain of shortness of breath. PHYSICAL EXAMINATION: VITAL SIGNS: Stable, afebrile. GENERAL: A somewhat obese female, in no acute distress on exam. HEENT: Normocephalic and atraumatic. Mucosa moist. NECK: Supple. No lymphadenopathy. LUNGS: Clear in upper downing. Decreased breath sounds in the bases. CARDIOVASCULAR: Regular rate and rhythm. ABDOMEN: Benign. EXTREMITIES: No clubbing, cyanosis, or edema. NEUROLOGIC: She does have noted weakness. LABORATORY DATA: White count of 7.2, H&H of 12 and 37, and platelet count of 200. Her sodium is 145, potassium 3.8, BUN and creatinine of 15 and 0.8, blood sugar was noted to 116. ASSESSMENT: This is an 82-year-old female patient admitted to the rehab with a working diagnosis of debility secondary to urinary tract infection associated with mental status changes. The patient has potential to make improvement. We will institute the following multidisciplinary therapies including, but not limited to, physical, occupational, respiratory, speech, nutritional services, prosthetics, and orthotics. Given her complex condition, risk for more complications, rehabilitation services cannot be provided at a low level of care such as a assisted facility. PLAN: 1. Admit to [facility] for intensive inpatient therapy to include the following disciplines: A. Physical therapy to improve gait, all transfer skills and bed mobility to a modified independent level. B. Occupational therapy to improve activities of daily living to a modified independent level. C. Case management to assist with discharge planning and placement options. D. Nutrition to assist with nutritional needs. E. Rehabilitation nursing to assist in monitoring the patient's underlying medical conditions and to assist with any type of bowel or bladder management. 2. The patient's current medications will be continued. 3. The patient will be placed on standard fall precautions. 4. The patient's estimated length of stay is approximately 7-10 days. 5. We will discuss this patient during care team staff meeting tomorrow. We will go ahead and update her FIM scores. We will work on getting her strength back and hopefully back out to [facility]. We will keep her son up to date with her care. TRANSINT:[id number] Voice Confirmation ID: [id number] DOCUMENT ID: [id number] NICK notes whether there has been none or any medical/functional HISTORY AND PHYSICAL [id number] DREW CHAIREZ change since admission: - No change since preadmission screen. NICK attests patient continues to be appropriate for IRF: - Continues to be appropriate. MARQUES AMBROSIO MD at 1344 CC: [id number] DICTATION DATE: 09/12/17 0836 TEXTILE MACHINE MAINTENANCE MECHANIC: 09/12/17 0937 ADM IN [place] [id number] [place] [id number]
[~2017-09-11 15:52] MED LIST changes: +MACROBID100 MG PO; +NORVASC10 MG PO
[2017-09-11 18:31] VITALS: BP 168/78; BMI 38.7
[2017-09-12 06:33] LABS: BASOPHILS 0.4 % (0-2); EOSINOPHILS 3.6 % (0-7); HEMATOCRIT 37.5 % (36.0-48.0); HEMOGLOBIN 12.5 g/dL (12-16); IMMATURE GRANULOCYTES 0.1 % (0-5); LYMPHOCYTES 20.3 % (15-50); MCH 30.3 pg (26.0-34.0); MCHC 33.3 g/dL (31.0-37.0); MCV 90.8 fL (80.0-100.0); MEAN PLATELET VOLUME 11.1 fL (7.4-10.4); MONOCYTES 8.8 % (2-11); NEUTROPHILS 66.8 % (40-80); PLATELET COUNT 200 10x3/uL (130-400); RBC 4.13 10x6/uL (4.00-5.40); RDW 12.6 % (11.5-14.5); WBC 7.2 10x3/uL (4.8-10.8)
[2017-09-12 06:44] LABS: CALCIUM 9.2 mg/dL (8.5-10.1); CARBON DIOXIDE 33.8 mmol/L (21.0-32.0); CREATININE - SERUM 0.8 mg/dL (0.6-1.3); POTASSIUM - SERUM 3.8 mmol/L (3.5-5.1)
[2017-09-12 08:40] VITALS: BP 167/78
[2017-09-12 13:49] VITALS: Ht 162.6 cm; Wt 102.1 kg
[2017-09-12 20:00] VITALS: BP 121/52
[2017-09-13 07:37] LABS: BASOPHILS 0.7 % (0-2); EOSINOPHILS 4.4 % (0-7); HEMATOCRIT 34.8 % (36.0-48.0); HEMOGLOBIN 11.5 g/dL (12-16); IMMATURE GRANULOCYTES 0.2 % (0-5); LYMPHOCYTES 22.9 % (15-50); MCH 30.4 pg (26.0-34.0); MCV 92.1 fL (80.0-100.0); MEAN PLATELET VOLUME 10.9 fL (7.4-10.4); MONOCYTES 9.7 % (2-11); NEUTROPHILS 62.1 % (40-80); PLATELET COUNT 199 10x3/uL (130-400); RBC 3.78 10x6/uL (4.00-5.40); RDW 12.6 % (11.5-14.5); WBC 6.1 10x3/uL (4.8-10.8)
[2017-09-13 07:45] LABS: CALCIUM 9.2 mg/dL (8.5-10.1); CARBON DIOXIDE 32.2 mmol/L (21.0-32.0); CREATININE - SERUM 0.9 mg/dL (0.6-1.3); POTASSIUM - SERUM 4.2 mmol/L (3.5-5.1)
[2017-09-13 09:29] VITALS: BP 150/74
[2017-09-13 19:05] VITALS: BP 126/70
[2017-09-14 06:58] VITALS: BP 115/72
[2017-09-14 19:51] VITALS: BP 144/59
[2017-09-15 06:25] LABS: BASOPHILS 0.6 % (0-2); EOSINOPHILS 4.9 % (0-7); HEMATOCRIT 33.8 % (36.0-48.0); IMMATURE GRANULOCYTES 0.2 % (0-5); MCH 30.3 pg (26.0-34.0); MCHC 32.5 g/dL (31.0-37.0); MCV 93.1 fL (80.0-100.0); MEAN PLATELET VOLUME 11.6 fL (7.4-10.4); MONOCYTES 9.4 % (2-11); NEUTROPHILS 59.9 % (40-80); PLATELET COUNT 209 10x3/uL (130-400); RBC 3.63 10x6/uL (4.00-5.40); RDW 12.5 % (11.5-14.5); WBC 6.3 10x3/uL (4.8-10.8)
[2017-09-15 07:03] LABS: ANION GAP 12.5 mmol/L (8-16); CREATININE - SERUM 0.9 mg/dL (0.6-1.3); POTASSIUM - SERUM 4.5 mmol/L (3.5-5.1)
[2017-09-15 08:14] VITALS: BP 138/70
[2017-09-15 22:30] VITALS: BP 139/63
[2017-09-16 07:11] VITALS: BP 138/61
[2017-09-16 19:39] VITALS: BP 127/52
[2017-09-17 08:00] VITALS: BP 94/70
[2017-09-17 19:30] VITALS: BP 124/54
[2017-09-18 05:56] LABS: BASOPHILS 0.7 % (0-2); HEMATOCRIT 34.7 % (36.0-48.0); HEMOGLOBIN 11.2 g/dL (12-16); IMMATURE GRANULOCYTES 0.2 % (0-5); LYMPHOCYTES 25.1 % (15-50); MCH 30.3 pg (26.0-34.0); MCHC 32.3 g/dL (31.0-37.0); MCV 93.8 fL (80.0-100.0); MEAN PLATELET VOLUME 11.8 fL (7.4-10.4); PLATELET COUNT 213 10x3/uL (130-400); RDW 12.3 % (11.5-14.5); WBC 5.6 10x3/uL (4.8-10.8)
[2017-09-18 06:05] LABS: ANION GAP 7.1 mmol/L (8-16); CALCIUM 9.1 mg/dL (8.5-10.1); CREATININE - SERUM 1.1 mg/dL (0.6-1.3); POTASSIUM - SERUM 4.1 mmol/L (3.5-5.1)
[2017-09-18 08:26] VITALS: BP 156/70
[2017-09-18 19:59] VITALS: BP 125/48
[2017-09-19 08:04] VITALS: BP 150/66
[2017-09-19 20:00] VITALS: BP 164/66
[2017-09-20 06:42] LABS: ANION GAP 8.7 mmol/L (8-16); CALCIUM 8.7 mg/dL (8.5-10.1); CARBON DIOXIDE 32.5 mmol/L (21.0-32.0); POTASSIUM - SERUM 4.2 mmol/L (3.5-5.1)
[2017-09-20 06:44] LABS: BASOPHILS 0.8 % (0-2); EOSINOPHILS 4.4 % (0-7); HEMATOCRIT 34.5 % (36.0-48.0); HEMOGLOBIN 11.3 g/dL (12-16); IMMATURE GRANULOCYTES 0.2 % (0-5); LYMPHOCYTES 24.6 % (15-50); MCH 30.5 pg (26.0-34.0); MCHC 32.8 g/dL (31.0-37.0); MEAN PLATELET VOLUME 11.6 fL (7.4-10.4); MONOCYTES 8.1 % (2-11); NEUTROPHILS 61.9 % (40-80); PLATELET COUNT 223 10x3/uL (130-400); RBC 3.71 10x6/uL (4.00-5.40); RDW 12.4 % (11.5-14.5); WBC 6.6 10x3/uL (4.8-10.8)
[2017-09-20 11:13] VITALS: BP 178/8
[2017-09-20 21:50] VITALS: BP 144/68
[2017-09-21 08:00] VITALS: BP 156/72
[2017-09-21 21:15] VITALS: BP 127/52
[2017-09-22 06:31] LABS: BASOPHILS 0.9 % (0-2); EOSINOPHILS 3.9 % (0-7); HEMATOCRIT 34.6 % (36.0-48.0); HEMOGLOBIN 11.2 g/dL (12-16); LYMPHOCYTES 21.8 % (15-50); MCH 30.2 pg (26.0-34.0); MCHC 32.4 g/dL (31.0-37.0); MCV 93.3 fL (80.0-100.0); MEAN PLATELET VOLUME 11.4 fL (7.4-10.4); MONOCYTES 9.4 % (2-11); PLATELET COUNT 208 10x3/uL (130-400); RBC 3.71 10x6/uL (4.00-5.40); RDW 12.6 % (11.5-14.5); WBC 6.5 10x3/uL (4.8-10.8)
[2017-09-22 06:44] LABS: ANION GAP 10.7 mmol/L (8-16); CALCIUM 8.9 mg/dL (8.5-10.1); CARBON DIOXIDE 31.6 mmol/L (21.0-32.0); CREATININE - SERUM 1.1 mg/dL (0.6-1.3); POTASSIUM - SERUM 4.3 mmol/L (3.5-5.1)
[2017-09-22 08:00] VITALS: BP 165/62
[2017-09-22 21:55] VITALS: BP 144/52
[2017-09-23 13:52] VITALS: BP 128/75
[2017-09-23 17:33] LABS: APPEARANCE HAZY (CLEAR)
[2017-09-23 17:37] LABS: COLOR ORANGE (YELLOW)
[2017-09-23 17:45] LABS: BACTERIA MANY /hpf (NONE SEEN); EPITHELIAL CELLS 0-5 /hpf (0-5); HYALINE CAST 0-5 /lpf (NONE SEEN); RED CELLS - URINE OCC /hpf (0-5)
[2017-09-23 20:15] VITALS: BP 1654/49
[2017-09-24 09:41] VITALS: BP 115/61
[2017-09-24 19:35] VITALS: BP 147/55
[2017-09-25 06:31] LABS: BASOPHILS 0.5 % (0-2); EOSINOPHILS 3.5 % (0-7); HEMATOCRIT 35.3 % (36.0-48.0); HEMOGLOBIN 11.2 g/dL (12-16); LYMPHOCYTES 24.2 % (15-50); MCH 29.9 pg (26.0-34.0); MCHC 31.7 g/dL (31.0-37.0); MCV 94.1 fL (80.0-100.0); MEAN PLATELET VOLUME 11.5 fL (7.4-10.4); MONOCYTES 8.9 % (2-11); NEUTROPHILS 62.9 % (40-80); PLATELET COUNT 193 10x3/uL (130-400); RBC 3.75 10x6/uL (4.00-5.40); RDW 12.5 % (11.5-14.5); WBC 5.9 10x3/uL (4.8-10.8)
[2017-09-25 06:49] LABS: ANION GAP 11.5 mmol/L (8-16); CALCIUM 9.1 mg/dL (8.5-10.1); CARBON DIOXIDE 30.9 mmol/L (21.0-32.0); POTASSIUM - SERUM 4.4 mmol/L (3.5-5.1)
[2017-09-25 08:00] VITALS: BP 130/94
[2017-09-25 19:23] VITALS: BP 188/74
[2017-09-26] MEDS ORDERED: BACTRIM DS TABL1 TAB PO (07:54)
[2017-09-26 08:15] VITALS: BP 133/50
[2017-09-26 19:24] VITALS: BP 127/54
[2017-09-27 07:58] LABS: BASOPHILS 0.7 % (0-2); EOSINOPHILS 3.6 % (0-7); HEMATOCRIT 35.1 % (36.0-48.0); HEMOGLOBIN 11.5 g/dL (12-16); LYMPHOCYTES 21.5 % (15-50); MCH 30.5 pg (26.0-34.0); MCHC 32.8 g/dL (31.0-37.0); MCV 93.1 fL (80.0-100.0); MONOCYTES 8.4 % (2-11); NEUTROPHILS 65.8 % (40-80); PLATELET COUNT 163 10x3/uL (130-400); RBC 3.77 10x6/uL (4.00-5.40); RDW 12.5 % (11.5-14.5); WBC 6.1 10x3/uL (4.8-10.8)
[2017-09-27 08:01] VITALS: BP 143/61
[2017-09-27 08:14] LABS: ANION GAP 12.7 mmol/L (8-16); CALCIUM 8.8 mg/dL (8.5-10.1); CARBON DIOXIDE 29.9 mmol/L (21.0-32.0); CREATININE - SERUM 1.1 mg/dL (0.6-1.3); POTASSIUM - SERUM 4.6 mmol/L (3.5-5.1)
[2017-09-27 19:46] VITALS: BP 158/54
[2017-09-28 08:23] VITALS: BP 139/57
== END 2017-09-28 12:10 | disposition home health service (06) | DRG 948 ==
LOC: D.REHAB 15:52
PROVIDERS: Emergency Medicine
DX: R53.81 Other malaise (principal); N39.0 Urinary tract infection, site not specified; R13.12 Dysphagia, oropharyngeal phase; R41.82 Altered mental status, unspecified; I11.0 Hypertensive heart disease with heart failure; I50.9 Heart failure, unspecified; K21.9 Gastro-esophageal reflux disease without esophagitis; J44.9 Chronic obstructive pulmonary disease, unspecified; G47.33 Obstructive sleep apnea (adult) (pediatric); M19.90 Unspecified osteoarthritis, unspecified site; H35.30 Unspecified macular degeneration

== ENCOUNTER → 2018-02-07 20:53 | Outpatient (CLI) | payer MEDICARE, BC ==
[2017-09-12 13:49] VITALS: BMI 38.6
[~2018-02-07 20:53] MED LIST changes: +BACTRIM DS TABL1 TAB PO
== END | disposition home or self-care (01) ==
LOC: D.MAMMO 14:30
DX: N64.4 Mastodynia (principal)

== ENCOUNTER 2018-05-16 10:11 | Emergency (ER) | payer MEDICARE, BC ==
[~2018-05-16] VITALS: Ht 162.6 cm; Wt 92.3 kg
[2018-05-16 10:26] VITALS: Ht 162.6 cm; Wt 92.3 kg
[2018-05-16] MEDS ORDERED: ULTRAM50 MG PO (10:37)
[2018-05-16 16:00] VITALS: BP 174/70
== END 2018-05-16 14:15 | disposition other institution (70) ==
LOC: D.ER 10:11
DX: S09.90XA Unspecified injury of head, initial encounter (principal); W18.30XA Fall on same level, unspecified, initial encounter; Y93.89 Activity, other specified; Y92.129 Unspecified place in nursing home as the place of occurrence of the external cause; I11.0 Hypertensive heart disease with heart failure; I50.9 Heart failure, unspecified; J44.9 Chronic obstructive pulmonary disease, unspecified; K21.9 Gastro-esophageal reflux disease without esophagitis

== ENCOUNTER 2018-07-21 21:01 | Emergency (ER) | payer MEDICARE, BC ==
[~2018-07-21] VITALS: Ht 162.6 cm; Wt 90.9 kg
[~2018-07-21 21:01] MED LIST changes: +ULTRAM50 MG PO
[2018-07-21 21:07] VITALS: Ht 162.6 cm; Wt 90.9 kg
[2018-07-21 21:38] LABS: BASOPHILS 0.7 % (0-2); EOSINOPHILS 5.5 % (0-7); HEMATOCRIT 36.5 % (36.0-48.0); HEMOGLOBIN 11.8 g/dL (12-16); IMMATURE GRANULOCYTES 0.3 % (0-5); LYMPHOCYTES 25.9 % (15-50); MCH 30.4 pg (26.0-34.0); MCHC 32.3 g/dL (31.0-37.0); MCV 94.1 fL (80.0-100.0); MONOCYTES 9.6 % (2-11); PLATELET COUNT 188 10x3/uL (130-400); RBC 3.88 10x6/uL (4.00-5.40); RDW 13.6 % (11.5-14.5); WBC 7.5 10x3/uL (4.8-10.8)
[2018-07-21 21:56] LABS: ALBUMIN 3.3 g/dL (3.4-5.0); ANION GAP 12.2 mmol/L (8-16); BILIRUBIN - TOTAL 0.14 mg/dL (0.2-1.3); CARBON DIOXIDE 30.8 mmol/L (21.0-32.0); CREATININE - SERUM 2.1 mg/dL (0.6-1.3); PROTEIN - SERUM 6.8 g/dL (6.4-8.2)
[2018-07-21 22:00] LABS: APPEARANCE CLEAR (CLEAR); BILIRUBIN NEGATIVE (NEGATIVE); COLOR STRAW (YELLOW); GLUCOSE NEGATIVE (NEGATIVE); KETONE NEGATIVE (NEGATIVE); NITRITE NEGATIVE (NEGATIVE); PROTEIN NEGATIVE (NEGATIVE); UROBILINOGEN NORMAL (NORMAL)
[2018-07-21 23:17] VITALS: BP 138/67
== END 2018-07-21 23:20 ==
LOC: D.ER 21:01
PROVIDERS: Emergency Medicine
DX: R00.1 Bradycardia, unspecified (principal); I12.9 Hypertensive chronic kidney disease with stage 1 through stage 4 chronic kidney disease, or unspecified chronic kidney disease; N18.9 Chronic kidney disease, unspecified; S30.0XXA Contusion of lower back and pelvis, initial encounter; W18.11XA Fall from or off toilet without subsequent striking against object, initial encounter; Y93.89 Activity, other specified; Y92.121 Bathroom in nursing home as the place of occurrence of the external cause; I11.0 Hypertensive heart disease with heart failure; I50.9 Heart failure, unspecified; J44.9 Chronic obstructive pulmonary disease, unspecified

== ENCOUNTER 2018-08-28 07:48 | Emergency (ER) | payer MEDICARE, BC ==
[~2018-08-28] VITALS: Ht 162.6 cm; Wt 86.4 kg
[2018-08-28 07:51] VITALS: Ht 162.6 cm; Wt 86.4 kg
[2018-08-28 08:32] LABS: BASOPHILS 0.4 % (0-2); EOSINOPHILS 4.1 % (0-7); HEMATOCRIT 36.8 % (36.0-48.0); HEMOGLOBIN 11.9 g/dL (12-16); IMMATURE GRANULOCYTES 0.3 % (0-5); LYMPHOCYTES 23.1 % (15-50); MCH 30.8 pg (26.0-34.0); MCHC 32.3 g/dL (31.0-37.0); MCV 95.3 fL (80.0-100.0); MEAN PLATELET VOLUME 10.9 fL (7.4-10.4); MONOCYTES 6.4 % (2-11); NEUTROPHILS 65.7 % (40-80); PLATELET COUNT 169 10x3/uL (130-400); RBC 3.86 10x6/uL (4.00-5.40); RDW 13.4 % (11.5-14.5); WBC 7.4 10x3/uL (4.8-10.8)
[2018-08-28 08:43] LABS: ALBUMIN 3.4 g/dL (3.4-5.0); ALKALINE PHOSPHATASE 40 U/L (46-116); ALT (SGPT) 28 U/L (10-68); CALC OSMOLALITY 287 mosm/kg (275-300); CALCIUM 8.6 mg/dL (8.5-10.1); CARBON DIOXIDE 38.2 mmol/L (21.0-32.0); CHLORIDE - SERUM 103 mmol/L (98-107); GLUCOSE 107 mg/dL (74-106); POTASSIUM - SERUM 3.9 mmol/L (3.5-5.1); SODIUM 144 mmol/L (136-145); UREA NITROGEN 14 mg/dL (7-18); eGFR NON AFRICAN AMERICAN 56 mL/min (90-120)
[2018-08-28 08:52] LABS: MAGNESIUM - SERUM 2.1 mg/dL (1.8-2.4); PRO BNP 570 pg/mL (0-450); TROPONIN-I < 0.017 ng/mL (0.000-0.060)
[2018-08-28 09:13] LABS: APPEARANCE CLEAR (CLEAR); BACTERIA FEW /hpf (NONE SEEN); BILIRUBIN NEGATIVE (NEGATIVE); COLOR YELLOW (YELLOW); EPITHELIAL CELLS 0-5 /hpf (0-5); GLUCOSE NEGATIVE (NEGATIVE); KETONE NEGATIVE (NEGATIVE); MUCUS <1+ /lpf (NONE SEEN); NITRITE NEGATIVE (NEGATIVE); PROTEIN 2+ mg/dL (NEGATIVE); UROBILINOGEN NORMAL (NORMAL); WHITE CELLS - URINE 0-5 /hpf (0-5)
[2018-08-28 10:22] VITALS: BP 129/76
== END 2018-08-28 10:26 | disposition home or self-care (01) ==
LOC: D.ER 07:48
PROVIDERS: Family Medicine
DX: S09.90XA Unspecified injury of head, initial encounter (principal); W18.30XA Fall on same level, unspecified, initial encounter; Y93.89 Activity, other specified; Y92.129 Unspecified place in nursing home as the place of occurrence of the external cause; J44.9 Chronic obstructive pulmonary disease, unspecified; F03.90 Unspecified dementia, unspecified severity, without behavioral disturbance, psychotic disturbance, mood disturbance, and anxiety

== ENCOUNTER 2018-09-02 10:14 | Emergency (ER) | payer MEDICARE, BC ==
[~2018-09-02] VITALS: Ht 162.6 cm; Wt 104.5 kg
[2018-09-02 10:20] VITALS: Ht 162.6 cm; Wt 104.5 kg
[2018-09-02 10:42] LABS: BASOPHILS 0.4 % (0-2); EOSINOPHILS 3.9 % (0-7); HEMATOCRIT 36.7 % (36.0-48.0); HEMOGLOBIN 12.1 g/dL (12-16); IMMATURE GRANULOCYTES 0.3 % (0-5); LYMPHOCYTES 22.3 % (15-50); MCH 31.1 pg (26.0-34.0); MCV 94.3 fL (80.0-100.0); MONOCYTES 7.9 % (2-11); NEUTROPHILS 65.2 % (40-80); PLATELET COUNT 195 10x3/uL (130-400); RBC 3.89 10x6/uL (4.00-5.40); RDW 13.2 % (11.5-14.5); WBC 6.7 10x3/uL (4.8-10.8)
[2018-09-02 11:00] LABS: ALBUMIN 3.4 g/dL (3.4-5.0); ANION GAP 6.6 mmol/L (8-16); BILIRUBIN - TOTAL 0.37 mg/dL (0.2-1.3); CALCIUM 8.9 mg/dL (8.5-10.1); CARBON DIOXIDE 38.3 mmol/L (21.0-32.0); CREATININE - SERUM 1.2 mg/dL (0.6-1.3); POTASSIUM - SERUM 3.9 mmol/L (3.5-5.1); PROTEIN - SERUM 7.3 g/dL (6.4-8.2)
[2018-09-02 11:14] LABS: APPEARANCE CLEAR (CLEAR); BILIRUBIN NEGATIVE (NEGATIVE); COLOR YELLOW (YELLOW); GLUCOSE NEGATIVE (NEGATIVE); KETONE NEGATIVE (NEGATIVE); NITRITE NEGATIVE (NEGATIVE); PROTEIN 2+ mg/dL (NEGATIVE); UROBILINOGEN NORMAL (NORMAL)
[2018-09-02 12:33] VITALS: BP 107/89
[2018-09-07] MEDS ORDERED: K-TAB10 MEQ (10:18)
[2018-09-07] MEDS ORDERED: FLUTICASONE PRO16 GM (10:18)
== END 2018-09-02 12:35 | disposition home or self-care (01) ==
LOC: D.ER 10:14
PROVIDERS: Emergency Medicine
DX: R11.10 Vomiting, unspecified (principal)

== ENCOUNTER 2018-09-06 13:03 | Emergency (ER) | payer MEDICARE, BC ==
[~2018-09-06] VITALS: Ht 162.6 cm; Wt 93.6 kg
[2018-09-06 13:09] VITALS: Ht 162.6 cm; Wt 93.6 kg
[2018-09-06] MEDS ORDERED: NORVASC2.5 MG PO (13:56)
[2018-09-06] MEDS ORDERED: LASIX40 MG PO (13:59)
[2018-09-06] MEDS ORDERED: LIDODERM 5 %1 PATCH TRANSDERM (14:00)
[2018-09-06] MEDS ORDERED: LASIX20 MG PO (14:00)
[2018-09-06 16:58] VITALS: BP 227/75
[2018-09-07] MEDS ORDERED: K-TAB10 MEQ (10:18)
[2018-09-07] MEDS ORDERED: FLUTICASONE PRO16 GM NASAL (10:18)
[2018-09-07] MEDS ORDERED: MIRALAX17 GM PO (10:18)
[2018-09-07] MEDS ORDERED: ULTRAM50 MG PO (10:19)
[2018-09-07] MEDS ORDERED: VITAMIN B-12500 MCG PO (10:19)
[2018-09-07] MEDS ORDERED: ZOFRAN ODT4 MG/UDTAB (10:21)
== END 2018-09-06 17:02 | disposition home or self-care (01) ==
LOC: D.ER 13:03
DX: M25.551 Pain in right hip (principal); I10 Essential (primary) hypertension; W05.0XXA Fall from non-moving wheelchair, initial encounter; Y93.89 Activity, other specified; Y92.019 Unspecified place in single-family (private) house as the place of occurrence of the external cause

== ENCOUNTER 2018-09-07 09:44 | Inpatient (IN) | payer MEDICARE, BC ==
[~2018-09-07] VITALS: Ht 162.6 cm; Wt 113.4 kg
[~2018-09-07 09:44] MED LIST changes: +LASIX20 MG PO; +LASIX40 MG PO; +LIDODERM 5 %1 PATCH TRANSDERM
[2018-09-07] MEDS ORDERED: MIRALAX17 GM PO (10:18)
[2018-09-07] MEDS ORDERED: K-TAB10 MEQ PO (10:18)
[2018-09-07] MEDS ORDERED: FLUTICASONE PRO16 GM NASAL (10:18)
[2018-09-07] MEDS ORDERED: VITAMIN B-12500 MCG PO (10:19)
[2018-09-07] MEDS ORDERED: ULTRAM50 MG PO (10:19)
[2018-09-07] MEDS ORDERED: ZOFRAN ODT4 MG/UDTAB (10:21)
[2018-09-07 10:55] LABS: BASOPHILS 0.2 % (0-2); EOSINOPHILS 3.6 % (0-7); HEMATOCRIT 38.7 % (36.0-48.0); IMMATURE GRANULOCYTES 0.2 % (0-5); LYMPHOCYTES 7.8 % (15-50); MCH 31.3 pg (26.0-34.0); MCHC 33.6 g/dL (31.0-37.0); MCV 93.3 fL (80.0-100.0); MONOCYTES 6.4 % (2-11); NEUTROPHILS 81.8 % (40-80); PLATELET COUNT 173 10x3/uL (130-400); RBC 4.15 10x6/uL (4.00-5.40); RDW 12.9 % (11.5-14.5); WBC 13.3 10x3/uL (4.8-10.8)
[2018-09-07 11:08] LABS: ALBUMIN 3.7 g/dL (3.4-5.0); ANION GAP 12.1 mmol/L (8-16); BILIRUBIN - TOTAL 0.99 mg/dL (0.2-1.3); CALCIUM 9.1 mg/dL (8.5-10.1); CARBON DIOXIDE 30.8 mmol/L (21.0-32.0); CREATININE - SERUM 1.1 mg/dL (0.6-1.3); POTASSIUM - SERUM 3.9 mmol/L (3.5-5.1); PROTEIN - SERUM 7.8 g/dL (6.4-8.2)
[2018-09-07 11:18] LABS: THYROID STIMULATING HORMONE 0.42 uIU/mL (0.36-3.74)
[2018-09-07 12:12] VITALS: BP 195/87
[2018-09-07 12:18] LABS: APPEARANCE CLEAR (CLEAR); BILIRUBIN NEGATIVE (NEGATIVE); COLOR STRAW (YELLOW); GLUCOSE NEGATIVE (NEGATIVE); KETONE SMALL mg/dL (NEGATIVE); NITRITE NEGATIVE (NEGATIVE); PROTEIN 3+ mg/dL (NEGATIVE); SPECIFIC GRAVITY 1.005 (1.005-1.020); UROBILINOGEN NORMAL (NORMAL)
[2018-09-07 12:20] LABS: BACTERIA FEW /hpf (NONE SEEN); EPITHELIAL CELLS RARE /hpf (0-5); MUCUS <1+ /lpf (NONE SEEN); RED CELLS - URINE 0-5 /hpf (0-5); WHITE CELLS - URINE 0-5 /hpf (0-5)
[2018-09-07 14:05] VITALS: BP 169/62
--- NOTE | 2018-09-07 14:09 | MORECARE ---
CASE MANAGEMENT DISCHARGE SUMMARY PATIENT: DREW CHAIREZ UNIT: [id number] ADM DATE: 09/07/18 AGE: 83 : 34 SEX: F ROOM/BED: D.E10 AUTHOR: NABEEL BROCK PHYSICIAN: REFERRING PHYSICIAN: FIGUEROA EMERSON MD DATE OF SERVICE: 09/07/18 Discharge Plan Patient Name: DREW CHAIREZ Facility: [facility]:[place] : 1935 Planned Disposition: Anticipated Discharge Date: Discharge Date: Expected LOS: Initial Reviewer: [email or web address] Initial Review Date: 09/07/2018 Generated: 09/07/18 3:09 pm Patient Name: DREW CHAIREZ Page [phone] at 1409 All edits/amendments must be made on the electronic document DICTATION DATE: 09/07/181408 INVENTORY REPRESENTATIVE: OSCAR 09/07/18 1409 RPT#: [id number] DC DATE: STATUS: ADM IN [facility] [address] [place] [address] END OF REPORT
--- NOTE | 2018-09-07 14:27 | NUR ---
REPORT TO HUGO TOWNSEND ON MED/SURG. WILL PREPARE TO TRANSFER
[2018-09-07 16:58] VITALS: BP 176/75
[2018-09-07 17:14] VITALS: BP 176/75; BMI 43.0
--- NOTE | 2018-09-07 18:45 | NUR ---
PATIENT AWAKE NOW AND TALKING. WAS ASLEEP AND WOULDNT TAKE MEDS OR SWALLOW. WILL CONTINUE TO MONITOR. REPORT GIVEN TO SUZETTE CARD. PATIENT IV INTACT. CALL LIGHT WITHIN REACH. ACKERMAN INTACT.
--- NOTE | 2018-09-07 19:15 | NUR ---
RECEIVED CARE FROM DAY NURSE. LYING IN BED LOOKING AROUND. PT IS NOT VERBALLY RESPONDING TO QUESTIONS BUT WILL LOOK AT NURSE WHEN BEING SPOKEN TO. IV TO RIGHT FA INFUSING PER ORDER. CALL LIGHT AT SIDE. ACKERMAN TO GRAVITY.
--- NOTE | 2018-09-07 19:15 | NUR ---
RECEIVED CARE FROM DAY NURSE. LYING IN BED WITH EYES CLOSED. RESP EVEN AND UNLABORED. CALL LIGHT AT SIDE. IV INFUSING PER ORDER TO LEFT FA.
[2018-09-07 20:00] VITALS: BP 165/69
[2018-09-08] VITALS (7 sets, daily range): BP systolic 159–199; BP diastolic 65–116; Ht 162.6 cm; Wt 113.4 kg
--- NOTE | 2018-09-08 02:14 | NUR ---
I have reviewed this patient and I concur with the Shift Assessment completed by the Licensed Practical Nurse today this shift.
--- NOTE | 2018-09-08 05:49 | NUR ---
SPOKE WITH DR ELLIS ABOUT BP 220/110. NEW ORDER RECEIVED AND DR ELLIS CAME OVER AND PHYSICALLY EXAMINED PATIENT.
--- NOTE | 2018-09-08 08:00 | NUR ---
MORNING ASSESSMENT COMPLETE. SEE ASSESSMENT FLOWSHEET FOR FURTHER DETIALS. PT LYING IN BED. DENIES NEEDS AT THIS TIME. NOT TALKING MUCH. JUST SAYING "YES" OR "NO" AT THIS TIME. CL IN REACH
--- NOTE | 2018-09-08 15:43 | NUR ---
R FA PIV INFILTRATED. RESITED TO L INNER FA 22G X1 ATTEMPT. PT TOLERATED WELL.
[2018-09-09 00:48] VITALS: BP 134/71
[2018-09-09 04:50] VITALS: BP 128/80
[2018-09-09 05:28] LABS: BASOPHILS 0.1 % (0-2); HEMOGLOBIN 13.1 g/dL (12-16); IMMATURE GRANULOCYTES 0.5 % (0-5); LYMPHOCYTES 6.9 % (15-50); MCH 30.8 pg (26.0-34.0); MCHC 32.8 g/dL (31.0-37.0); MCV 94.1 fL (80.0-100.0); MEAN PLATELET VOLUME 11.4 fL (7.4-10.4); MONOCYTES 6.9 % (2-11); NEUTROPHILS 84.6 % (40-80); PLATELET COUNT 163 10x3/uL (130-400); RBC 4.25 10x6/uL (4.00-5.40); RDW 13.4 % (11.5-14.5); WBC 14.9 10x3/uL (4.8-10.8)
[2018-09-09 05:49] LABS: ALBUMIN 2.9 g/dL (3.4-5.0); BILIRUBIN - TOTAL 0.84 mg/dL (0.2-1.3); CALCIUM 9.1 mg/dL (8.5-10.1); PROTEIN - SERUM 7.3 g/dL (6.4-8.2)
[2018-09-09 05:54] LABS: ANION GAP 11.5 mmol/L (8-16); CREATININE - SERUM 0.8 mg/dL (0.6-1.3); POTASSIUM - SERUM 4.5 mmol/L (3.5-5.1)
--- NOTE | 2018-09-09 08:30 | NUR ---
MORNING ASSESSMENT COMPELTE. SEE ASSESSMENT FLOWSHEET FOR FURTHER DETAILS. PT LYING IN BED. CONFUSION NOTED. DENIES NEEDS AT THIS TIME. CL IN REACH. SIDE RAILS UP X3 FOR PATIENT SAEFTY. BED IN LOWEST POSITION
[2018-09-09 09:45] VITALS: BP 211/81
[2018-09-09 13:24] VITALS: BP 175/70
--- NOTE | 2018-09-09 14:36 | NUR ---
REHAB PRESCREENING Rehab referral received and chart reveiwed. This patient certainly has a rehab diagnosis. PT documents that this patient is very lethargic and only completed bed mobility. Rehab will continue to follow for improvement with therapy as she must be willing and able to participate in the required 3 hours of therapy in order to meet admission criteria. Thank you for this referral! Mini Sanchez, TUBE OPERATOR Rehab PD
[2018-09-09 18:08] VITALS: BP 200/76
--- NOTE | 2018-09-09 18:40 | NUR ---
PT LYING IN BED ASLEEP. NO SIGNS OF DISTRESS NOTED.
--- NOTE | 2018-09-09 19:15 | NUR ---
RECEIVED CARE FROM DAY NURSE. LYING IN BED WITH EYES CLOSED. RESP EVEN AND UNALBORED. CALL LIGHT AT SIDE. IV INFUSING PER ORDER TO LEFT FA. ACKERMAN TO GRAVITY.
[2018-09-09 20:00] VITALS: BP 153/72
[2018-09-10] VITALS: BP 149/68
[2018-09-10 03:00] VITALS: BP 139/65
[2018-09-10 06:10] LABS: BASOPHILS 0.2 % (0-2); EOSINOPHILS 4.3 % (0-7); HEMOGLOBIN 12.1 g/dL (12-16); IMMATURE GRANULOCYTES 0.2 % (0-5); LYMPHOCYTES 12.6 % (15-50); MCHC 32.7 g/dL (31.0-37.0); MCV 94.9 fL (80.0-100.0); MEAN PLATELET VOLUME 11.7 fL (7.4-10.4); MONOCYTES 11.6 % (2-11); NEUTROPHILS 71.1 % (40-80); PLATELET COUNT 193 10x3/uL (130-400); RDW 13.7 % (11.5-14.5)
[2018-09-10 06:25] LABS: WBC 10.8 10x3/uL (4.8-10.8)
[2018-09-10 06:47] LABS: ALBUMIN 2.8 g/dL (3.4-5.0); ANION GAP 13.9 mmol/L (8-16); BILIRUBIN - TOTAL 0.42 mg/dL (0.2-1.3); CALCIUM 8.5 mg/dL (8.5-10.1); CARBON DIOXIDE 27.2 mmol/L (21.0-32.0); CREATININE - SERUM 0.8 mg/dL (0.6-1.3); POTASSIUM - SERUM 4.1 mmol/L (3.5-5.1); PROTEIN - SERUM 6.1 g/dL (6.4-8.2)
[2018-09-10 08:00] VITALS: BP 158/74
--- NOTE | 2018-09-10 08:40 | NUR ---
PT AWAKE, RESTING QUIETLY IN BED. ORIENTED TO PERSON ONLY. NO ACUTE DISTRESS. NO S/S OF PAIN AT THIS TIME. O2 @ 2L NC IN PLACE. IV TO LEFT FOREARM WITH NS @ 10ML/HR INFUSING VIA PUMP. SITE WITHOUT REDNESS OR EDEMA. SPEAKS ONLY WHEN SPOKEN DIRECTLY TO. CL WITHIN REACH. ENCOURAGED TO CALL WITH NEEDS. CONTINUE POC
--- NOTE | 2018-09-10 11:31 | NUR ---
Reviewed patient's chart this morning again for the ARU. She still has a OT and ST eval ordered but pending. She also has a psych eval pending. Nurses notes indicate she is confused, disoriented and lethargic. The ER notes from 09/06/18 immediately after the fall from her W/C at [facility] indicate she was alert and oriented. The day of admission 09/07/18 she returned to the ER for AMS. There are concerns for a CHI eventhough her CT Head was negative for acute findings. Discussed with the CM Helena Menendez. Chasity Winston RN Clinical Liaison, Rehab
[2018-09-10 12:00] VITALS: BP 164/66
--- NOTE | 2018-09-10 15:50 | NUR ---
OT NOTE: PT COMPLETED BED MOB AXS WITH KELLEY Hamilton. PT COMPLETED SIMPLE HYGIENE TASKS WITH KELLEY Hamilton. THANK YOU, HARPAL CABALLERO
[2018-09-10 17:00] VITALS: BP 172/81
--- NOTE | 2018-09-10 20:30 | NUR ---
PT RESTING IN BED. EYES OPEN WITH SOME CONFUSION. NO SIGNS OF DISTRESS. BREATHING EVEN AND UNLABORED. IV SITE LT FA DRESSING CLEAN DRY AND INTACT. NO SIGNS OF INFECTION. BOWEL SOUNDS ACTIVE. ACKERMAN IN PLACE. CLEAN DRY AND INTACT. WILL CONTINUE PLAN OF CARE. CALL LIGHT IN REACH. BED LOWERED AND LOCKED. BED RAILS UP X3. BED ALARM ON.
[2018-09-10 21:16] VITALS: BP 138/60
[2018-09-11] VITALS (7 sets, daily range): BP systolic 170–203; BP diastolic 70–96
[2018-09-11 07:16] LABS: ALBUMIN 2.8 g/dL (3.4-5.0); ANION GAP 11.6 mmol/L (8-16); BILIRUBIN - TOTAL 0.45 mg/dL (0.2-1.3); CALCIUM 8.8 mg/dL (8.5-10.1); CARBON DIOXIDE 31.1 mmol/L (21.0-32.0); CREATININE - SERUM 0.8 mg/dL (0.6-1.3); POTASSIUM - SERUM 3.7 mmol/L (3.5-5.1); PROTEIN - SERUM 6.7 g/dL (6.4-8.2)
[2018-09-11 07:50] LABS: BASOPHILS 0.4 % (0-2); EOSINOPHILS 6.3 % (0-7); HEMATOCRIT 37.9 % (36.0-48.0); HEMOGLOBIN 12.5 g/dL (12-16); IMMATURE GRANULOCYTES 0.1 % (0-5); LYMPHOCYTES 15.4 % (15-50); MCH 30.9 pg (26.0-34.0); MCV 93.6 fL (80.0-100.0); MEAN PLATELET VOLUME 11.2 fL (7.4-10.4); MONOCYTES 10.2 % (2-11); NEUTROPHILS 67.6 % (40-80); PLATELET COUNT 230 10x3/uL (130-400); RBC 4.05 10x6/uL (4.00-5.40); RDW 13.2 % (11.5-14.5)
[2018-09-11 07:51] LABS: WBC 7.3 10x3/uL (4.8-10.8)
--- NOTE | 2018-09-11 12:05 | NUR ---
NUTRITION F/U CHART REVIEWED, PT VISIT. [facility] SOFT DIET WITH THIN LIQUIDS. PT STATES SHE IS "EATING A LITTLE." WILL CONTINUE TO PROVIDE CURRENT DIET, MONITOR PO INTAKE. RD FOLLOWING
--- NOTE | 2018-09-11 13:26 | NUR ---
PIV REMOVED TIP INTACT. ASSISTED PATIENT TO BSC AND BACK TO BED.
--- NOTE | 2018-09-11 14:51 | NUR ---
LEFT FOREARM PIV INFILTRATED. REMOVED, TIP INTACT.
--- NOTE | 2018-09-11 15:27 | NUR ---
OT NOTE: PT WAS ON BED ANNE.. STATED THAT SHE THOUGHT SHE WAS FINISHED. PERFORMED BED MOB INCLUDING ROLLING SIDE TO SIDE WITH MAX ASSIST. PROVIDED PERINEAL CARE, PT WAS UNABLE TO PERFORM. PROVIDED PT WITH ANNE OF WATER, HOWEVER, DUE TO CONFUSION, SHE REQUIRED FREQ CUES TO STAY ON TASK AND ASSIST FOR THOROUGH CLEANING OF UPPER AND LOWER BODY. ABLE TO WASH FACE WITH SET UP; ABLE TO BRUSH DULCE WITH MIN ASSIST; MOD ASSIST TO CARINA GOWN; TOTAL ASSIST TO CARINA SOCKS. VIKRAM WETZEL, OTR/L
--- NOTE | 2018-09-11 15:29 | NUR ---
OT NOTE: PT COMPLETED BED MOB WITH MAX A. PT COMPLETED COMPLETED HYGIENE TASKS WITH MOD/MAX A. PT COMPLETED BUE AROM AXS. THANK YOU, HARPAL CABALLERO
--- NOTE | 2018-09-11 15:35 | NUR ---
PIV RESITED TO LEFT HAND. 22G. 1 ATTEMPT. PATIENT TOLERATED WELL.
--- NOTE | 2018-09-11 15:58 | MORECARE ---
CASE MANAGEMENT DISCHARGE SUMMARY PATIENT: DREW CHAIREZ UNIT: [id number] ADM DATE: 09/07/18 AGE: 83 : 34 SEX: F ROOM/BED: D.2216 AUTHOR: NABEEL BROCK PHYSICIAN: REFERRING PHYSICIAN: FIGUEROA EMERSON MD DATE OF SERVICE: 09/11/18 Discharge Plan Patient Name: DREW CHAIREZ Facility: [facility]:[place] : 1935 Planned Disposition: Snf Facility Anticipated Discharge Date: Discharge Date: Expected LOS: Initial Reviewer: [email or web address] Initial Review Date: 09/07/2018 Generated: 09/11/18 4:58 pm Comments DCP- Discharge Planning Updated by [id number]: Bria Menendez on 09/11/18 2:[address] Patient Name: DREW CHAIREZ Admission Status: ER Accout number: [id number] Admission Date: 09-07-2018 : 1935 Admission Diagnosis: Attending: FIGUEROA EMERSON Current LOS: 4 Anticipated DC Date: Planned Disposition: Snf Facility Primary Insurance: MEDICARE A & B Discharge Planning Comments: CM met with patient to assess discharge planning needs. Patient is pleasantly confused. She know she has a Son, name Leonora who lives in [place]. She could not tell me her birthday, where she lives, where she was at or who the president is. From past ER records she lives at [facility]. She will need some sort of rehab when she is ready to be discharged. She has been in the ER 4 times since 08/28/18. CM will attempt to call son or [facility] to get information. CM to follow and assist as needed [employer] General Supervisor: Bria Menendez DCPIA - Discharge Planning Initial Assessment Updated by [id number]: Bria Menendez on 09/11/18 3:50 pm * Is the patient Alert and Oriented? Yes * PCP DAILY * Preadmission Environment Assisted Living * Facility Name [facility]? * ADLs Partial Dependent * Partial ADLs (Assistance needed) Ambulation Medication Management * List name and contact numbers for known caregivers / representatives who currently or will assist patient after discharge: LEONORA (SON) [phone] * Verbal permission to speak to the caregivers and representatives has been obtained from the patient. Yes * Community resources currently utilized Assisted Living * Please name any agencies selected above. [facility] * Additional services required to return to the preadmission environment? Yes * Can the patient safely return to the preadmission environment? No * Has this patient been hospitalized within the prior 30 days at any hospital? No Last DP export: 09/07/18 1:09 p Patient Name: DREW CHAIREZ Page [id number] at 1558 All edits/amendments must be made on the electronic document DICTATION DATE: 09/11/181557 WEDDING CONSULTANT: OSCAR 09/11/181557 RPT#: [id number] DC DATE: STATUS: ADM IN [facility] [address] [place] [address] END OF REPORT
--- NOTE | 2018-09-11 16:40 | NUR ---
Rehab Note- Continue to follow the patient at this time. Receiveing OT, ST, and PT. Thank you for this referral! Yamini Campbell RN CLinical Liaison, [facility] Rehab
--- NOTE | 2018-09-11 20:20 | NUR ---
PT RESTING IN BED. ALERT WITH SOME CONFUSION. NO SIGNS OF DISTRESS. BREATHING EVEN AND UNLABORED. IV SITE LT HAND DRESSING CLEAN DRY AND INTACT. NO SIGNS OF INFECTION. TELE MONTIOR ON 65 NORMAL SINUS. 3LO2 NASAL CANNULA. BOWEL SOUNDS ACTIVE. SOME LOWER LEG SWELLING PRESENT. ACKERMAN IN PLACE CLEAN DRY AND INTACT. NO SIGNS OF INFECTION. MATTHIAS CONTINUE PLAN OF CARE. CALL LIGHT IN REACH. BED ALARM ON. BED LOWERED AND LOCKED. BED RAILS UP X2.
[2018-09-12 00:54] VITALS: BP 175/90
[2018-09-12 05:01] VITALS: BP 164/84
--- NOTE | 2018-09-12 05:28 | NUR ---
PT IN BED IN LOW FOWLERS POSIITON. RESPIRATIONS EVEN AND UNLABORED NO VISUAL CUES OF DISTRESS NOTED. DENIES ANY OTHER NEEDS AT THIS TIME. BED LOW, SIDE RAILS UP X2. CALL LIGHTI IN [facility]. WILL CONTINUE TO MONITOR.
[2018-09-12 06:36] LABS: BASOPHILS 0.3 % (0-2); EOSINOPHILS 4.1 % (0-7); HEMATOCRIT 37.1 % (36.0-48.0); HEMOGLOBIN 12.6 g/dL (12-16); IMMATURE GRANULOCYTES 0.2 % (0-5); LYMPHOCYTES 15.3 % (15-50); MEAN PLATELET VOLUME 11.3 fL (7.4-10.4); MONOCYTES 11.6 % (2-11); NEUTROPHILS 68.5 % (40-80); PLATELET COUNT 231 10x3/uL (130-400); RBC 4.07 10x6/uL (4.00-5.40); RDW 12.7 % (11.5-14.5); WBC 8.9 10x3/uL (4.8-10.8)
[2018-09-12 07:35] LABS: MCV 91.2 fL (80.0-100.0)
[2018-09-12 07:54] LABS: ALBUMIN 2.9 g/dL (3.4-5.0); ALKALINE PHOSPHATASE 42 U/L (46-116); ALT (SGPT) 32 U/L (10-68); BILIRUBIN - TOTAL 0.53 mg/dL (0.2-1.3); CALC OSMOLALITY 282 mosm/kg (275-300); CALCIUM 8.4 mg/dL (8.5-10.1); CARBON DIOXIDE 31.2 mmol/L (21.0-32.0); CHLORIDE - SERUM 101 mmol/L (98-107); CREATININE - SERUM 0.7 mg/dL (0.6-1.3); GLUCOSE 119 mg/dL (74-106); POTASSIUM - SERUM 3.5 mmol/L (3.5-5.1); PROTEIN - SERUM 6.3 g/dL (6.4-8.2); SODIUM 141 mmol/L (136-145); UREA NITROGEN 14 mg/dL (7-18); eGFR NON AFRICAN AMERICAN 84 mL/min (90-120)
[2018-09-12 08:18] VITALS: BP 179/89
--- NOTE | 2018-09-12 12:13 | NUR ---
I have reviewed this patient and I concur with the Shift Assessment completed by the Licensed Practical Nurse today this shift.
[2018-09-12 12:19] VITALS: BP 181/81
--- NOTE | 2018-09-12 12:30 | NUR ---
Rehab Note- Continue to follow at this time. THe patient still has a pending GeriPsych Eval pending. Spoke with MARIANELA Malik. Spoke with Bing, with [facility], concerning the patient and her PLOF. Will plan to accept the patient to [facility] when ready for discharge from the acute hospital. Thank you for this referral! Yamini Campbell RN CLinical Liaison, [facility] Rehab
--- NOTE | 2018-09-12 13:57 | NUR ---
OT NOTE: PT NOT DOING WELL TODAY. REFUSED SEVERAL ATTEMPTS OF FEEDING. PT ABLE TO WASH FACE AND HANDS WITH WASHCLOTH BUT THAT IS ALL. REFUSED TO PERFORM ANY OTHER BATHING OR GROOMING TASKS. REFUSED TO SIT UP ON EDGE OF BED. REMAINS CONFUSED; COGNITIVE TASKS AND RE ORIENTATION ACT PERFORMED. VIKRAM WETZEL, OTR/L
--- NOTE | 2018-09-12 15:10 | NUR ---
SCD'S AND NONSKID SOCKS PLACED ON PATIENT. MACHINE TURNED ON AND WORKING.
--- NOTE | 2018-09-12 16:31 | NUR ---
OT NOTE: PT COMPLETED UE AAROM FOR INCREASED I WTIH BED MOB. PT COMPLETED BED MOB TASKS WITH MOD/MAX A. PT COMPLETED SIMPLE GROOMING TASK WITH SET UP. PT REQUIRED EXTENSIVE VERBAL CUES WITH MULTI STEP GROOMING TASKS. THANK YOU, HARPAL CABALLERO
[2018-09-12 17:09] VITALS: BP 178/81
--- NOTE | 2018-09-12 20:00 | NUR ---
ASSESSMENT PER FLOWSHEET. IV PATENT LEEFT HAND OF NS AT 10CC'S/HR. SITE CLEAR. O2 AT 2L/M PER NC. ACKERMAN TO BEDSIDE DRAINAGE WITH YELLOW URINE. SCD'S ON. SR UP X2 CALL LIGHT WITHIN REACH TELM. SHOWS SR W/HR 67.
[2018-09-12 20:10] VITALS: BP 162/68
--- NOTE | 2018-09-12 21:00 | NUR ---
MEDS GIVEN PER MAR. TOL. BELTRAN
--- NOTE | 2018-09-13 00:28 | NUR ---
EYES CLOSED RESPIRATIONS WITH EASE AND UNLABORED.
[2018-09-13 04:45] VITALS: BP 168/76
--- NOTE | 2018-09-13 07:20 | NUR ---
PT RESTING IN BED. PT C/O PAIN, GAVE TRAMADOL. PT ALERT. PT HAS ACKERMAN. PT ON FALL PRECAUTIONS. PT HAS SCDS. PT ON 2L O2, NC. IV TO LEFT HAND, NS INFUSING @ 10ML/HR. SITE PATENT WITHOUT REDNESS OR SWELLING. PT ON TELEMETRY 75 SR WITH PVC'S. PT DENIES ANYTHING FURTHER AT THIS TIME. CALL LIGHT IN REACH. WILL CONTINUE TO MONITOR.
[2018-09-13 09:23] VITALS: BP 147/75
--- NOTE | 2018-09-13 11:16 | NUR ---
Rehab Note- Continue to follow at this time. The patient did not do well with therapy this AM and also vomited large amount of emesis. WIll continue to follow at this time. Yamini Campbell RN Clinical Liaison, [facility] Rehab
[2018-09-13] MEDS ORDERED: LISINOPRIL10 MG PO (11:41)
[2018-09-13] MEDS ORDERED: MUCINEX600 MG PO (11:42)
[2018-09-13] MEDS ORDERED: TESSALON PERLE100 MG PO (11:42)
--- NOTE | 2018-09-13 12:10 | MORECARE ---
CASE MANAGEMENT DISCHARGE SUMMARY PATIENT: DREW CHAIREZ UNIT: [id number] ADM DATE: 09/07/18 AGE: 83 : 34 SEX: F ROOM/BED: D.2216 AUTHOR: NABEEL BROCK PHYSICIAN: REFERRING PHYSICIAN: FIGUEROA EMERSON MD DATE OF SERVICE: 09/13/18 Discharge Plan Patient Name: DREW CHAIREZ Facility: [facility]:[place] : 1935 Planned Disposition: Care Home Facility Anticipated Discharge Date: Discharge Date: Expected LOS: Initial Reviewer: [email or web address] Initial Review Date: 09/07/2018 Generated: 09/13/18 1:09 pm Comments DCP- Discharge Planning Updated by [id number]: Bria Menendez on 09/13/18 11:[address] Patient will be discharging to inpatient rehab today. IMM served and explained. I spoke with her son too and he feels like this is a great discharge plan. Patient is more clear minded today. CM will continue to follow and assist with DC planning DCP- Discharge Planning Updated by [id number]: Bria Menendez on 09/11/18 2:[address] Patient Name: DREW CHAIREZ Admission Status: ER Accout number: [id number] Admission Date: 09-07-2018 : 1935 Admission Diagnosis: Attending: FIGUEROA EMERSON Current LOS: 4 Anticipated DC Date: Planned Disposition: Care Home Facility Primary Insurance: MEDICARE A & B Discharge Planning Comments: CM met with patient to assess discharge planning needs. Patient is pleasantly confused. She know she has a Son, name Leonora who lives in [place]. She could not tell me her birthday, where she lives, where she was at or who the president is. From past ER records she lives at [facility]. She will need some sort of rehab when she is ready to be discharged. She has been in the ER 4 times since 08/28/18. CM will attempt to call son or [facility] to get information. CM to follow and assist as needed Talent Partner: Bria Menendez DCPIA - Discharge Planning Initial Assessment Updated by [id number]: Bria Menendez on 09/11/18 3:50 pm * Is the patient Alert and Oriented? Yes * PCP DAILY * Preadmission Environment Assisted Living * Facility Name [facility]? * ADLs Partial Dependent * Partial ADLs (Assistance needed) Ambulation Medication Management * List name and contact numbers for known caregivers / representatives who currently or will assist patient after discharge: LEONORA (SON) [phone] * Verbal permission to speak to the caregivers and representatives has been obtained from the patient. Yes * Community resources currently utilized Assisted Living * Please name any agencies selected above. [facility] * Additional services required to return to the preadmission environment? Yes * Can the patient safely return to the preadmission environment? No * Has this patient been hospitalized within the prior 30 days at any hospital? No Coverage Notice Reviewer: [id number] - Bria Menendez Notice Issued Date-Time: 09/13/2018 12:00 Notice Type: IM Discharge Notice Notice Delivered To: Patient Relationship to Patient: Mushroom Cutter Name: Delivery Method: HAND - Hand Delivered Bisi Days: Prior Verbal Notification: Recipient Understood Notice: Yes Recipient Signature: Yes Med Rec Note Co-signed by Attending: Coverage Notice Comment: Last DP export: 09/11/18 2:58 p Patient Name: DREW CHAIREZ Page [id number] at 1210 All edits/amendments must be made on the electronic document DICTATION DATE: 09/13/181208 INJECTION MOLD TECHNICIAN: OSCAR 09/13/18 120 RPT#: [id number] DC DATE: STATUS: ADM IN [facility] [address] [place] [address] END OF REPORT
[2018-09-13 12:22] VITALS: BP 147/63
--- NOTE | 2018-09-13 14:08 | NUR ---
TRIED TO CALL REPORT ON PT TO REHAB. THEY TOLD ME THEY WERE NOT READY TO TAKE REPORT YET.
--- NOTE | 2018-09-13 14:34 | NUR ---
CALLED REPORT TO REHAB, TALKED TO
--- NOTE | 2018-09-13 14:44 | NUR ---
OT NOTE: PT INITIALLY REFUSED TO MOVE IN OR OUT OF BED. RE DIRECTED AND ASSISTED PT TO EDGE OF BED WITH MAX ASSIST. MAX ASSIST FOR SITTING BALANCE INITITALLY, HOWEVER, AFTER APPROX 3 MIN, PT ABLE TO MAINTAIN STATIC SITTING. NUMEORUS ATTEMPTS TO STAND WITH USE OF WALKER, HOWEVER, PT DID NOT HELP AT ALL. UNABLE TO GET PT TO STANDING. BACK TO BED WITH MAX ASSIST X 2; REPOSITIONED AND THEN PT VOMMITED SIGNIFICANT AMOUNT. RECEIVED ASSIST FROM EVENTS ASSISTANT TO GET PT INITIALLY CLEANED. EVENTS ASSISTANT COMPLETED INCLUDING FULL LINEN CHANGE. VIKRAM WETZEL, OTR/L
--- NOTE | 2018-09-13 14:56 | NUR ---
PT IS BEING TRANSFERRED TO REHAB PER BED WITH VALUABLES IN PLACE. YELLOW COLORED RING WITH CLEAR STONE, YELLOW COLORED BRACLET WITH CLEAR STONES, YELLOW COLORED BRACLET WITH WHITE STONES (OPALS), SOLID YELLOW BRACLET, AND LS&S YELLOW COLORED WATCH. TOP SET OF DENTURES IN PLACE.
--- NOTE | 2018-09-13 15:16 | NUR ---
OT NOTE: PT REQUIRED MAX A WITH HYGIENE TASKS . PT UANBLE TO ROLL SIDE TO SIDE WITHOUT EXTENSIVE ASSIST. THANK YOU, HARPAL CABALLERO
--- NOTE | 2018-09-13 15:18 | NUR ---
PT DISCHARGED TO REHAB. IV DISCONTINUED, CATHETER TIP INTACT. NO C/O PAIN. NO S/S OF ACUTE DISTRESS NOTED. PT WEARING THIN SILVER COLORED NECKLACE WITH WHITE STONES. WENT OVER DISCHARGE INSTRUCTIONS WITH PT, PT DENIES ANY CONCERNS AT THIS TIME. TAKEN TO REHAB VIA BED ACCOMPANIED BY HOSPITAL STAFF.
--- NOTE | 2018-09-14 14:13 | CN ---
PATIENT NAME:DREW CHAIREZ MEDICAL RECORD: [id number] : [birth year] LOCATION:D[facility] [place] ADMIT DATE: 09/07/18 ACCOUNT: [id number] CONSULTING PHYSICIAN: SHAQUILLE JACINTO MD REFERRING PHYSICIAN: FIGUEROA EMERSON MD DATE OF CONSULTATION: 09/12/2018 PSYCHIATRIC CONSULTATION IDENTIFYING DATA: The patient is 83 years old and she is admitted to the hospital on a voluntary basis. CHIEF COMPLAINT: None. HISTORY OF PRESENT ILLNESS: The patient currently is admitted to the hospital because of number of chronic and acute medical problems. She has been somewhat confused and although medically stable now, she still has a significant amount of confusion. She is very polite and cooperative. Denies neurovegetative depressive symptoms, overt psychotic symptoms; and from what I have reviewed in the record, there is not any evidence of agitation or dangerousness. Unfortunately, she does have bronchitis, fever that is of uncertain etiology along with chronic kidney disease, metabolic encephalopathy that looks like it is either resolved or partially resolved, macular degeneration, obstructive sleep apnea, emphysema, COPD, gastroesophageal reflux disease, congestive heart failure, and hypertension. The patient has a known history of dementia. MENTAL STATUS EXAMINATION: The patient is awake; alert; and oriented to person, place, and somewhat to time and situation. Her mood is euthymic. Her affect is appropriate. Memory, concentration, and abstraction abilities are at least moderately impaired. She denies that she would seek to harm herself or others as well as psychotic symptoms. ASSESSMENT: Senile dementia of the Alzheimer's type. PLAN: The patient is currently taking a large number of medicines. She is not taking anything that would be overtly identifiable as worsening her cognition. She is taking an antidepressant, which is fine. I do not see that she is on a cholinesterase inhibitor and I would recommend that. Certainly, consideration should be given to her social situation. I do believe that she needs 43-iqem-v-day supervision, what I do not know based on just this consultation is what environment would be the least restrictive that could provide that. TRANSINT:[id number] Voice Confirmation ID: [id number] DOCUMENT ID: [id number] SHAQUILLE JACINTO MD at 1413 CC: [id number] DICTATION DATE: 09/12/18 1706 [place] LAP MACHINE TENDER: 09/13/18 0018 DIS IN 09/13/18 [facility] [address] [place] [address]
== END 2018-09-13 15:20 | DRG 190 ==
LOC: D.ER 09:44 → D.EDHOLD 13:22 → D.MS 13:22
PROVIDERS: Emergency Medicine; ADMIT Family Medicine; ATTEND Family Medicine
DX: J47.9 Bronchiectasis, uncomplicated (principal); G93.41 Metabolic encephalopathy; I50.32 Chronic diastolic (congestive) heart failure; I13.0 Hypertensive heart and chronic kidney disease with heart failure and stage 1 through stage 4 chronic kidney disease, or unspecified chronic kidney disease; I11.0 Hypertensive heart disease with heart failure; J44.9 Chronic obstructive pulmonary disease, unspecified; E66.1 Drug-induced obesity; F41.8 Other specified anxiety disorders; N18.9 Chronic kidney disease, unspecified

== ENCOUNTER 2018-09-13 15:10 | Inpatient (IN) | payer MEDICARE, BC ==
[~2018-09-13] VITALS: Ht 162.6 cm; Wt 83.9 kg
[~2018-09-13 15:10] MED LIST changes: +FLUTICASONE PRO16 GM NASAL; +LISINOPRIL10 MG PO; +VITAMIN B-12500 MCG PO; +ZOFRAN ODT4 MG/UDTAB
--- NOTE | 2018-09-13 15:35 | NUR ---
PATIENT ADMITTED FROM ROOM 2216, BROUGHT DOWN TO REHAB BY STAFF. PATIENT IS ALERT. PATIENT IS ORIENT TO SELF ONLY. DIAG: ACUTE METABOLIC ENCEPHALOPATHY.
[2018-09-13 18:26] VITALS: BP 160/66; BMI 31.8
--- NOTE | 2018-09-13 19:21 | NUR ---
AWAKE AND RESTING IN BED. NOTED CONFUSED TO PLACE AND SITUATION. O2/2L ON PER NASAL CANNULA. NO DISTRESS NOTED. CALL LIGHT IN REACH.
[2018-09-13 19:44] VITALS: BP 160/66
--- NOTE | 2018-09-14 01:36 | NUR ---
RESTING IN BED WITH EYES CLOSED AND RESPIRATIONS UNLABORED. NO DISTRESS NOTED.
--- NOTE | 2018-09-14 05:30 | NUR ---
QUIET HOURS. RESTING IN BED WITH NO DISTRESS NOTED. CONDITION UNCHANGED THIS SHIFT. CALL LIGHT IN REACH.
[2018-09-14 07:57] VITALS: BP 145/67
--- NOTE | 2018-09-14 08:00 | NUR ---
PT RESTING IN BED WITH EYES OPEN CALL LIGHT IN REACH NO PROBLEMS WILL MONITER
[2018-09-14 13:25] VITALS: Ht 162.6 cm; Wt 83.9 kg
--- NOTE | 2018-09-14 18:44 | NUR ---
PT RESTING IN BED WITH EYES OPEN CALL LIGHT IN REACH NO PROBLEMS WILL MONITER
--- NOTE | 2018-09-14 18:46 | NUR ---
PT RESTING IN BED WITH EYES OPEN CALL LIGHT IN REACH WILL MONITER
--- NOTE | 2018-09-14 19:14 | NUR ---
PATIENT IS RESTING IN BED. REQUEST FOR LOTION. NO OTHER NEEDS AT THIS TIME. BED IS DOWN LOW WITH SIDE RAILS UP X2. BED ALARM ACTIVATED. CL IN REACH.
[2018-09-14 20:42] VITALS: BP 136/58
--- NOTE | 2018-09-15 | NUR ---
PATIENT IS SLEEPING. BED IS DOWN LOW WITH SIDE RAILS UP X2. CALL LIGHT IS IN REACH.
--- NOTE | 2018-09-15 04:00 | NUR ---
PATIENT IS SLEEPING. BED IS DOWN LOW WITH SIDE RAILS UP X2 AND CL IS IN REACH.
--- NOTE | 2018-09-15 08:00 | NUR ---
PATIENT SITTING UP IN BED TO EAT BREAKFAST. ALERT. CONFUSION NOTED. BED ALARM ON. CALL LIGTH WITHIN REACH. VOICES NO NEEDS. WILL CONTINUE WITH PLAN OF CARE
[2018-09-15 08:32] VITALS: BP 138/61
--- NOTE | 2018-09-15 09:22 | NUR ---
PATIENT IN REHAB ROOM. WORKING WITH PHYSICAL THERAPIST.
--- NOTE | 2018-09-15 12:51 | NUR ---
PATIENT HELPED OUT OF BED. MAX ASST FROM BED ONTO WHEELCHAIR
--- NOTE | 2018-09-15 17:35 | NUR ---
700CC OF DARK URINE EMPTYED OUT OF ACKERMAN CATH.
[2018-09-15 19:38] VITALS: BP 142/48
--- NOTE | 2018-09-15 19:43 | NUR ---
AWAKE AND ALERT. RESPIRATIONS UNLABORED ON O2/2L PER NASAL CANNULA. DENIES PAIN. ACKERMAN PATENT. NOTED CONFUSED AT TIMES. CALL LIGHT IN REACH.
--- NOTE | 2018-09-16 03:04 | NUR ---
CONTINUES RESTING QUIETLY IN BED. NO DISTRESS NOTED.
--- NOTE | 2018-09-16 04:50 | NUR ---
QUIET HOURS. RESTING QUIETLY. NO CHANGE IN CONDITION THIS SHIFT. CALL LIGHT IN REACH.
[2018-09-16 07:47] VITALS: BP 123/63
--- NOTE | 2018-09-16 09:57 | NUR ---
PATIENT ALERT AND ORIENTED THIS MORNING. ATE 10% OF BREAKFAST.STATES NOT HUNGRY. ACKERMAN CATH PATENT AND DRAINING CLEAR YELLOW URINE. NO COMPLAINTS OF PAIN OR DISCOMFORT. RESTING QUIETLY AT THIS TIME. CALL LIGHT WITHIN REACH. WILL CONTINUE TO MONITOR.
[2018-09-16 19:14] VITALS: BP 129/63
--- NOTE | 2018-09-16 19:17 | NUR ---
AWAKE AND ALERT. RESTING IN BED. RESPIRATIONS UNLABORED ON O2/2L PER NASAL CANNULA. NO DISTRESS NOTED. CALL LIGHT IN REACH.
--- NOTE | 2018-09-17 01:28 | NUR ---
RESTING IN BED. O2/2L ON PER NASAL CANNULA. NO ACUTE DISTRESS NOTED.
--- NOTE | 2018-09-17 05:27 | NUR ---
QUIET HOURS. RESPIRATIONS SHALLOW AND EVEN. O2/2L ON PER NASAL CANNULA. SKIN A LITTLE PALE BUT WARM TO TOUCH. NO ACUTE DISTRESS NOTED.
--- NOTE | 2018-09-17 07:31 | NUR ---
ALERT AND ORIENTED. WO C/O PAIN. RESP EVEN AND UNLABORED. CL IN REACH.
[2018-09-17 07:48] LABS: BASOPHILS 0.8 % (0-2); EOSINOPHILS 6.6 % (0-7); HEMOGLOBIN 11.7 g/dL (12-16); IMMATURE GRANULOCYTES 0.6 % (0-5); LYMPHOCYTES 22.9 % (15-50); MCH 31.2 pg (26.0-34.0); MCHC 32.5 g/dL (31.0-37.0); MEAN PLATELET VOLUME 11.4 fL (7.4-10.4); MONOCYTES 13.4 % (2-11); NEUTROPHILS 55.7 % (40-80); PLATELET COUNT 226 10x3/uL (130-400); RBC 3.75 10x6/uL (4.00-5.40); RDW 13.2 % (11.5-14.5); WBC 6.4 10x3/uL (4.8-10.8)
[2018-09-17 08:00] VITALS: BP 146/58
[2018-09-17 08:01] LABS: ANION GAP 8.6 mmol/L (8-16); CALCIUM 9.1 mg/dL (8.5-10.1); CARBON DIOXIDE 33.9 mmol/L (21.0-32.0); CREATININE - SERUM 1.2 mg/dL (0.6-1.3); POTASSIUM - SERUM 4.5 mmol/L (3.5-5.1)
--- NOTE | 2018-09-17 10:17 | NUR ---
RESTING IN BED AT THIS TIME WO DISTRESS.
--- NOTE | 2018-09-17 13:58 | NUR ---
Nutrition Follow Up: Chart reviewed Diet: Reg Mech Soft with Thin Liquids PO Intake: 83% meal avg BM: 09/14/18 Labs reviewed Meds noted including Lasix Rec continue regular diet with SIGNAL SYSTEM TESTING MAINTAINER recs for consistencies. Will continue to honor food preferences. RD following.
--- NOTE | 2018-09-17 14:47 | NUR ---
PATIENT ADMITTED TO REHAB FROM ACUTE FLOOR. HER PCP IS DR. AMBROSIO. HER SON LEONORA LIVES OUT OF STATE HIS NUMBER IS . SHE IS A RESIDENT OF [facility]. WILL CONTINUE TO FOLLOW WITH PATIENT.
--- NOTE | 2018-09-17 16:31 | NUR ---
NO CHANGE IN ASSESSMENT. RESP EVEN AND UNLAOBRED. NO DISTRESS NOTED. CL IN REACH.
--- NOTE | 2018-09-17 19:33 | NUR ---
PT IN BED EYES CLOSED, BED LOW, FLUIDS AND CALL LIGHT WITHIN REACH, NO NEEDS NOTED
[2018-09-17 22:37] VITALS: BP 173/61
--- NOTE | 2018-09-18 00:43 | NUR ---
PT IN BED EYES CLOSED, BED LOW, FLUIDS AND CALL LIGHT WITHIN REACH
[2018-09-18 07:32] VITALS: BP 153/105
--- NOTE | 2018-09-18 07:40 | NUR ---
NOTIFIED OF PT BP 153/105. PT GIVEN BP MEDICATIONS EARLY ALONG WITH OTHER AM MEDICATIONS. PT DENIES NEEDS. SITTINGUP IN BED FOR BREAKFAST, VITM.
--- NOTE | 2018-09-18 10:43 | NUR ---
ASSISTED PT OUT OF SHOWER WITH SIMIN BAIRES. PT IS A MAX/TOTAL ASSIST INTO WHEELCHAIR. PT DENIES NEEDS. WCTM.
--- NOTE | 2018-09-18 19:52 | NUR ---
PT IN BED EYES CLOSED,AROUSES TO VOICE, BED LOW, FLUIDS AND CALL LIGHT WITHIN REACH
[2018-09-18 21:29] VITALS: BP 162/76
--- NOTE | 2018-09-19 04:10 | NUR ---
PT IN BED, LOW POS, EYES CLOSED, AROUSES EASILY TO VOICE, FLUIDS AND CALL LIGHT WITHIN REACH, NO NEEDS NOTED
[2018-09-19 07:58] VITALS: BP 137/60
--- NOTE | 2018-09-19 07:58 | NUR ---
PT SITTING UP IN BED EATING BREAKFAST, DENIES NEEDS. WCTM.
[2018-09-19 08:29] LABS: BASOPHILS 0.4 % (0-2); EOSINOPHILS 5.5 % (0-7); HEMATOCRIT 35.4 % (36.0-48.0); HEMOGLOBIN 11.5 g/dL (12-16); IMMATURE GRANULOCYTES 0.3 % (0-5); LYMPHOCYTES 19.9 % (15-50); MCH 31.1 pg (26.0-34.0); MCHC 32.5 g/dL (31.0-37.0); MCV 95.7 fL (80.0-100.0); MEAN PLATELET VOLUME 11.9 fL (7.4-10.4); MONOCYTES 9.4 % (2-11); NEUTROPHILS 64.5 % (40-80); PLATELET COUNT 193 10x3/uL (130-400); RDW 12.9 % (11.5-14.5); WBC 7.2 10x3/uL (4.8-10.8)
[2018-09-19 08:38] LABS: ANION GAP 7.3 mmol/L (8-16); CALCIUM 9.4 mg/dL (8.5-10.1); CARBON DIOXIDE 37.2 mmol/L (21.0-32.0); POTASSIUM - SERUM 4.5 mmol/L (3.5-5.1)
[2018-09-19 20:02] VITALS: BP 152/53
--- NOTE | 2018-09-19 21:37 | NUR ---
AWAKE AND RESTING IN BED. RESPIRATIONS UNLABORED WITH O2/2L ON PER NASAL CANNULA. NO DISTRESSN NOTED. SOME CONFUSION BUT FOLLOWS SIMPLE COMMANDS. CALL LIGHT IN REACH.
--- NOTE | 2018-09-20 06:00 | NUR ---
QUIET HOURS. NO DISTRESS NOTED. TYRON PATENT. NO CHANGES IN CONDITION THIS SHFIT.
[2018-09-20 08:01] VITALS: BP 128/55
--- NOTE | 2018-09-20 08:15 | NUR ---
PT RESTING IN BED WITH EYES OPEN CALL LIGHT IN REACH WILL MONITER
--- NOTE | 2018-09-20 18:08 | NUR ---
PT RESTING IN BED WITH EYES OPEN CALL LIGHT IN REACH
[2018-09-20 19:00] VITALS: BP 125/71
--- NOTE | 2018-09-20 19:49 | NUR ---
RESTING IN BED WITH RESPIRATIONS UNLABORED. NO DISTRESS NOTED. O2/2L ON PER NASAL CANNULA. ACKERMAN IN PLACE AND PATENT. CALL LIGHT IN REACH.
--- NOTE | 2018-09-21 05:27 | NUR ---
QUIET HOURS. RESTING IN BED WITH NO DISTRESS NOTED. CONDITION UNCHANGED THIS SHIFT. TYRON PATENT. CALL LIGHT IN REACH.
[2018-09-21 08:00] VITALS: BP 138/48
[2018-09-21 08:36] LABS: ANION GAP 8.9 mmol/L (8-16); CALCIUM 9.3 mg/dL (8.5-10.1); CARBON DIOXIDE 32.4 mmol/L (21.0-32.0)
[2018-09-21 08:41] LABS: CREATININE - SERUM 1.3 mg/dL (0.6-1.3); POTASSIUM - SERUM 5.3 mmol/L (3.5-5.1)
--- NOTE | 2018-09-21 09:50 | NUR ---
PT AM MEDS ADMINISTERED. PT MURIEL BRITO. KUSUM.
[2018-09-21 10:10] LABS: BASOPHILS 0.2 % (0-2); EOSINOPHILS 4.9 % (0-7); HEMATOCRIT 32.7 % (36.0-48.0); HEMOGLOBIN 10.7 g/dL (12-16); IMMATURE GRANULOCYTES 0.3 % (0-5); LYMPHOCYTES 19.1 % (15-50); MCH 30.9 pg (26.0-34.0); MCHC 32.7 g/dL (31.0-37.0); MCV 94.5 fL (80.0-100.0); MEAN PLATELET VOLUME 11.5 fL (7.4-10.4); MONOCYTES 8.5 % (2-11); PLATELET COUNT 197 10x3/uL (130-400); RBC 3.46 10x6/uL (4.00-5.40); WBC 8.7 10x3/uL (4.8-10.8)
--- NOTE | 2018-09-21 19:06 | NUR ---
PATIENT IS SLEEPING. BED IS DOWN LOW WITH SIDE RAILS UP X2. CALL LIGHT IS IN REACH.
[2018-09-21 19:28] VITALS: BP 127/79
--- NOTE | 2018-09-21 21:42 | NUR ---
PT RESTING IN BED WITH EYES CLOSED. ASSISTED TO REPOSITION IN BED, AND LIGHTS TURNED OUT FOR THE NIGHT. NO NEEDS VOICED.
--- NOTE | 2018-09-21 23:49 | NUR ---
PT ASSISTED TO REPOSITION IN BED.
--- NOTE | 2018-09-22 02:18 | NUR ---
RESTING IN BED WITH EYES CLOSED.
--- NOTE | 2018-09-22 06:20 | NUR ---
PT ASSISTED TO TURN AND REPOSITION IN BED.
--- NOTE | 2018-09-22 07:30 | NUR ---
RECEIVED PATIENT. LYING IN BED EYES OPEN ALERT. CONTINUES ON 2L VIA NC. ACKERMAN CATH PATENT AND FREE OF KINKS. CHANGED BED LINENS AND PERFORMED ACKERMAN CATH CARE.
[2018-09-22 08:00] VITALS: BP 169/66
--- NOTE | 2018-09-22 08:00 | NUR ---
RESTING QUIETLY.CL IN REACH.
--- NOTE | 2018-09-22 08:43 | NUR ---
ADMININSTERED MEDICATIONS WHOLE WITHOUT DIFFICULTY. ALERT AND ORIENTED X2. REORIENTED TO TIME AND SITUATION. CONTINUES ON 2L VIA NC. CALL LIGHT WITHIN REACH, FALL PRECAUTIONS IN PLACE.
--- NOTE | 2018-09-22 14:11 | NUR ---
SITTING UP IN BED VISITING WITH SON. DENIES ANY NEEDS OR PAIN. RR EVEN AND UNLABORED. CALL LIGHT WITHIN REACH, FALL PRECAUTIONS IN PLACE
--- NOTE | 2018-09-22 17:08 | NUR ---
LYING IN BED ON RIGHT SIDE EYES CLOSED RESTING. NO S/S OF ACUTE DISTRESS NOTED. CALL LIGHT WITHIN REACH, FALL PRECAUTIONS IN PLACE
--- NOTE | 2018-09-22 19:00 | NUR ---
PATIENT IS RESTING IN HER BED WITH HER EYES CLOSED. SHE DENIES ANY NEEDS. HER BED IS DOWN LOW WITH SIDE RAILS UP X2. CALL LIGHT IS IN REACH.
[2018-09-22 19:45] VITALS: BP 162/58
--- NOTE | 2018-09-22 22:20 | NUR ---
PT IS RESTING QUIETLY IN BED WITH EYES CLOSED. RESPS ARE EVEN AND UNLABORED. NO ACUTE DISTRESS NOTED. TURNED AND REPOSITIONED IN BED Q2 HRS AND PRN.
--- NOTE | 2018-09-23 04:27 | NUR ---
RESTING QUIETLY IN BED WITH EYES CLOSED.
[2018-09-23 08:00] VITALS: BP 180/84
--- NOTE | 2018-09-23 08:20 | NUR ---
ADMININSTERED MORNING MEDS CRUSHED IN VANILLA PUDDING. DIFFICULTY SWALLOWING WHOLE PILLS, PATIENT WILL POCKET THEM IN CHEEKS AND UNDER TONGUE. SON AT BEDSIDE. CONTINUES ON 2L VIA NC. POOR APPETITE ONLY 10% BREAKFAST CONSUMED.
--- NOTE | 2018-09-23 13:46 | NUR ---
LYING IN BED ON RIGHT SIDE EYES CLOSED RESTING
--- NOTE | 2018-09-23 17:45 | NUR ---
ASSISTED UP IN BED FOR SUPPER.CL IN REACH.MEAL SET-UP PROVIDED.
--- NOTE | 2018-09-23 20:00 | NUR ---
PT IS RESTING IN BED WITH EYES CLOSED. AWOKE EASILY TO VERBAL STIMULI. SUPPER MEAL IS UNTOUCHED. PT DENIES WANTING TO EAT ANYTHING, SO TRAY REMOVED. PT IS ALERT TO SELF ONLY. CONFUSED TO TIME, PLACE AND SITUATION. PT IS COOPERATIVE WITH ALL CARE. O2 IS ON @ 2LPM PER NC. NO SOB NOTED. ACKERMAN CATH IS PATENT AND DRAINING TO A GRAVITY BAG. SR'S ARE UP X 3 IN BED. CALL LIGHT AND BEDSIDE TABLE ARE WITHIN EASY REACH.
[2018-09-23 20:59] VITALS: BP 171/79
--- NOTE | 2018-09-23 22:20 | NUR ---
RESTING QUIETLY IN BED WITH EYES CLOSED. TURNED AND REPOSITIONED Q2 HRS AND PRN.
--- NOTE | 2018-09-24 00:21 | NUR ---
RESTING IN BED WITH EYES CLOSED.
--- NOTE | 2018-09-24 00:54 | NUR ---
I have reviewed this patient and I concur with the Shift Assessment completed by the Licensed Practical Nurse today this shift.
--- NOTE | 2018-09-24 05:05 | NUR ---
RESTING IN BED WITH EYES CLOSED.
[2018-09-24 08:00] VITALS: BP 155/69
[2018-09-24 08:00] LABS: BASOPHILS 0.6 % (0-2); EOSINOPHILS 3.5 % (0-7); HEMATOCRIT 36.9 % (36.0-48.0); IMMATURE GRANULOCYTES 0.2 % (0-5); LYMPHOCYTES 23.1 % (15-50); MCH 30.8 pg (26.0-34.0); MCHC 32.5 g/dL (31.0-37.0); MCV 94.6 fL (80.0-100.0); MEAN PLATELET VOLUME 11.2 fL (7.4-10.4); MONOCYTES 12.5 % (2-11); NEUTROPHILS 60.1 % (40-80); PLATELET COUNT 236 10x3/uL (130-400); RDW 12.9 % (11.5-14.5); WBC 6.5 10x3/uL (4.8-10.8)
[2018-09-24 08:03] LABS: ANION GAP 9.3 mmol/L (8-16); CALCIUM 9.6 mg/dL (8.5-10.1); CARBON DIOXIDE 37.3 mmol/L (21.0-32.0); CREATININE - SERUM 1.4 mg/dL (0.6-1.3); POTASSIUM - SERUM 4.6 mmol/L (3.5-5.1)
--- NOTE | 2018-09-24 09:58 | RHP ---
PATIENT: DREW CHAIREZ MEDICAL RECORD: [id number] ACCOUNT: [id number] LOCATION:[facility]1112 : 33 ADMISSION DATE: 09/13/18 REHABILITATION HISTORY AND PHYSICAL EXAMINATION POST ADMISSION PHYSICIAN EXAMINATION DATE OF ADMISSION: 09/13/2018 ADMITTING DIAGNOSIS: Acute metabolic encephalopathy. HISTORY OF PRESENT ILLNESS: The patient admitted to inpatient rehab secondary to acute metabolic encephalopathy. She is an 83-year-old female patient who was in the Emergency Room on 09/07/2018 with fever and worsening confusion. She was seen on 09/06/2018, status post a fall at [facility]. She has had multiple ER visits on 08/28/2018, 09/02/2018, 09/06/2018, and during this hospital stay she has had a history of chronic diastolic congestive heart failure, hypertension, COPD, obesity, polyneuropathy, chronic pain, depression and anxiety. She has got a history of tobacco use and dementia. She was found to have a UTI in the Emergency Room. She has recently been treated for UTI. She was negative for influenza. She is currently on supplemental O2. Telemetry, got acute confusion, weakness and impaired mobility. She got a high risk for recent falls, self-care deficit. These are barriers to her discharge home. She was independent to moderately independent with her ADLs, moderately independent with mobility secondary to these recent illnesses. She is now currently setup for max assist for ADLs, max assist to total assist for mobility. She and her family with her son is her main caregiver and will plan for her to return back to her apartment at [facility] at her prior level of function or better if possible. She has been in her inpatient rehabilitation before and gotten good results. COMORBIDITIES: Include bronchiectasis, acute fall at home, metabolic encephalopathy, febrile illness, hypertension, CHF, COPD, morbid obesity, osteoarthritis, polyneuropathy, chronic pain, anxiety, former tobacco use, dementia, chronic kidney disease, weakness, advanced age and acute mental status changes. PAST MEDICAL HISTORY: Significant for CHF, hypertension, COPD, chronic pain, osteoarthritis, polyneuropathy, UTI, depression and anxiety. PAST SURGICAL HISTORY: Includes appendectomy, hysterectomy. She has had right axillary lymph node removed, breast mass before, cholecystectomy. ALLERGIES: HUEY INHIBITORS, MORPHINE AND CODEINE. CURRENT MEDICATIONS: Include Zoloft 50 mg daily; potassium 20 mEq daily; MiraLax 17 grams in 8 ounces of water daily; she is on Lidoderm patch as needed; Flonase nasal spray daily; B12 500 mcg daily; amlodipine 2.5 mg daily; tramadol 50 mg q.i.d. p.r.n.; sotalol 80 mg b.i.d.; Zofran 4 mg every 4 hours p.r.n.; Singulair 10 mg at bedtime; Zestril 20 mg b.i.d.; Neurontin 1200 mg b.i.d.; Lasix 20 mg daily p.r.n., she is also on a scheduled dose of 40 mg b.i.d.; she is on Tums daily; she is on Advair 2 puffs b.i.d. p.r.n.; Tessalon Perles 100 mg t.i.d. and Ventolin 2 puffs every 4 hours p.r.n. HABITS: No current alcohol or tobacco use. HISTORY AND PHYSICAL [id number] DREW CHAIREZ FAMILY HISTORY: Noncontributory. SOCIAL HISTORY: The patient hopes to return back to [facility] hopefully as available. REVIEW OF SYSTEMS: GENERAL: Does complain of weakness and fatigue. HEENT: Denies cold, cough, or congestion. CARDIOVASCULAR: Denies chest pain. PHYSICAL EXAMINATION: VITAL SIGNS: Stable, afebrile. GENERAL: A morbidly obese female, in no acute distress, alert upon exam. HEENT: Normocephalic and atraumatic. Mucosa moist. NECK: Supple. No lymphadenopathy. LUNGS: Clear in upper downing, but does have decreased breath sounds in the bases. HEART: Regular rate and rhythm. ABDOMEN: Benign. EXTREMITIES: No clubbing, cyanosis or edema. NEUROLOGIC: She does have some mild confusion and some noted weakness. LABORATORY DATA: White count is 8.9, H&H of 12 and 37, and platelet count was noted to be 231. Her sodium is 141, potassium 3.5, BUN and creatinine of 14 and 0.7 and blood sugar is noted to be 119. ASSESSMENT: This is an 83-year-old female patient admitted to rehab with a working diagnosis of metabolic encephalopathy. The patient has potential to make improvement. We instituted the following multidisciplinary therapies including but not limited to physical, occupational, respiratory, speech, nutritional services, prosthetics and orthotics. Given her complex medical conditions and risks for more complications, rehabilitation services cannot be provided at a low level of care such as prison facility. PLAN: 1. Admit to [facility] for intensive inpatient therapy to include the following disciplines; A. Physical therapy to improve gait, all transfer skills and bed mobility to a modified independent level. B. Occupational therapy to a modified independent level. C. Case management to assist with discharge planning and placement options. D. Nutrition to assist with nutritional needs. E. Rehabilitation nursing to assist in monitoring the patient's underlying medical conditions and to assist with any type of bowel or bladder management. 2. The patient's current medication and medical care will be continued. 3. The patient will be placed on standard fall precautions. 4. The patient's estimated length of stay is approximately 7-10 days. 5. We will watch her closely with her history of congestive heart failure and treat appropriately. TRANSINT:[id number] Voice Confirmation ID: [id number] DOCUMENT ID: [id number] 09/18/2018 Edited to harlan ROMERO. NICK notes whether there has been none or any medical/functional HISTORY AND PHYSICAL [id number] DREW CHAIREZ change since admission: - No change since preadmission screen. NICK attests patient continues to be appropriate for IRF: - Continues to be appropriate. MATT AMBROSIO MD at 0958 CC: [id number] DICTATION DATE: 09/14/18823 COOK SUPERVISOR: 09/14/1823 ADM IN [place] [id number] [place] [address]
--- NOTE | 2018-09-24 10:55 | NUR ---
PATIENT ATE BREAKFAST IN THERAPY ROOM WITH OT. PATIENT IS AWAKE AND ALERT WITH SOME CONFUSION. NO COMPLAINTS OF PAIN OR DISCOMFORT AT THIS TIME. SITTING UP IN WHEELCHAIR IN ROOM AT THIS TIME. WILL CONTINUE TO MONITOR. CALL LIGHT WITHIN REACH.
--- NOTE | 2018-09-24 12:45 | NUR ---
Nutrition Follow Up: Regular mechanical soft diet with thin liquids Pt ate 0% of all meals yesterday Observed lunch and pt not eating and seems somewhat lethargic Nursing to assist with meal Pt has CHF with no recent weights-spoke with nursing Pt has Ensure on trays and one on bedside table Recommend assistance and encouragement with meals RD following
--- NOTE | 2018-09-24 13:00 | NUR ---
PATIENT LETHARGIC AND SLOW TO RESPOND. FED PATIENT A FEW BITES OF LUNCH BUT REFUSED TO EAT MORE. WILL CONTINUE TO MONITOR.
--- NOTE | 2018-09-24 15:32 | NUR ---
PATIENT HAD A BED BATH THIS AFTERNOON AND HAS SLEEPING ALL AFTERNOON. WILL CONTINUE TO MONITOR. CALL LIGHT WITHIN REACH.
--- NOTE | 2018-09-24 16:33 | NUR ---
SPOKE WITH PATIENT SON LEONORA AND HE IS GOING TO CALL [facility] REGARDING ROLLING MACHINE OPERATOR AUTOMATIC CARE. HE WILL CALL AFTER HE SPEAKS TO ADMISSIONS AT [facility]. WILL CONTINUE TO FOLLOW WITH PATIENT.
--- NOTE | 2018-09-24 18:38 | NUR ---
MORE ALERT THIS EVENING. FED SELF 50% OF SUPPER. NO COMPLAINTS AT THIS TIME. SITTING UP IN BED STILL WORKING ON EATING SUPPER. WILL CONTINUE TO MONITOR.
[2018-09-24 19:00] VITALS: BP 91/45
--- NOTE | 2018-09-24 21:00 | NUR ---
PT IS RESTING IN BED WITH EYES CLOSED. AWOKE EASILY TO VERBAL STIMULI. PT ASSISTED TO REPOSITION AND TURN IN BED. NO FURTHER NEEDS VOICED.
--- NOTE | 2018-09-25 | NUR ---
RESTING QUIETLY IN BED WITH EYES CLOSED. NO DISTRESS NOTED.
[2018-09-25 08:00] VITALS: BP 150/57
--- NOTE | 2018-09-25 08:15 | NUR ---
PT RESTING IN BED WITH EYES OPEN CALL LIGHT IN REACH WILL MONITER
--- NOTE | 2018-09-25 11:49 | NUR ---
REFERRAL HAS BEEN FAXED TO [facility] POSSIBLE ADMISSION. WILL CONTINUE TO FOLLOW WITH PATIENT.
--- NOTE | 2018-09-25 17:54 | NUR ---
PT RESTING IN BED WITH EYES OPEN CALL LIGHT IN REACH PT EATING SUPPER TOLERATING WELL WILL MONITER
[2018-09-25 19:00] VITALS: BP 126/44
--- NOTE | 2018-09-25 20:00 | NUR ---
RECEIVED PATIENT SITTING UP IN BED. PATIENT ASSESMENT & VITAL SIGNS DONE. NO C/O PAIN OR DISTRESS. BED LOW. ALARM ON. CALL LIGHT WITHIN REACH. WILL CONTINUE TO MONITOR.
--- NOTE | 2018-09-26 01:37 | NUR ---
RESTING IN BED WITH RESPIRATIONS UNLABORED. NO DISTRESS NOTED. CALL LIGHT IN REACH.
--- NOTE | 2018-09-26 04:09 | NUR ---
PATIENT EYES CLOSED. RESPIRATIONS 18 & EVEN. ACKERMAN PATENT WITH YELLOW URINE. BED LOW. CALL LIGHT WITHIN REACH. WILL CONTINUE TO MONITOR.
[2018-09-26 08:08] LABS: BASOPHILS 0.4 % (0-2); EOSINOPHILS 4.2 % (0-7); HEMATOCRIT 35.2 % (36.0-48.0); HEMOGLOBIN 11.3 g/dL (12-16); IMMATURE GRANULOCYTES 0.3 % (0-5); LYMPHOCYTES 23.1 % (15-50); MCH 30.7 pg (26.0-34.0); MCHC 32.1 g/dL (31.0-37.0); MCV 95.7 fL (80.0-100.0); MEAN PLATELET VOLUME 11.5 fL (7.4-10.4); MONOCYTES 12.6 % (2-11); NEUTROPHILS 59.4 % (40-80); PLATELET COUNT 203 10x3/uL (130-400); RBC 3.68 10x6/uL (4.00-5.40); RDW 12.9 % (11.5-14.5)
--- NOTE | 2018-09-26 08:15 | NUR ---
PT RESTING IN BED WITH EYES OPEN CALL LIGHT IN REACH NO PROBLEMS WILL MONITER
[2018-09-26 08:19] LABS: ANION GAP 10.5 mmol/L (8-16); CALCIUM 9.4 mg/dL (8.5-10.1); CARBON DIOXIDE 34.9 mmol/L (21.0-32.0); CREATININE - SERUM 1.4 mg/dL (0.6-1.3); POTASSIUM - SERUM 4.4 mmol/L (3.5-5.1)
[2018-09-26 13:22] VITALS: BP 121/57
--- NOTE | 2018-09-26 18:47 | NUR ---
PT RESTING IN BED WITH EYES OPEN CALL LIGHT IN REACH NO PROBLEMS WILL MONITER
[2018-09-26 19:00] VITALS: BP 115/55
--- NOTE | 2018-09-26 20:00 | NUR ---
PATIENT RECEIVED SITTING UP IN BED. ASSESSMENT & VITAL SIGNS DONE. PATIENT HAD NO C/O PAIN OR DISTRESS. BED LOW. CALL LIGHT WITHIN REACH. WILL CONTINUE TO MONITOR.
--- NOTE | 2018-09-27 01:50 | NUR ---
PATIENT AWAKE WATCHING TV. BED LOW. CALL LIGHT WITHIN REACH. WILL CONTINUE TO MONITOR.
--- NOTE | 2018-09-27 06:30 | NUR ---
PT IN BED, LOW POSITION, EYES CLOSED, NO IMMEDIATE NEEDS NOTED FLUIDS AND CALL LIGHT WITHIN REACH
[2018-09-27 08:00] VITALS: BP 152/59
--- NOTE | 2018-09-27 08:00 | NUR ---
PATIENT IS ALERT/FORGETFULL. BED ALARM ON. CALL LIGHT WITHIN REACH. VOICES NO NEEDS AT THIS TIME. WILL CONTINUE WITH PLAN OF CARE
--- NOTE | 2018-09-27 10:13 | NUR ---
PATIENT IN REHAB ROOM. WORKING WITH PHYSICAL THERAPIST. STEPHANIE ANY PAIN/DISC
--- NOTE | 2018-09-27 12:19 | NUR ---
PATIENT SITTING UP AT BEDSIDE TO EAT LUNCH. CALL LIGHT WITHIN REACH
--- NOTE | 2018-09-27 13:13 | NUR ---
Nutrition Follow Up: Pt stated that her appetite was fair. She said that she feels it will improve when she returns home. RD stated agreement with her but encouraged her to increase po intake during admit to increase strength, promote healing, etc. Pt agreed and stated that she would try. She said that she would try Ensure some. Diet: Regular [facility] Soft PO Intake: 46% meal avg - much improved BM: 09/24/18 Labs reviewed Meds noted including Lasix, Vit B12 Rec continue regular diet with PUMP SERVICER HELPER recs for consistencies. Will order Ensure daily. RD following.
--- NOTE | 2018-09-27 15:40 | NUR ---
PATIENT HAS BEEN ACCEPTED TO [facility] . DANYEL AT [facility] HAS COMPLETED ADMISSION FORMS . PATIENT WILL DISCHARGE THERE IN AM VIA FACILITY VAN. WILL CONTINUE TO FOLLOW WITH PATIENT.
[2018-09-27 19:00] VITALS: BP 132/72
--- NOTE | 2018-09-27 20:47 | NUR ---
THE PATIENT WAS LYING IN BED WITH BED IN LOW POSITION, SIDERAILS X2 AND CALL LIGHT WITHIN REACH. PATIENT CONFUCED AND USE OF A CALL LLIGHT. RE-EDUCATION NEEDED. THE PATIENT APPEARS COMFORTABLE WITH NO QUESTIONS OR CONCERNS AT THIS TIME.
--- NOTE | 2018-09-28 03:48 | NUR ---
THE PATIENT APPEARS TO BE SLEEPING. BED IS IN THE LOW POSITION WITH SIDERAILS X2 AND CALL LIGHT WITHIN REACH.
[2018-09-28 06:31] LABS: ANION GAP 10.3 mmol/L (8-16); CALCIUM 9.6 mg/dL (8.5-10.1); CARBON DIOXIDE 32.7 mmol/L (21.0-32.0); CREATININE - SERUM 1.1 mg/dL (0.6-1.3)
[2018-09-28 07:23] LABS: BASOPHILS 0.3 % (0-2); EOSINOPHILS 3.9 % (0-7); HEMATOCRIT 33.9 % (36.0-48.0); HEMOGLOBIN 11.5 g/dL (12-16); IMMATURE GRANULOCYTES 0.1 % (0-5); LYMPHOCYTES 18.8 % (15-50); MCH 30.7 pg (26.0-34.0); MCHC 33.9 g/dL (31.0-37.0); MEAN PLATELET VOLUME 11.4 fL (7.4-10.4); MONOCYTES 9.6 % (2-11); NEUTROPHILS 67.3 % (40-80); PLATELET COUNT 212 10x3/uL (130-400); RBC 3.74 10x6/uL (4.00-5.40); RDW 12.5 % (11.5-14.5); WBC 7.7 10x3/uL (4.8-10.8)
[2018-09-28 07:27] LABS: MCV 90.6 fL (80.0-100.0)
[2018-09-28 08:00] VITALS: BP 161/91
--- NOTE | 2018-09-28 09:35 | NUR ---
PT AM MEDS ADMINSITERED. WHOLE IN APPLESAUCE. PT DENIES NEED.S WCTM.
--- NOTE | 2018-09-28 09:39 | NUR ---
PATIENT DISCHARGING TO [facility] TODAY VIA FACILITY VAN. PATIENT WILL FOLLOW WITH PENITENTIARY PHYSICIAN . NO DME OR HOME HEALTH NEEDED AT THIS TIME. PATIENT CHOICE FORM AND IMFM FORMS SIGNED, BY VERBAL CONSENT FORM SON LEONORA TOMMY AND FILED IN CHART.
--- NOTE | 2018-09-28 11:32 | NUR ---
REPORT CALLED TO [facility]. AWAITING TRANSPORT AT THIS TIME.
--- NOTE | 2018-09-28 12:16 | NUR ---
PT DISCHARGED WITH [facility] STAFF AT THIS TIME VIA WHEELCHAIR.
== END 2018-09-28 12:17 | DRG 70 ==
LOC: D.REHAB 15:10
PROVIDERS: ADMIT Emergency Medicine; ATTEND Emergency Medicine
DX: G93.41 Metabolic encephalopathy (principal); I50.33 Acute on chronic diastolic (congestive) heart failure; I13.0 Hypertensive heart and chronic kidney disease with heart failure and stage 1 through stage 4 chronic kidney disease, or unspecified chronic kidney disease; J47.0 Bronchiectasis with acute lower respiratory infection; I50.9 Heart failure, unspecified; N18.9 Chronic kidney disease, unspecified; E66.01 Morbid (severe) obesity due to excess calories; F03.90 Unspecified dementia, unspecified severity, without behavioral disturbance, psychotic disturbance, mood disturbance, and anxiety; F41.8 Other specified anxiety disorders; M19.90 Unspecified osteoarthritis, unspecified site; G62.9 Polyneuropathy, unspecified; R53.1 Weakness; W19.XXXD Unspecified fall, subsequent encounter; R13.11 Dysphagia, oral phase; G47.33 Obstructive sleep apnea (adult) (pediatric); K21.9 Gastro-esophageal reflux disease without esophagitis; J43.9 Emphysema, unspecified

== ENCOUNTER 2018-10-22 17:41 | Inpatient (IN) | payer MEDICARE, BC ==
[~2018-10-22] VITALS: Ht 162.6 cm; Wt 79.4 kg
[2018-10-22 18:13] LABS: BASOPHILS 0.2 % (0-2); EOSINOPHILS 0.3 % (0-7); HEMATOCRIT 33.9 % (36.0-48.0); HEMOGLOBIN 11.1 g/dL (12-16); LYMPHOCYTES 8.1 % (15-50); MCH 30.8 pg (26.0-34.0); MCHC 32.7 g/dL (31.0-37.0); MCV 94.2 fL (80.0-100.0); MEAN PLATELET VOLUME 11.1 fL (7.4-10.4); MONOCYTES 11.8 % (2-11); NEUTROPHILS 78.6 % (40-80); PLATELET COUNT 223 10x3/uL (130-400); WBC 15.7 10x3/uL (4.8-10.8)
[2018-10-22 18:30] LABS: ALBUMIN 2.4 g/dL (3.4-5.0); ANION GAP 10.7 mmol/L (8-16); BILIRUBIN - TOTAL 0.79 mg/dL (0.2-1.3); CALCIUM 9.1 mg/dL (8.5-10.1); CARBON DIOXIDE 32.7 mmol/L (21.0-32.0); CREATININE - SERUM 1.4 mg/dL (0.6-1.3); POTASSIUM - SERUM 3.4 mmol/L (3.5-5.1); PROTEIN - SERUM 7.6 g/dL (6.4-8.2)
[2018-10-22 18:37] LABS: MAGNESIUM - SERUM 1.5 mg/dL (1.8-2.4)
[2018-10-22 19:52] LABS: APPEARANCE CLEAR (CLEAR); COLOR YELLOW (YELLOW); NITRITE NEGATIVE (NEGATIVE); PROTEIN TRACE mg/dL (NEGATIVE); SPECIFIC GRAVITY 1.015 (1.005-1.020)
[2018-10-22 19:53] LABS: BILIRUBIN NEGATIVE (NEGATIVE); GLUCOSE NEGATIVE (NEGATIVE); KETONE NEGATIVE (NEGATIVE)
--- NOTE | 2018-10-22 20:45 | NUR ---
PT ARRIVED TO FLOOR VIA STRETCHER. TRANSFERED TO BED WITHOUT DIFFICULTY. PT ON NON REBREATHER. VSS. PT ORIENTED TO SELF, CAN ANSWER SIMPLE YES OR NO QUESTIONS. IV LEFT FA SL, NO REDNESS OR SWELLING AT INSERTION SITE, DRESSING CDI. [facility] CALLED AND STATED PT TAKES HER MEDS CRUSHED AND IS A TOTAL ASSIST. PER AR RECORDS PT IS ON A PUREED DIET WITH HONEY CONSISTENCY LIQUIDS AND 1200ML FLUID RESTRICTION, [facility] NURSE VERIFIED. PT SON CALLED TO CHECK ON MOTHER, UPDATE GIVEN. SON STATES HE WILL BE HERE IN AM. PT GIVEN BED BATH AND THICKENED WATER. DENIES OTHER NEEDS AT THIS TIME. BED LOWEST POSITION, SRX2, CL IN REACH. WILL CONT TO MONITOR
[2018-10-22 21:12] VITALS: BP 138/63
[2018-10-22] MEDS ORDERED: CARDURA2 MG PO (22:36)
[2018-10-22] MEDS ORDERED: FUROSEMIDE10 MG/M1 IM (22:39)
[2018-10-22] MEDS ORDERED: IPRAT-ALBUT 0.5-3 ML UPD (22:42)
[2018-10-22] MEDS ORDERED: MELATONIN 3 MG1 TAB PO (22:43)
[2018-10-22] MEDS ORDERED: MYRBETRIQ25 MG PO (22:44)
[2018-10-22] MEDS ORDERED: MUCINEX DM ER1 EAC1 PO (22:50)
[2018-10-22] MEDS ORDERED: PHENAZOPYRIDIN200 MG PO (22:52)
[2018-10-22] MEDS ORDERED: DETROL1 MG PO (23:01)
[2018-10-22] MEDS ORDERED: TROSPIUM CHLORI20 MG PO (23:02)
[2018-10-22] MEDS ORDERED: ACETAMINOPHEN325 MG PO (23:05)
[2018-10-22] MEDS ORDERED: VITAMIN D3400 UNI1 PO (23:06)
[2018-10-23 01:15] VITALS: BMI 30.1
[2018-10-23 01:43] VITALS: BP 120/66
--- NOTE | 2018-10-23 08:00 | NUR ---
ASSESSMENT PER FLOW SHEET. PT IS WITHOUT DISTRESS AT PRESENT. DOOR OPEN TO MONITOR. CALL LIGHT IN REACH
[2018-10-23 08:30] VITALS: BP 109/62; BP 142/77; BP 147/77
[2018-10-23 08:44] LABS: BASOPHILS 0.1 % (0-2); EOSINOPHILS 0 % (0-7); HEMATOCRIT 31.7 % (36.0-48.0); HEMOGLOBIN 10.4 g/dL (12-16); IMMATURE GRANULOCYTES 1.3 % (0-5); LYMPHOCYTES 8.6 % (15-50); MCH 30.1 pg (26.0-34.0); MCHC 32.8 g/dL (31.0-37.0); MONOCYTES 4.1 % (2-11); NEUTROPHILS 85.9 % (40-80); PLATELET COUNT 223 10x3/uL (130-400); RBC 3.45 10x6/uL (4.00-5.40); RDW 12.8 % (11.5-14.5)
[2018-10-23 08:50] LABS: WBC 11.1 10x3/uL (4.8-10.8)
[2018-10-23 08:51] LABS: MCV 91.9 fL (80.0-100.0)
[2018-10-23 09:00] LABS: ANION GAP 11.9 mmol/L (8-16); CALCIUM 8.6 mg/dL (8.5-10.1); CARBON DIOXIDE 29.9 mmol/L (21.0-32.0); CREATININE - SERUM 1.4 mg/dL (0.6-1.3); MAGNESIUM - SERUM 1.3 mg/dL (1.8-2.4); POTASSIUM - SERUM 3.8 mmol/L (3.5-5.1)
[2018-10-23 14:00] VITALS: BP 157/66
[2018-10-23 14:34] LABS: % SATURATION 45 % (15-55); IRON 76 ug/dl (35-150); TOTAL IRON BIND CAPACITY 166 ug/dl (260-445); UNSAT IRON BIND CAPACITY 90 ug/dl (150-375)
[2018-10-23 14:46] LABS: FERRITIN 802 ng/mL (3-244); LDH 256 U/L (81-234)
[2018-10-23 18:52] VITALS: BP 149/69
--- NOTE | 2018-10-23 19:23 | NUR ---
REMAINS WITHOUT CHANGE.CONT PLAN OF CARE
--- NOTE | 2018-10-23 20:30 | NUR ---
PT LYING IN BED WITHOUT DISTRESS. IV TO BOTH LEFT AND RIGHT FA, SL. O2 10L/HFNC. CRUSHED MEDS AND GAVE IN APPLESAUCE WITHOUT DIFFICULTY. PROVIDED PT WITH HONEY THICKENED WATER. MARIBEL ON. YELLOW GOWN, YELLOW BAND, SOCKS ON. BED LOWEST POSITION, SRX2, CL IN REACH. WILL CONT TO MONITOR
[2018-10-23 21:37] VITALS: BP 138/65
[2018-10-24] VITALS (7 sets, daily range): BP systolic 112–149; BP diastolic 53–110
[2018-10-24 06:36] LABS: BASOPHILS 0.1 % (0-2); EOSINOPHILS 0.8 % (0-7); HEMATOCRIT 31.1 % (36.0-48.0); HEMOGLOBIN 10.2 g/dL (12-16); IMMATURE GRANULOCYTES 1.5 % (0-5); LYMPHOCYTES 10.9 % (15-50); MCH 30.3 pg (26.0-34.0); MCHC 32.8 g/dL (31.0-37.0); MCV 92.3 fL (80.0-100.0); MEAN PLATELET VOLUME 11.6 fL (7.4-10.4); NEUTROPHILS 77.7 % (40-80); PLATELET COUNT 256 10x3/uL (130-400); RBC 3.37 10x6/uL (4.00-5.40); RDW 12.8 % (11.5-14.5)
[2018-10-24 06:49] LABS: ANION GAP 9.4 mmol/L (8-16); CALCIUM 8.7 mg/dL (8.5-10.1); CARBON DIOXIDE 32.9 mmol/L (21.0-32.0); CREATININE - SERUM 1.3 mg/dL (0.6-1.3); POTASSIUM - SERUM 3.3 mmol/L (3.5-5.1)
[2018-10-24 07:06] LABS: WBC 14.9 10x3/uL (4.8-10.8)
--- NOTE | 2018-10-24 08:36 | NUR ---
AAOX4. ON 11LPM VIA HIGH FLOW NC, LEFT FOREARM IV PATENT, SALINE LOCKED, RIGHT FOREARM, IV, PATENT, SALINE LOCKED, DENIES ANY CURRENT NEEDS OR DISCOMFORTS, BED LOWERED AND LOCKED, CALL LIGHT WITHIN REACH. CPOC
[2018-10-24 09:14] LABS: FOLATE (FOLIC ACID) - SERUM 6.1 ng/mL (>3.0)
[2018-10-24 16:39] LABS: APPEARANCE CLEAR (CLEAR); BILIRUBIN NEGATIVE (NEGATIVE); COLOR YELLOW (YELLOW); GLUCOSE NEGATIVE (NEGATIVE); KETONE NEGATIVE (NEGATIVE); NITRITE NEGATIVE (NEGATIVE); PROTEIN NEGATIVE (NEGATIVE); SPECIFIC GRAVITY 1.015 (1.005-1.020); UROBILINOGEN NORMAL (NORMAL)
[2018-10-25 00:30] VITALS: BP 130/68
[2018-10-25 04:30] VITALS: BP 130/60
[2018-10-25 05:39] LABS: BASOPHILS 0.1 % (0-2); EOSINOPHILS 1.3 % (0-7); HEMATOCRIT 30.5 % (36.0-48.0); IMMATURE GRANULOCYTES 1.6 % (0-5); LYMPHOCYTES 10.5 % (15-50); MCH 30.4 pg (26.0-34.0); MCHC 32.8 g/dL (31.0-37.0); MCV 92.7 fL (80.0-100.0); MEAN PLATELET VOLUME 11.6 fL (7.4-10.4); MONOCYTES 8.7 % (2-11); NEUTROPHILS 77.8 % (40-80); PLATELET COUNT 236 10x3/uL (130-400); RBC 3.29 10x6/uL (4.00-5.40); WBC 14.8 10x3/uL (4.8-10.8)
[2018-10-25 05:46] LABS: ANION GAP 7.6 mmol/L (8-16); CALCIUM 8.5 mg/dL (8.5-10.1); CARBON DIOXIDE 34.4 mmol/L (21.0-32.0); CREATININE - SERUM 1.3 mg/dL (0.6-1.3); MAGNESIUM - SERUM 1.8 mg/dL (1.8-2.4)
--- NOTE | 2018-10-25 07:30 | NUR ---
PT RESTING IN BED WITH HOB ELEVATED. O2 @ 10L NONREBREATHER IN PLACE. RESP SHALLOW, SATS 92%. PT DENIES PAIN AT THIS TIME. SALINE LOC TO RIGHT WRIST, LEFT FOREARM, PATENT, SITE WITHOUT REDNESS OR EDEMA. DENIES FURTHER NEEDS AT THIS TIME. CL WITHIN REACH. ENCOURAGED TO CALL WITH NEEDS. WILL CONTINUE TO MONITOR. CONTINUE POC
[2018-10-25 09:14] VITALS: BP 125/66
[2018-10-25 11:52] VITALS: Ht 162.6 cm; Wt 79.4 kg
--- NOTE | 2018-10-25 12:11 | NUR ---
NUTRITION F/U PT CURRENTLY SLEEPING. FAMILY AT BEDSIDE. SPEECH EVAL NOTED, INTAKE RECORDS SHOW ~25 TO 50 % INTAKE RECENT MEALS. RD FOLLOWING
--- NOTE | 2018-10-25 14:09 | MORECARE ---
CASE MANAGEMENT DISCHARGE SUMMARY PATIENT: DREW CHAIREZ UNIT: [id number] ADM DATE: 10/22/18 AGE: 83 : 34 SEX: F ROOM/BED: D.2226 AUTHOR: NABEEL BROCK PHYSICIAN: REFERRING PHYSICIAN: HANH MCLEAN MD DATE OF SERVICE: 10/25/18 Discharge Plan Patient Name: DREW CHAIREZ Facility: [facility]:[place] : 1935 Planned Disposition: SNF w Planned Readmission Anticipated Discharge Date: Discharge Date: Expected LOS: Initial Reviewer: [email or web address] Initial Review Date: 10/22/2018 Generated: 10/25/18 3:09 pm Patient Name: DREW CHAIREZ Page [id number] at 1409 All edits/amendments must be made on the electronic document DICTATION DATE: 10/25/18 1408 MOBILITY DEVELOPER: OSCAR 10/25/18 1408 RPT#: [id number] DC DATE: STATUS: ADM IN [facility] [address] [place] [address] END OF REPORT
--- NOTE | 2018-10-25 14:18 | MORECARE ---
CASE MANAGEMENT DISCHARGE SUMMARY PATIENT: DREW CHAIREZ UNIT: [id number] ADM DATE: 10/22/18 AGE: 83 : 34 SEX: F ROOM/BED: D.2226 AUTHOR: NABEEL BROCK PHYSICIAN: REFERRING PHYSICIAN: HANH MCLEAN MD DATE OF SERVICE: 10/25/18 Discharge Plan Patient Name: DREW CHAIREZ Facility: [facility]:[place] : 1935 Planned Disposition: SNF w Planned Readmission Anticipated Discharge Date: Discharge Date: Expected LOS: Initial Reviewer: [email or web address] Initial Review Date: 10/22/2018 Generated: 10/25/18 3:18 pm DCPIA - Discharge Planning Initial Assessment Updated by [email or web address]: Sanjana Hardin on 10/25/18 2:10 pm * Is the patient Alert and Oriented? No * How many steps to enter\exit or inside your home? 0/0 * PCP Dr. Acosta * Pharmacy [facility] Preadmission Environment [facility] * Facility Name [facility] * ADLs Total Dependent * List name and contact numbers for known caregivers / representatives who currently or will assist patient after discharge: Enzo freda - [phone] * Verbal permission to speak to the caregivers and representatives has been obtained from the patient. N/A * Community resources currently utilized None * Additional services required to return to the preadmission environment? No * Can the patient safely return to the preadmission environment? Yes * Has this patient been hospitalized within the prior 30 days at any hospital? Yes Last DP export: 10/25/18 1:09 pm Patient Name: DREW CHAIREZ Page [id number] at 1418 All edits/amendments must be made on the electronic document DICTATION DATE: 10/25/181417 COMMUNITY ADMINISTRATOR: OSCAR 10/25/181417 RPT#: [id number] DC DATE: STATUS: ADM IN [facility] [address] [place] [address] END OF REPORT
--- NOTE | 2018-10-25 14:26 | MORECARE ---
CASE MANAGEMENT DISCHARGE SUMMARY PATIENT: DREW CHAIREZ UNIT: [id number] ADM DATE: 10/22/18 AGE: 83 : 34 SEX: F ROOM/BED: D.2226 AUTHOR: VINOD,DOC PHYSICIAN: REFERRING PHYSICIAN: HANH MCLEAN MD DATE OF SERVICE: 10/25/18 Discharge Plan Patient Name: DREW CHAIREZ Facility: [facility]:[place] : 1935 Planned Disposition: SNF w Planned Readmission Anticipated Discharge Date: Discharge Date: Expected LOS: Initial Reviewer: [email or web address] Initial Review Date: 10/22/2018 Generated: 10/25/18 3:26 pm Comments DCP- Discharge Planning Updated by [email or web address]: Sanjana Hardin on 10/25/18 1:[address] Patient Name: DREW CHAIREZ Admission Status: ER Accout number: [id number] Admission Date: 10-22-2018 : 1935 Admission Diagnosis:PNEUMONIA, UNSPECIFIED ORGANISM Attending: HANH MCLEAN Current LOS: 3 Anticipated DC Date: Planned Disposition: SNF w Planned Readmission Primary Insurance: MEDICARE A & B Discharge Planning Comments: CM met with patient and her son in the room. Patient sleeps while I am in there. Her son, Enzo, states that she was in [facility] SNF but he is transitioning her to LTC there. The plan is for her to return to [facility] at discharge. NITISH signed. He states patient's friend, Jolie, may call and we can give her information to report back to him. Jolie's phone number is [phone]. CM will continue to follow and assist with discharge planning/needs. Lehr Attendant: Sanjana Hardin DCPIA - Discharge Planning Initial Assessment Updated by [email or web address]: Sanjana Hardin on 10/25/18 2:10 pm * Is the patient Alert and Oriented? No * How many steps to enter\exit or inside your home? 0/0 * PCP Dr. Acosta * Pharmacy [facility] * Preadmission Environment [facility] * Facility Name [facility] * ADLs Total Dependent * List name and contact numbers for known caregivers / representatives who currently or will assist patient after discharge: Enzo barba - [phone] * Verbal permission to speak to the caregivers and representatives has been obtained from the patient. N/A * Community resources currently utilized None * Additional services required to return to the preadmission environment? No * Can the patient safely return to the preadmission environment? Yes * Has this patient been hospitalized within the prior 30 days at any hospital? Yes Coverage Notice Reviewer: [email or web address] Cady Hardin Notice Issued Date-Time: 10/25/2018 14:21 Notice Type: Patient Choice Letter Notice Delivered To: Family Member Relationship to Patient: Son Oxyacetylene Cutter Name: Enzo Delivery Method: HAND - Hand Delivered Bisi Days: Prior Verbal Notification: Recipient Understood Notice: Yes Recipient Signature: Yes Med Rec Note Co-signed by Attending: Coverage Notice Comment: NITISH for [facility] Last DP export: 10/25/18 1:18 pm Patient Name: DREW CHAIREZ Page [phone] at 1426 All edits/amendments must be made on the electronic document DICTATION DATE: 10/25/18 1426 REHABILITATION TECH: OSCAR 10/25/18 1426 RPT#: [id number] DC DATE: STATUS: ADM IN [facility] [address] [place] [address] END OF REPORT
[2018-10-25 16:33] VITALS: BP 183/79
--- NOTE | 2018-10-25 20:00 | NUR ---
AWAKE,ALERT WITH SOME CONFUSION NOTED. RESP UNLABORED. O2 @ 10L PER HIGHFLOW. NO DISTRESS NOTED. SL TO LFA AND RIGHT WRIST INTACT WITHOUT REDNESS OR EDEMA NOTED. EDEMA NOTED TO LOWER LEGS. CL IN REACH. BED ALARM IN PLACE.
[2018-10-25 20:02] VITALS: BP 184/84
[2018-10-26] VITALS: BP 159/75
--- NOTE | 2018-10-26 00:24 | NUR ---
I have reviewed this patient and I concur with the Shift Assessment completed by the Licensed Practical Nurse today this shift.
[2018-10-26 04:00] VITALS: BP 157/67
[2018-10-26 06:44] LABS: ANION GAP 12.3 mmol/L (8-16); CALCIUM 8.4 mg/dL (8.5-10.1); CARBON DIOXIDE 31.7 mmol/L (21.0-32.0); CREATININE - SERUM 1.1 mg/dL (0.6-1.3)
[2018-10-26 07:28] LABS: BASOPHILS 0.1 % (0-2); EOSINOPHILS 0.1 % (0-7); HEMATOCRIT 32.3 % (36.0-48.0); HEMOGLOBIN 10.9 g/dL (12-16); LYMPHOCYTES 7.9 % (15-50); MCH 31.1 pg (26.0-34.0); MCHC 33.7 g/dL (31.0-37.0); MEAN PLATELET VOLUME 11.8 fL (7.4-10.4); MONOCYTES 2.7 % (2-11); NEUTROPHILS 87.2 % (40-80); PLATELET COUNT 202 10x3/uL (130-400); RBC 3.51 10x6/uL (4.00-5.40); RDW 12.5 % (11.5-14.5); WBC 12.4 10x3/uL (4.8-10.8)
--- NOTE | 2018-10-26 07:45 | NUR ---
PATIENT IN BED WITH NO COMPLAINTS OR SIGNS OF DISTRESS. SITTING UP IN BED WITH IV INTACT. CALL LIGHT WITHIN REACH.
[2018-10-26 08:04] VITALS: BP 153/62
--- NOTE | 2018-10-26 12:30 | NUR ---
PATIENT SITTING UP IN BED EATING LUNCH. NO PROBLMS AT THIS TIME. STATED SHE IS TIRED OF DRINKING THICKENED LIQUIDS. EXPLAINED TO PATIENT TO TALK TO SPEECH THERAPY NEXT TIME AND SEE IF SHE IS ABLE TO HAVE THIN LIQUIDS SOON. VERBALIZED UNDERSTANDING. IV INTACT. NO COMPLAINTS. CALL LIGHT WITHIN REACH.
[2018-10-26 13:09] VITALS: BP 137/58
--- NOTE | 2018-10-26 16:41 | EC ---
PATIENT:DREW CHAIREZ DATE OF SERVICE: 10/22/18 SEX: F MEDICAL RECORD: [id number] DATE OF : [birth year] LOCATION:D.MS Michelle222 AGE OF PATIENT: 83 ADMISSION DATE: 10/22/18 REFERRING PHYSICIAN: INTERPRETING PHYSICIAN: ALISSON MAURICE MD ECHOCARDIOGRAM REPORT ECHO CHARGES 4 ECHO COMPLETE Date: 10/23/18 CLINICAL DIAGNOSIS: LVF ECHOCARDIOGRAPHIC MEASUREMENTS (adult normal given) AC root (d.<3.7cm) 3.3 cm LV Septum d (<1.2 cm> 1.9 cm Valve Excursion 1.8 cm LV Septum (systole) 2.0 cm Left Atria (s.<4.0cm> 3.9 cm LVPW d(<1.2cm) 1.7 cm RV (d.<2.3cm) 2.1 cm LVPW (sytole) 2.0 cm LV diastole(<5.6CM) 3.2 cm MV E-F(>70mm/sec) cm LV systole 1.4 cm LVOT Diameter 1.6 cm MV exc.(>10mm) cm Est.ejection fraction (50-75%) % DOPPLER: LVIT cm/sec A 131 cm/sec E 104 cm/sec LA cm/sec RVSP 60.3 mmHg LVOT 169 cm/sec AOP1/2T m/s Asc. Ao 240 cm/sec RVOT 118 cm/sec RA cm/sec PA 174 cm/sec AV Gradient Peak 23.0 mmHg AV Mean 11.0 mmHg AV Area 1.6 cm MV Gradient Peak 7.8 mmHg MV Mean 2.8 mmHg MV Area cm COMMENTS: Curriculum And Assessment Coordinator: Ksenia DILLARDOE Back Roller: 1 Dr. Maurice TAPE# PACS Pericardial Effusion N DATE OF SERVICE: 10/23/2018 FINDINGS: 1. Left ventricular chamber size is within normal limits. Left ventricular systolic function is normal. Overall ejection fraction estimated at 60%. 2. Left atrium, right atrium, and right ventricular chamber sizes are within normal limits. 3. Valvular structures have normal structure and motion. 4. Doppler interrogation reveals mild tricuspid regurgitation. No other valvular insufficiency or stenosis. Pulmonary systolic pressure is elevated, ECHOCARDIOGRAM REPORT [id number] DREW CHAIREZ estimated 60 mmHg. 5. No evidence of pericardial effusion or left ventricular thrombus. TRANSINT:[id number] Voice Confirmation ID: [id number] DOCUMENT ID: [id number] ALISSON MAURICE MD at 1641 CC: [id number] DICTATION DATE: 10/24/18 121 SALES PROJECT COORDINATOR: 10/24/18 1227 ADM IN [facility] [address] [place] [address]
[2018-10-26 16:44] VITALS: BP 140/76
--- NOTE | 2018-10-26 18:32 | NUR ---
PATIENT IN BED WITH IV INTACT. NO COMPLAINTS OR SIGNS OF DISTRESS. CALL LIGHT WITHIN REACH.
[2018-10-26 20:00] VITALS: BP 169/66
[2018-10-27] VITALS: BP 155/76
[2018-10-27 04:00] VITALS: BP 154/65
[2018-10-27 05:52] LABS: ANION GAP 10.1 mmol/L (8-16); CALCIUM 8.2 mg/dL (8.5-10.1); CARBON DIOXIDE 32.6 mmol/L (21.0-32.0); CREATININE - SERUM 1.1 mg/dL (0.6-1.3); MAGNESIUM - SERUM 1.8 mg/dL (1.8-2.4); POTASSIUM - SERUM 3.7 mmol/L (3.5-5.1)
[2018-10-27 05:58] LABS: BASOPHILS 0.1 % (0-2); EOSINOPHILS 0 % (0-7); HEMATOCRIT 30.5 % (36.0-48.0); HEMOGLOBIN 10.2 g/dL (12-16); IMMATURE GRANULOCYTES 1.6 % (0-5); LYMPHOCYTES 7.7 % (15-50); MCH 30.3 pg (26.0-34.0); MCHC 33.4 g/dL (31.0-37.0); MCV 90.5 fL (80.0-100.0); MEAN PLATELET VOLUME 11.1 fL (7.4-10.4); MONOCYTES 3.9 % (2-11); NEUTROPHILS 86.7 % (40-80); PLATELET COUNT 237 10x3/uL (130-400); RBC 3.37 10x6/uL (4.00-5.40); RDW 12.6 % (11.5-14.5); WBC 14.2 10x3/uL (4.8-10.8)
--- NOTE | 2018-10-27 08:00 | NUR ---
PT RESTING EYES CLOSED NO SIGNS OF DISTRESS NOTED EASY RISE AND FALL OF CHEST CL IN REACH
[2018-10-27 09:13] VITALS: BP 187/69
--- NOTE | 2018-10-27 13:57 | NUR ---
I have reviewed this patient and I concur with the Shift Assessment completed by the Licensed Practical Nurse today this shift.
[2018-10-27 14:18] VITALS: BP 128/59
[2018-10-27 17:28] VITALS: BP 147/58
[2018-10-27 19:53] VITALS: BP 156/63
[2018-10-28] VITALS: BP 126/47
--- NOTE | 2018-10-28 01:10 | NUR ---
I have reviewed this patient and I concur with the Shift Assessment completed by the Licensed Practical Nurse today this shift.
[2018-10-28 04:00] VITALS: BP 124/61
[2018-10-28 08:45] VITALS: BP 168/68
--- NOTE | 2018-10-28 10:48 | NUR ---
PT RESTING IN BED. NO SIGNS OF DISTRESS. IV TO RIGHT WRIST PATENT NO REDNESS OR TENDERNESS. ON 4L HIGH FLOW NC. DENIES ANY FUTHER NEED AT THIS TIME. CALL LIGHT IN REACH. BED LOW POSITION. NO FAMILY AT BEDSIDE. BUTTOCKS IS REDDENED
--- NOTE | 2018-10-28 11:19 | NUR ---
Rehab Note- Acute Inpatient Rehab prescreen order received. The patient was just recently in our acute inpatient rehab unit and was discharged 09/28 to [facility]. She is too low for acute inptient rehab & would suggest to discharge back to SNF as her family plans to transition the patient into LTC also. Thank you for this referral! Yamini Campbell RN Clinical Liaison, [facility] Rehab
[2018-10-28 12:23] VITALS: BP 114/71
--- NOTE | 2018-10-28 17:36 | NUR ---
I have reviewed this patient and I concur with the Shift Assessment completed by the Licensed Practical Nurse today this shift.
[2018-10-28 17:39] VITALS: BP 142/53
[2018-10-28 20:00] VITALS: BP 138/48
[2018-10-29] VITALS: BP 131/56
--- NOTE | 2018-10-29 01:49 | NUR ---
IV TO RIGHT HAND OUT. DCd WITH CATHETER INTACT. 22G IV RESITED TO LEFT FOREARM, 1ST ATTEMPT. BLOOD RETURN NOTED, FLUSHES WITHOUT COMPLAINTS. WILL CONTINUE TO MONITOR.
[2018-10-29 03:00] VITALS: BP 146/74
--- NOTE | 2018-10-29 05:28 | NUR ---
I have reviewed this patient and I concur with the Shift Assessment completed by the Licensed Practical Nurse today this shift.
[2018-10-29 05:42] LABS: BASOPHILS 0 % (0-2); EOSINOPHILS 0 % (0-7); HEMOGLOBIN 10.3 g/dL (12-16); IMMATURE GRANULOCYTES 1.6 % (0-5); LYMPHOCYTES 7.9 % (15-50); MCH 30.1 pg (26.0-34.0); MCHC 33.2 g/dL (31.0-37.0); MCV 90.6 fL (80.0-100.0); MEAN PLATELET VOLUME 10.9 fL (7.4-10.4); MONOCYTES 4.2 % (2-11); NEUTROPHILS 86.3 % (40-80); PLATELET COUNT 261 10x3/uL (130-400); RBC 3.42 10x6/uL (4.00-5.40); RDW 12.8 % (11.5-14.5); WBC 12.8 10x3/uL (4.8-10.8)
[2018-10-29 05:55] LABS: ANION GAP 9.2 mmol/L (8-16); CALCIUM 8.4 mg/dL (8.5-10.1); CARBON DIOXIDE 33.7 mmol/L (21.0-32.0); POTASSIUM - SERUM 3.9 mmol/L (3.5-5.1)
[2018-10-29 09:10] VITALS: BP 179/86
[2018-10-29 13:33] VITALS: BP 167/68
[2018-10-29 16:49] VITALS: BP 147/75
[2018-10-29 18:00] VITALS: BP 145/76
[2018-10-30 01:06] VITALS: BP 158/72
--- NOTE | 2018-10-30 03:46 | NUR ---
RESTING ON BACK RESPRATION EVEN AND UNLABORED CALL LIGHT IN REACH.
[2018-10-30 04:21] LABS: BASOPHILS 0 % (0-2); EOSINOPHILS 0.1 % (0-7); HEMATOCRIT 32.8 % (36.0-48.0); HEMOGLOBIN 11.1 g/dL (12-16); IMMATURE GRANULOCYTES 1.4 % (0-5); LYMPHOCYTES 8.5 % (15-50); MCH 30.9 pg (26.0-34.0); MCHC 33.8 g/dL (31.0-37.0); MCV 91.4 fL (80.0-100.0); MEAN PLATELET VOLUME 10.5 fL (7.4-10.4); MONOCYTES 3.2 % (2-11); NEUTROPHILS 86.8 % (40-80); PLATELET COUNT 262 10x3/uL (130-400); RBC 3.59 10x6/uL (4.00-5.40); WBC 10.9 10x3/uL (4.8-10.8)
[2018-10-30 04:28] LABS: CALCIUM 8.6 mg/dL (8.5-10.1); CARBON DIOXIDE 33.2 mmol/L (21.0-32.0); CREATININE - SERUM 1.2 mg/dL (0.6-1.3); POTASSIUM - SERUM 4.2 mmol/L (3.5-5.1)
[2018-10-30 05:56] VITALS: BP 171/87
--- NOTE | 2018-10-30 08:00 | NUR ---
REPORT RECIEVED ASSUMED CARE. PATIENT IN BED WITH IV INTACT. NO COMPLAINTS OR SIGNS OF DISTRESS. CALL LIGHT WITHIN REACH.
[2018-10-30 09:13] VITALS: BP 152/74
--- NOTE | 2018-10-30 09:57 | NUR ---
Nutrition follow up: Mechanical soft diet with 100,75,100% intake of meals yesterday Pt reports excellent appetite Encouraged good po intake to help optimize healing and maintain strength RD following
--- NOTE | 2018-10-30 10:48 | MORECARE ---
CASE MANAGEMENT DISCHARGE SUMMARY PATIENT: DREW CHAIREZ UNIT: [id number] ADM DATE: 10/22/18 AGE: 83 : 34 SEX: F ROOM/BED: D.2226 AUTHOR: VINOD,DOC PHYSICIAN: REFERRING PHYSICIAN: HANH MCLEAN MD DATE OF SERVICE: 10/30/18 Discharge Plan Patient Name: DREW CHAIREZ Facility: [facility]:[place] : 1935 Planned Disposition: SNF w Planned Readmission Anticipated Discharge Date: Discharge Date: Expected LOS: Initial Reviewer: [email or web address] Initial Review Date: 10/22/2018 Generated: 10/30/18 11:48 am Comments DCP- Discharge Planning Updated by [email or web address]: Sanjana Hardin on 10/30/18 9:[address] Anticipate discharge today or tomorrow. I faxed updated clinical to kya Yu for [facility]. CM will continue to follow and assist with discharge planning/needs. DCP- Discharge Planning Updated by [email or web address]: Sanjana Hardin on 10/25/18 1:[address] Patient Name: DREW CHAIREZ Admission Status: ER Accout number: [id number] Admission Date: 10-22-2018 : 1935 Admission Diagnosis:PNEUMONIA, UNSPECIFIED ORGANISM Attending: HANH MCLEAN Current LOS: 3 Anticipated DC Date: Planned Disposition: SNF w Planned Readmission Primary Insurance: MEDICARE A & B Discharge Planning Comments: CM met with patient and her son in the room. Patient sleeps while I am in there. Her son, Enzo, states that she was in [facility] SNF but he is transitioning her to LTC there. The plan is for her to return to [facility] at discharge. NITISH signed. He states patient's friend, Jolie, may call and we can give her information to report back to him. Jolie's phone number is [phone]. CM will continue to follow and assist with discharge planning/needs. Seed Production Field Supervisor: Sanjana Hardin DCPIA - Discharge Planning Initial Assessment Updated by [email or web address]: Sanjana Hardin on 10/25/18 2:10 pm * Is the patient Alert and Oriented? No * How many steps to enter\exit or inside your home? 0/0 * PCP Dr. Acosta * Pharmacy [facility] * Preadmission Environment Residential Facility * Facility Name [facility] * ADLs Total Dependent * List name and contact numbers for known caregivers / representatives who currently or will assist patient after discharge: Enzo barba - [phone] * Verbal permission to speak to the caregivers and representatives has been obtained from the patient. N/A * Community resources currently utilized None * Additional services required to return to the preadmission environment? No * Can the patient safely return to the preadmission environment? Yes * Has this patient been hospitalized within the prior 30 days at any hospital? Yes External Providers External Provider: [facility] Next Contact Date: Service Request Date: Service Type: Resolution: Reviewer: Comments: Coverage Notice Reviewer: [email or web address] Cady Hardin Notice Issued Date-Time: 10/25/2018 14:21 Notice Type: Patient Choice Letter Notice Delivered To: Family Member Relationship to Patient: Son Die Polisher Name: Enzo Delivery Method: HAND - Hand Delivered Bisi Days: Prior Verbal Notification: Recipient Understood Notice: Yes Recipient Signature: Yes Med Rec Note Co-signed by Attending: Coverage Notice Comment: NITISH for [facility] Last DP export: 10/25/18 1:26 pm Patient Name: DREW CHAIREZ Page [id number] at 1048 All edits/amendments must be made on the electronic document DICTATION DATE: 10/30/18 1048 STAFF TECHNOLOGIST: OSCAR 10/30/18 1048 RPT#: [id number] DC DATE: STATUS: ADM IN [facility] [address] [place] [address] END OF REPORT
[2018-10-30 12:00] VITALS: BP 116/71
--- NOTE | 2018-10-30 12:30 | NUR ---
PATIENT SITTING UP IN BED WITH IV INTACT. NO COMPLAINTS OR SIGNS OF DISTRESS. EATING MECHANICAL SOFT DIET WITH NO PROBLEMS. CALL LIGHT WITHIN REACH.
--- NOTE | 2018-10-30 14:44 | NUR ---
Buttocks red and blanchable. Pt is incontinent of bowels and bladder. She is being turned/repositioned q 2 hours. Recommend calmoseptine cream for buttocks/willis area due to incontinence. Will monitor as needed.
--- NOTE | 2018-10-30 18:45 | NUR ---
PATIENT IN BED WITH IV INTACT. NO COMPLAINTS OR SIGNS OF DISTRESS. FRIEND AT BEDSIDE. CALL LIGHT WITHIN REACH.
[2018-10-30 21:14] VITALS: BP 126/72
[2018-10-31 01:40] VITALS: BP 141/70
[2018-10-31 05:02] VITALS: BP 134/60
[2018-10-31 06:28] LABS: BASOPHILS 0 % (0-2); EOSINOPHILS 0 % (0-7); HEMATOCRIT 33.2 % (36.0-48.0); IMMATURE GRANULOCYTES 1.2 % (0-5); LYMPHOCYTES 7.5 % (15-50); MCH 30.1 pg (26.0-34.0); MCHC 33.1 g/dL (31.0-37.0); MEAN PLATELET VOLUME 10.3 fL (7.4-10.4); MONOCYTES 4.3 % (2-11); PLATELET COUNT 305 10x3/uL (130-400); RBC 3.65 10x6/uL (4.00-5.40)
[2018-10-31 06:44] LABS: ANION GAP 7.4 mmol/L (8-16); CALCIUM 8.8 mg/dL (8.5-10.1); CARBON DIOXIDE 32.7 mmol/L (21.0-32.0); POTASSIUM - SERUM 4.1 mmol/L (3.5-5.1)
[2018-10-31 06:48] LABS: WBC 14.9 10x3/uL (4.8-10.8)
[2018-10-31 08:53] VITALS: BP 142/76
[2018-10-31 12:00] VITALS: BP 129/84
[2018-10-31] MEDS ORDERED: TESSALON PERLE100 MG PO (13:19)
[2018-10-31] MEDS ORDERED: MUCINEX600 MG PO (13:20)
[2018-10-31] MEDS ORDERED: ELIQUIS5 MG PO (13:22)
--- NOTE | 2018-10-31 13:57 | MORECARE ---
CASE MANAGEMENT DISCHARGE SUMMARY PATIENT: DREW CHAIREZ UNIT: [id number] ADM DATE: 10/22/18 AGE: 83 : 34 SEX: F ROOM/BED: D.2226 AUTHOR: NABEEL BROCK PHYSICIAN: REFERRING PHYSICIAN: HANH MCLEAN MD DATE OF SERVICE: 10/31/18 Discharge Plan Patient Name: DREW CHAIREZ Facility: [facility]:[place] : 1935 Planned Disposition: SNF w Planned Readmission Anticipated Discharge Date: Discharge Date: Expected LOS: Initial Reviewer: [email or web address] Initial Review Date: 10/22/2018 Generated: 10/31/18 2:57 pm Comments DCP- Discharge Planning Updated by [id number]: Sanjana Hardin on 10/31/18 12:[address] Received discharge order. She will be discharged to a skilled bed at [facility]. I spoke with Cherelle Barreto with the [facility] and faxed discharge order/MAR. They will pick her up, Cherelle to call back with leaf size picker time. I have informed her of need for oxygen. She is currently on 2.5 liters. I called patient's son, Enzo, he agrees with discharge today to [facility]. CM will continue to follow and assist with discharge planning/needs. DCP- Discharge Planning Updated by [id number]: Sanjana Hardin on 10/30/18 9:[address] Anticipate discharge today or tomorrow. I faxed updated clinical to kya Yu for [facility]. CM will continue to follow and assist with discharge planning/needs. DCP- Discharge Planning Updated by [id number]: Sanjana Hardin on 10/25/18 1:[address] Patient Name: DREW CHAIREZ Admission Status: ER Accout number: [id number] Admission Date: 10-22-2018 : 1935 Admission Diagnosis:PNEUMONIA, UNSPECIFIED ORGANISM Attending: HANH MCLEAN Current LOS: 3 Anticipated DC Date: Planned Disposition: SNF w Planned Readmission Primary Insurance: MEDICARE A & B Discharge Planning Comments: CM met with patient and her son in the room. Patient sleeps while I am in there. Her son, Enzo, states that she was in [facility] SNF but he is transitioning her to LTC there. The plan is for her to return to [facility] at discharge. NITISH signed. He states patient's friend, Jolie, may call and we can give her information to report back to him. Jolie's phone number is [phone]. CM will continue to follow and assist with discharge planning/needs. Front Office Help: Sanjana Hardin DCPIA - Discharge Planning Initial Assessment Updated by [email or web address]: Sanjana Hardin on 10/25/18 2:10 pm * Is the patient Alert and Oriented? No * How many steps to enter\exit or inside your home? 0/0 * PCP Dr. Acosta * Pharmacy [facility] * Preadmission Environment [facility] Facility * Facility Name [facility] * ADLs Total Dependent * List name and contact numbers for known caregivers / representatives who currently or will assist patient after discharge: Enzo barba - [phone] * Verbal permission to speak to the caregivers and representatives has been obtained from the patient. N/A * Community resources currently utilized None * Additional services required to return to the preadmission environment? No * Can the patient safely return to the preadmission environment? Yes * Has this patient been hospitalized within the prior 30 days at any hospital? Yes Coverage Notice Reviewer: [id number] Cady Hardin Notice Issued Date-Time: 10/25/2018 14:21 Notice Type: Patient Choice Letter Notice Delivered To: Family Member Relationship to Patient: Son Journeyman Welder Name: Enzo Delivery Method: HAND - Hand Delivered Bisi Days: Prior Verbal Notification: Recipient Understood Notice: Yes Recipient Signature: Yes Med Rec Note Co-signed by Attending: Coverage Notice Comment: NITISH for [facility] Reviewer: [id number] Cady Hardin Notice Issued Date-Time: 10/31/2018 13:51 Notice Type: IM Discharge Notice Notice Delivered To: Family Member Relationship to Patient: Son Journeyman Welder Name: Enzo Sigala Delivery Method: PHONE - Phone Bisi Days: Prior Verbal Notification: Recipient Understood Notice: Yes Recipient Signature: Med Rec Note Co-signed by Attending: Coverage Notice Comment: Patient seems confused about IMM, I called her son and discussed the IMM and left copy at patient's bedside. Last DP export: 10/30/18 9:48 a Patient Name: DREW CHAIREZ Page [id number] at 1357 All edits/amendments must be made on the electronic document DICTATION DATE: 10/31/18 1354 RESTORATION SILVERSMITH: OSCAR 10/31/186 RPT#: [id number] DC DATE: STATUS: ADM IN [facility] [address] [place] [address] END OF REPORT
--- NOTE | 2018-10-31 14:14 | NUR ---
PT IS WITHOUT DISTRESS.MONITOR FOR CHANGE
== END 2018-10-31 15:23 | DRG 177 ==
LOC: D.ER 17:41 → D.MS 18:50 → D.EDHOLD 18:50 → D.MS 19:19
PROVIDERS: Emergency Medicine; ADMIT Internal Medicine Nephrology; ATTEND Internal Medicine Nephrology
DX: J69.0 Pneumonitis due to inhalation of food and vomit (principal); J96.01 Acute respiratory failure with hypoxia; R53.2 Functional quadriplegia; I26.99 Other pulmonary embolism without acute cor pulmonale; I82.411 Acute embolism and thrombosis of right femoral vein; N17.9 Acute kidney failure, unspecified; I10 Essential (primary) hypertension; I50.9 Heart failure, unspecified; J44.9 Chronic obstructive pulmonary disease, unspecified; F03.90 Unspecified dementia, unspecified severity, without behavioral disturbance, psychotic disturbance, mood disturbance, and anxiety; I11.0 Hypertensive heart disease with heart failure

== ENCOUNTER 2019-02-14 22:24 | Emergency (ER) | payer MEDICARE, BC ==
[~2019-02-14] VITALS: Ht 162.6 cm; Wt 83.6 kg
[~2019-02-14 22:24] MED LIST changes: +ACETAMINOPHEN325 MG PO; +CARDURA2 MG PO; +DETROL1 MG PO; +ELIQUIS5 MG PO; +FUROSEMIDE10 MG/M1 IM; +MELATONIN 3 MG1 TAB PO; +MUCINEX DM ER1 EAC1 PO; +PHENAZOPYRIDIN200 MG PO; +TROSPIUM CHLORI20 MG PO; +VITAMIN D3400 UNI1 PO
[2019-02-14 22:30] VITALS: Ht 162.6 cm; Wt 83.6 kg
[2019-02-15 01:17] VITALS: BP 141/61
== END 2019-02-15 01:17 | disposition home or self-care (01) ==
LOC: D.ER 22:24
DX: G89.29 Other chronic pain (principal); I10 Essential (primary) hypertension; W05.0XXA Fall from non-moving wheelchair, initial encounter

== ENCOUNTER 2020-04-02 01:25 | Inpatient (IN) | payer MEDICARE, BC ==
[2020-04-01] VITALS (10 sets, daily range): BP systolic 140–169; BP diastolic 71–81
[~2020-04-02] VITALS: Ht 162.6 cm; Wt 84.4 kg
[2020-04-02] VITALS (22 sets, daily range): BP systolic 95–179; BP diastolic 54–98; Ht 162.6 cm; Wt 84.4 kg
--- NOTE | 2020-04-02 01:28 | NUR ---
PT PLACED ON AIRBORNE PRECAUTIONS D/T POSITIVE COVID AT [facility].
--- NOTE | 2020-04-02 01:32 | NUR ---
PURE WICK PLACED AT THIS TIME, PT TOLERATED WELL.
[2020-04-02] MEDS ORDERED: ALDACTONE25 MG PO (01:52)
[2020-04-02] MEDS ORDERED: NORVASC10 MG PO (01:53)
[2020-04-02] MEDS ORDERED: NORVASC5 MG PO (01:54)
[2020-04-02] MEDS ORDERED: ARTIFICIAL TEARS (01:54)
[2020-04-02] MEDS ORDERED: MUCINEX600 MG PO (01:57)
[2020-04-02] MEDS ORDERED: ULTRAM50 MG PO (01:59)
[2020-04-02] MEDS ORDERED: MILK OF MAGNESI30 ML PO (02:03)
[2020-04-02] MEDS ORDERED: MELATONIN 3 MG1 TAB PO (02:04)
[2020-04-02] MEDS ORDERED: VITAMIN B-12500 MCG PO (02:04)
[2020-04-02] MEDS ORDERED: CATAPRES0.1 MG PO (02:06)
[2020-04-02] MEDS ORDERED: CELEBREX 100 M100 MG PO (02:07)
[2020-04-02 02:20] LABS: APTT 34.8 SECONDS (22.8-39.4); INR 1.46 (0.85-1.17); PROTIME 17.6 SECONDS (11.6-15.0)
[2020-04-02 02:27] LABS: BASOPHILS 0.1 % (0-2); EOSINOPHILS 0.8 % (0-7); HEMATOCRIT 42.5 % (36.0-48.0); HEMOGLOBIN 13.9 g/dL (12-16); IMMATURE GRANULOCYTES 0.2 % (0-5); MCH 30.5 pg (26.0-34.0); MCHC 32.7 g/dL (31.0-37.0); MCV 93.4 fL (80.0-100.0); MEAN PLATELET VOLUME 11.8 fL (7.4-10.4); MONOCYTES 10.2 % (2-11); NEUTROPHILS 75.7 % (40-80); RBC 4.55 10x6/uL (4.00-5.40); RDW 13.4 % (11.5-14.5); WBC 9.8 10x3/uL (4.8-10.8)
[2020-04-02 02:31] LABS: PLATELET COUNT 142 10x3/uL (130-400)
[2020-04-02 02:35] LABS: ALBUMIN 3.5 g/dL (3.4-5.0); ALKALINE PHOSPHATASE 60 U/L (30-120); ALT (SGPT) 16 U/L (10-68); BILIRUBIN - TOTAL 0.29 mg/dL (0.2-1.3); CALC OSMOLALITY 280 mosm/kg (275-300); CALCIUM 8.8 mg/dL (8.5-10.1); CARBON DIOXIDE 24.9 mmol/L (21.0-32.0); CHLORIDE - SERUM 102 mmol/L (98-107); CKMB 0.3 U/L (0.0-3.6); CREATINE KINASE 58 UL (21-215); CREATININE - SERUM 1.8 mg/dL (0.6-1.3); FERRITIN 192 ng/mL (3-244); GLUCOSE 121 mg/dL (74-106); PRO BNP 1069 pg/mL (0-450); PROTEIN - SERUM 7.9 g/dL (6.4-8.2); SODIUM 133 mmol/L (136-145); TROPONIN-I < 0.017 ng/mL (0.000-0.060); UREA NITROGEN 51 mg/dL (7-18); eGFR NON AFRICAN AMERICAN 28 mL/min (90-120)
[2020-04-02 02:54] LABS: POTASSIUM - SERUM 6.9 mmol/L (3.5-5.1)
--- NOTE | 2020-04-02 03:28 | NUR ---
PT DRANK PO MEDICATION WITHOUT DIFFICULTY. PT ON ARCHITECTURAL MODEL MAKER. VSS. WILL CONTINUE TO MONITOR.
--- NOTE | 2020-04-02 04:00 | NUR ---
STOP TIME ROCEPHIN AT THIS TIME.
--- NOTE | 2020-04-02 04:10 | NUR ---
SPOKE WITH MAXIMILIAN, NURSE AT [facility] AND UPDATED HER ON PLAN OF CARE. CALL BACK [phone]. SHE FAXED DNR PAPERWORK TO ED. EDP NOTIFIED AND DNR ORDER IN PLACE.
[2020-04-02 04:12] LABS: BILIRUBIN NEGATIVE (NEGATIVE); KETONE NEGATIVE (NEGATIVE); NITRITE NEGATIVE (NEGATIVE); UROBILINOGEN NORMAL mg/dL (< 2)
[2020-04-02 04:17] LABS: AMORPHOUS SEDIMENT <1+ LPF (NONE SEEN); BACTERIA FEW HPF (NONE SEEN); EPITHELIAL CELLS 0-5 /hpf (0-5); WHITE CELLS - URINE 0-5 HPF (0-4)
--- NOTE | 2020-04-02 04:27 | NUR ---
PT REPOSITIONED IN BED AFTER PERINEAL CARE AND LINEN CHANGE. DENIES CURRENT NEEDS. PT STILL USING ACCESSORY MUSCLES, HOWEVER SPO2 REMAINS STABLE 96-98% ON 2L NC, RESPIRATIONS APPROX 22/MIN. CALL LIGHT WITHIN REACH. WILL CONTINUE TO MONITOR.
--- NOTE | 2020-04-02 04:28 | NUR ---
STOP TIME NS BOLUS AT THIS TIME.
--- NOTE | 2020-04-02 05:06 | NUR ---
VS DOCUMENTED BY ICU, THESE ARE INACCURATE FOR PT. IN ER HOLD ROOM 10. ICU CHARGE NURSSE INFORMED.
--- NOTE | 2020-04-02 05:17 | NUR ---
INFUSION COMPLETE FOR AZITHROMYCIN AT THIS TIME.
--- NOTE | 2020-04-02 05:40 | NUR ---
150ML OUTPUT CLEAR YELLOW URINE VIA PUREWICK. PERINEAL CARE PROVIDED, URINE ON PAD, PAD CHANGED. PT REPOSITIONED TO RIGHT SIDE LYING POSITION, PILLOW BEHIND BACK AND FOLDED SHEET BETWEEN ANKLES. PT EXPRESSES "I FEEL BETTER." CALL LIGHT WITHIN REACH, BED RAILS RAISED X2. BED LOWEST POSITION. PT REMAINS ON PROFILE TRIMMER. MAINTANENCE FLUIDS CONTINUE TO INFUSE IN IV LEFT FA. DRESSING DRY AND INTACT. SEE EMAR.
[2020-04-02 08:58] LABS: BASOPHILS 0 % (0-2); EOSINOPHILS 0 % (0-7); HEMATOCRIT 39.8 % (36.0-48.0); IMMATURE GRANULOCYTES 0.2 % (0-5); MCH 30.6 pg (26.0-34.0); MCHC 32.7 g/dL (31.0-37.0); MCV 93.6 fL (80.0-100.0); MONOCYTES 2.3 % (2-11); NEUTROPHILS 89.5 % (40-80); PLATELET COUNT 119 10x3/uL (130-400); RBC 4.25 10x6/uL (4.00-5.40); RDW 13.5 % (11.5-14.5); WBC 9.2 10x3/uL (4.8-10.8)
[2020-04-02 09:44] LABS: C-REACTIVE PROTEIN 6.6 mg/dL (0.0-0.9); CALC OSMOLALITY 292 mosm/kg (275-300); CALCIUM 8.2 mg/dL (8.5-10.1); CARBON DIOXIDE 22.3 mmol/L (21.0-32.0); CHLORIDE - SERUM 104 mmol/L (98-107); CREATINE KINASE 52 UL (21-215); CREATININE - SERUM 1.5 mg/dL (0.6-1.3); FERRITIN 191 ng/mL (3-244); GLUCOSE 158 mg/dL (74-106); PRO BNP 991 pg/mL (0-450); SODIUM 140 mmol/L (136-145); UREA NITROGEN 44 mg/dL (7-18); eGFR NON AFRICAN AMERICAN 35 mL/min (90-120)
[2020-04-02 09:49] LABS: TROPONIN-I < 0.017 ng/mL (0.000-0.060)
[2020-04-02 09:50] LABS: POTASSIUM - SERUM 6.2 mmol/L (3.5-5.1)
[2020-04-02 11:37] LABS: ERYTHROCYTE SEDIMENTATION RATE 42 mm/hr (0-42)
[2020-04-02 15:32] LABS: CKMB 0.7 U/L (0.0-3.6); CREATINE KINASE 78 UL (21-215); TROPONIN-I < 0.017 ng/mL (0.000-0.060)
[2020-04-02 15:37] LABS: ANION GAP 16.7 mmol/L (8-16); CARBON DIOXIDE 24.2 mmol/L (21.0-32.0); POTASSIUM - SERUM 5.9 mmol/L (3.5-5.1)
[2020-04-02 21:11] LABS: CKMB 0.1 U/L (0.0-3.6); CREATINE KINASE 57 UL (21-215)
[2020-04-02 21:12] LABS: TROPONIN-I < 0.017 ng/mL (0.000-0.060)
--- NOTE | 2020-04-02 23:10 | NUR ---
I TRANSPORTED PT VIA BED TO ROOM 2128 AT THIS TIME BED LOW AND LOCKED CALL LIGHT IN REACH PT IS CONFUSED AND POSITIVE FOR COVID PRECAUTIONS TAKEN IN DROPLET ISOLATION
--- NOTE | 2020-04-03 02:48 | NUR ---
RESTARTED IV WITH 22 TO LEFT FA
[2020-04-03 04:00] VITALS: BP 162/72
--- NOTE | 2020-04-03 08:00 | NUR ---
PT RECEIVED AWAKE IN BED, CONFUSED TO PLACE, TIME, SITUATION, PERSON. ACKERMAN STATLOCK REPLACED DUE TO BEING PULLED OFF. TELEMETRY LEADS REPLACED DUE TO BEING PULLED OFF. LABS DRAWN AND SENT. MEDS GIVEN.
[2020-04-03 08:56] LABS: BASOPHILS 0.1 % (0-2); EOSINOPHILS 0.1 % (0-7); HEMATOCRIT 40.8 % (36.0-48.0); HEMOGLOBIN 13.3 g/dL (12-16); IMMATURE GRANULOCYTES 0.1 % (0-5); LYMPHOCYTES 19.9 % (15-50); MCH 30.2 pg (26.0-34.0); MCHC 32.6 g/dL (31.0-37.0); MCV 92.5 fL (80.0-100.0); MEAN PLATELET VOLUME 11.4 fL (7.4-10.4); MONOCYTES 9.9 % (2-11); NEUTROPHILS 69.9 % (40-80); PLATELET COUNT 138 10x3/uL (130-400); RBC 4.41 10x6/uL (4.00-5.40); RDW 13.2 % (11.5-14.5); WBC 7.7 10x3/uL (4.8-10.8)
[2020-04-03 09:07] LABS: CALCIUM 8.9 mg/dL (8.5-10.1); CARBON DIOXIDE 30.1 mmol/L (21.0-32.0); PHOSPHOROUS 2.6 mg/dL (2.5-4.9)
[2020-04-03 09:10] LABS: CREATININE - SERUM 1.1 mg/dL (0.6-1.3)
[2020-04-03 09:11] LABS: POTASSIUM - SERUM 4.1 mmol/L (3.5-5.1)
--- NOTE | 2020-04-03 13:04 | NUR ---
PT STILL NOT ORIENTED ABOUT WHAT'S GOING ON. ASKING ABOUT HER SON. DIALED NUMBER AND TRANSFERRED CALL TO ROOM. MAYBE FAMILIAR VOICE WILL HELP HER TO KNOW WHAT IS GOING ON.
[2020-04-03 17:26] VITALS: BP 173/75
[2020-04-03 17:49] LABS: APTT 30.5 SECONDS (22.8-39.4); PROTIME 14.2 SECONDS (11.6-15.0)
[2020-04-03 17:56] LABS: INR 1.11 (0.85-1.17)
[2020-04-03 22:00] VITALS: BP 196/64
[2020-04-04 00:54] VITALS: BP 195/82
[2020-04-04 05:00] VITALS: BP 175/76
[2020-04-04 06:26] LABS: BASOPHILS 0.1 % (0-2); EOSINOPHILS 0.3 % (0-7); HEMATOCRIT 41.9 % (36.0-48.0); IMMATURE GRANULOCYTES 0.4 % (0-5); LYMPHOCYTES 17.3 % (15-50); MCH 30.1 pg (26.0-34.0); MCHC 33.4 g/dL (31.0-37.0); MEAN PLATELET VOLUME 11.2 fL (7.4-10.4); NEUTROPHILS 70.9 % (40-80); PLATELET COUNT 151 10x3/uL (130-400); RBC 4.65 10x6/uL (4.00-5.40); RDW 12.8 % (11.5-14.5); WBC 7.6 10x3/uL (4.8-10.8)
[2020-04-04 06:35] LABS: MCV 90.1 fL (80.0-100.0)
[2020-04-04 06:48] LABS: ANION GAP 12.8 mmol/L (8-16); CALCIUM 9.4 mg/dL (8.5-10.1); CARBON DIOXIDE 28.9 mmol/L (21.0-32.0); MAGNESIUM - SERUM 1.7 mg/dL (1.8-2.4); PHOSPHOROUS 2.8 mg/dL (2.5-4.9); POTASSIUM - SERUM 3.7 mmol/L (3.5-5.1)
[2020-04-04 06:49] LABS: CREATININE - SERUM 0.8 mg/dL (0.6-1.3)
[2020-04-04 07:47] VITALS: BP 153/65
--- NOTE | 2020-04-04 08:00 | NUR ---
PT ASSISTED SITTING UP IN BED. RR EVEN AND UNLABORED ON 4L NC. DENIES NEEDS OR PAIN AT THIS TIME. CALL LIGHT WTIHIN REACH. BED IN LOWEST POSITION. WILL CONTINUE TO MONITOR.
[2020-04-04 11:33] VITALS: BP 182/74
[2020-04-04 15:42] VITALS: BP 170/64
--- NOTE | 2020-04-04 17:44 | NUR ---
I have reviewed this patient and I concur with the Shift Assessment completed by the Licensed Practical Nurse today this shift.
[2020-04-04 20:37] VITALS: BP 168/77
[2020-04-05 00:27] VITALS: BP 184/90
[2020-04-05 04:23] VITALS: BP 172/84
--- NOTE | 2020-04-05 05:42 | NUR ---
UNABLE TO DRAW AM LAB, FIRE SPRINKLER INSTALLER NOTIFIED
--- NOTE | 2020-04-05 07:20 | NUR ---
RECIEVE REPORT. RESTING IN BED WITH EYES CLOSED. NO SIGNS OF DISTRESS. CONTINUE PLAN OF CARE AND SAFETY PRECAUTIONS.
[2020-04-05 07:43] VITALS: BP 150/78
[2020-04-05 12:12] LABS: BASOPHILS 0 % (0-2); EOSINOPHILS 0.3 % (0-7); HEMATOCRIT 41.3 % (36.0-48.0); HEMOGLOBIN 14.1 g/dL (12-16); IMMATURE GRANULOCYTES 0.4 % (0-5); LYMPHOCYTES 11.6 % (15-50); MCH 30.7 pg (26.0-34.0); MCHC 34.1 g/dL (31.0-37.0); MCV 89.8 fL (80.0-100.0); MEAN PLATELET VOLUME 10.9 fL (7.4-10.4); MONOCYTES 9.2 % (2-11); NEUTROPHILS 78.5 % (40-80); PLATELET COUNT 174 10x3/uL (130-400); RDW 12.7 % (11.5-14.5); WBC 7.1 10x3/uL (4.8-10.8)
[2020-04-05 12:33] LABS: ALBUMIN 3.1 g/dL (3.4-5.0); ANION GAP 12.8 mmol/L (8-16); BILIRUBIN - DIRECT 0.16 mg/dL (0.00-0.30); BILIRUBIN - INDIRECT 0.41 mg/dL (0.00-1.00); BILIRUBIN - TOTAL 0.57 mg/dL (0.2-1.3); CALCIUM 9.4 mg/dL (8.5-10.1); CARBON DIOXIDE 27.9 mmol/L (21.0-32.0); CREATININE - SERUM 0.9 mg/dL (0.6-1.3); PHOSPHOROUS 3.1 mg/dL (2.5-4.9); POTASSIUM - SERUM 3.7 mmol/L (3.5-5.1); PROTEIN - SERUM 7.4 g/dL (6.4-8.2)
[2020-04-05 16:34] VITALS: BP 188/81
[2020-04-05 20:15] VITALS: BP 190/76
[2020-04-06 00:01] VITALS: BP 192/90
--- NOTE | 2020-04-06 00:05 | NUR ---
FFP INFUSING PER ORDER. PT TOLERATING WELL.
[2020-04-06 03:20] VITALS: BP 186/94
--- NOTE | 2020-04-06 04:04 | NUR ---
BP NOTED TO BE 204/106 MANUAL. RECEIVED NEW ORDER TO START SOTOLOL 80MG BID AND CLONIDINE 0.1MG PRN Q 8 HOURS FOR SYSTOLIC BP >180, PER HOME MED REC.
--- NOTE | 2020-04-06 07:20 | NUR ---
RECIEVE REPORT. ALERT AND CONFUSED. UNSUCCESSFUL REORIENT. DENIES ANY NEEDS. ACKERMAN DRAINING BY GRAVITY. CONTINUE PLAN OF CARE AND SAFETY PRECAUTIONS.
[2020-04-06 07:25] VITALS: BP 175/67
[2020-04-06 07:32] LABS: CALC OSMOLALITY 280 mosm/kg (275-300); CALCIUM 8.9 mg/dL (8.5-10.1); CARBON DIOXIDE 27.5 mmol/L (21.0-32.0); CHLORIDE - SERUM 102 mmol/L (98-107); CREATININE - SERUM 0.7 mg/dL (0.6-1.3); GLUCOSE 101 mg/dL (74-106); POTASSIUM - SERUM 3.6 mmol/L (3.5-5.1); SODIUM 139 mmol/L (136-145); UREA NITROGEN 20 mg/dL (7-18); eGFR NON AFRICAN AMERICAN 84 mL/min (90-120)
[2020-04-06 07:39] LABS: HEMATOCRIT 40.3 % (36.0-48.0); HEMOGLOBIN 13.9 g/dL (12-16); MCH 30.7 pg (26.0-34.0); MCHC 34.5 g/dL (31.0-37.0); PLATELET COUNT 200 10x3/uL (130-400); RBC 4.53 10x6/uL (4.00-5.40); RDW 12.7 % (11.5-14.5); WBC 5.9 10x3/uL (4.8-10.8)
[2020-04-06 08:25] LABS: LYMPHOCYTES 17 % (15-50); MONOCYTES 24 % (2-11); NEUTROPHILS 57 % (40-80)
[2020-04-06 08:26] LABS: PLATELET ESTIMATE NORMAL
[2020-04-06 11:00] VITALS: BP 173/66
--- NOTE | 2020-04-06 12:48 | NUR ---
Nutrition Follow-up: Pt in droplet isolation; covid-19+. Poor PO intake. Apple Ensure TID per Dr. Morales. Diet: Cardiac PO intake: 0% x 3 yesterday Wt: 186# (04/02) Last BM: 04/05 per chart Labs reviewed Meds noted: Florajen, Pepcid, Zofran, zinc sulfate, vit D, vit C, NS @ 100 -Encourage PO intake and honor food preferences within diet restrictions. -If PO intake remains poor, may consider nutrition support. -Need new wt if possible; noted daily wts ordered. -RD following.
[2020-04-06 13:31] LABS: BILIRUBIN - DIRECT 0.12 mg/dL (0.00-0.30); BILIRUBIN - INDIRECT 0.13 mg/dL (0.00-1.00); BILIRUBIN - TOTAL 0.25 mg/dL (0.2-1.3); PROTEIN - SERUM 6.6 g/dL (6.4-8.2)
--- NOTE | 2020-04-06 16:50 | NUR ---
ALERT AND CONFUSED. RESTING IN BED. UA COLLECTED AND TAKEN TO LAB. WALK TEST FAILED. DESATS TO MID 80s WITH OUT OXYGEN. CONTINE PLAN OF CARE AND SAFETY PRACAUTIONS.
[2020-04-06 20:00] VITALS: BP 174/64
--- NOTE | 2020-04-06 21:16 | NUR ---
PT HAS A HEART RATE OF 45 IM GOING TO HOLD BETAPACE FOR NOW OTHERWISE ALERT BP 174/64
[2020-04-07] VITALS: BP 192/110
[2020-04-07 04:00] VITALS: BP 196/71
[2020-04-07 05:06] LABS: BASOPHILS 0 % (0-2); EOSINOPHILS 0.2 % (0-7); HEMATOCRIT 39.1 % (36.0-48.0); HEMOGLOBIN 13.3 g/dL (12-16); IMMATURE GRANULOCYTES 0.6 % (0-5); MCH 30.3 pg (26.0-34.0); MCV 89.1 fL (80.0-100.0); MEAN PLATELET VOLUME 10.8 fL (7.4-10.4); MONOCYTES 16.3 % (2-11); NEUTROPHILS 55.9 % (40-80); PLATELET COUNT 196 10x3/uL (130-400); RBC 4.39 10x6/uL (4.00-5.40); RDW 12.5 % (11.5-14.5); WBC 5.3 10x3/uL (4.8-10.8)
[2020-04-07 05:38] LABS: ALBUMIN 2.8 g/dL (3.4-5.0); ALKALINE PHOSPHATASE 60 U/L (30-120); ALT (SGPT) 23 U/L (10-68); BILIRUBIN - DIRECT 0.08 mg/dL (0.00-0.30); BILIRUBIN - INDIRECT 0.23 mg/dL (0.00-1.00); BILIRUBIN - TOTAL 0.31 mg/dL (0.2-1.3); CALC OSMOLALITY 280 mosm/kg (275-300); CALCIUM 8.9 mg/dL (8.5-10.1); CARBON DIOXIDE 27.3 mmol/L (21.0-32.0); CHLORIDE - SERUM 104 mmol/L (98-107); CREATININE - SERUM 0.7 mg/dL (0.6-1.3); GLUCOSE 97 mg/dL (74-106); PHOSPHOROUS 3.1 mg/dL (2.5-4.9); POTASSIUM - SERUM 3.7 mmol/L (3.5-5.1); PROTEIN - SERUM 6.6 g/dL (6.4-8.2); SODIUM 139 mmol/L (136-145); UREA NITROGEN 22 mg/dL (7-18); eGFR NON AFRICAN AMERICAN 84 mL/min (90-120)
--- NOTE | 2020-04-07 07:20 | NUR ---
RECIEVE REPORT. RESTING IN BED WITH EYES CLOSED. NO SIGNS OF DISTRESS. CONTINUE PLAN OF CARE AND SAFETY PRECAUTIONS.
[2020-04-07 07:56] VITALS: BP 194/80
--- NOTE | 2020-04-07 08:27 | MORECARE ---
CASE MANAGEMENT DISCHARGE SUMMARY PATIENT: DREW CHAIREZ UNIT: [id number] ADM DATE: 04/02/20 AGE: 85 : 34 SEX: F ROOM/BED: D.2454 AUTHOR: NABEEL BROCK PHYSICIAN: REFERRING PHYSICIAN: JAMI DUFFY MD DATE OF SERVICE: 04/07/20 Discharge Plan Patient Name: DREW CHAIREZ Facility: [facility]:[place] : 1935 Planned Disposition: Group Home Facility Anticipated Discharge Date: Discharge Date: Expected LOS: Initial Reviewer: [email or web address] Initial Review Date: 04/02/2020 Generated: 04/07/20 9:26 am Patient Name: DREW CHAIREZ Page [phone] at 0827 All edits/amendments must be made on the electronic document DICTATION DATE: 04/07/20825 VENTILATED RIB FITTER: OSCAR 04/07/20825 RPT#: [id number] DC DATE: STATUS: ADM IN [facility] [address] [place] [address] END OF REPORT
[2020-04-07 11:42] VITALS: BP 129/60
--- NOTE | 2020-04-07 14:00 | NUR ---
ALERT. RESTING IN BED. UNSUCCESSFUL IV RESITE X2 ATTEMPTS. NOTIFY AND . MEDICATIONS CHANGED TO PO. OK WITH OUT IV PER AND .
--- NOTE | 2020-04-07 16:02 | MORECARE ---
CASE MANAGEMENT DISCHARGE SUMMARY PATIENT: DREW CHAIREZ UNIT: [id number] ADM DATE: 04/02/20 AGE: 85 : 34 SEX: F ROOM/BED: D.2754 AUTHOR: NABEEL BROCK PHYSICIAN: REFERRING PHYSICIAN: JAMI DUFFY MD DATE OF SERVICE: 04/07/20 Discharge Plan Patient Name: DREW CHAIREZ Facility: [facility]:[place] : 1935 Planned Disposition: Chcf Facility Anticipated Discharge Date: Discharge Date: Expected LOS: Initial Reviewer: [email or web address] Initial Review Date: 04/02/2020 Generated: 04/07/20 5:01 pm External Providers External Provider: [facility] Next Contact Date: Service Request Date: Service Type: Resolution: Reviewer: Comments: Last DP export: 04/07/20 7:27 Patient Name: DREW CHAIREZ Page [id number] at 1602 All edits/amendments must be made on the electronic document DICTATION DATE: 04/07/201600 SALES AND OPERATIONS TRAINEE: OSCAR 04/07/201600 RPT#: [id number] DC DATE: STATUS: ADM IN [facility] [address] [place] [address] END OF REPORT
--- NOTE | 2020-04-07 19:10 | NUR ---
AWAKES BWD LOW AND LOCKED CALL LIGHT IN REACH DENIES NEEDS
[2020-04-07 20:00] VITALS: BP 144/78
--- NOTE | 2020-04-07 21:48 | NUR ---
PT AROUSES EASILY BED LOW AND LOCKED CALL LIGHT IS IN REACH PT NEEDS AND IS CLEANED OF FECES AND URINE ACKERMAN IN PLACE BUT PT URINATES AROUND ACKERMAN WHEN COUGHING OTHER NEEDS ARE MET
[2020-04-08] VITALS: BP 140/61
[2020-04-08 04:00] VITALS: BP 124/80
[2020-04-08 05:25] LABS: ANION GAP 11.6 mmol/L (8-16); BILIRUBIN - DIRECT 0.11 mg/dL (0.00-0.30); BILIRUBIN - INDIRECT 0.51 mg/dL (0.00-1.00); BILIRUBIN - TOTAL 0.62 mg/dL (0.2-1.3); CALCIUM 9.3 mg/dL (8.5-10.1); CARBON DIOXIDE 27.2 mmol/L (21.0-32.0); POTASSIUM - SERUM 3.8 mmol/L (3.5-5.1); PROTEIN - SERUM 6.9 g/dL (6.4-8.2)
[2020-04-08 05:29] LABS: CREATININE - SERUM 0.9 mg/dL (0.6-1.3)
[2020-04-08 05:42] LABS: BASOPHILS 0.1 % (0-2); EOSINOPHILS 3.3 % (0-7); HEMATOCRIT 43.3 % (36.0-48.0); IMMATURE GRANULOCYTES 0.7 % (0-5); LYMPHOCYTES 24.2 % (15-50); MCH 31.1 pg (26.0-34.0); MCHC 34.6 g/dL (31.0-37.0); MCV 89.8 fL (80.0-100.0); MEAN PLATELET VOLUME 10.6 fL (7.4-10.4); MONOCYTES 11.5 % (2-11); NEUTROPHILS 60.2 % (40-80); PLATELET COUNT 202 10x3/uL (130-400); RBC 4.82 10x6/uL (4.00-5.40); RDW 12.7 % (11.5-14.5)
[2020-04-08 05:44] LABS: WBC 8.9 10x3/uL (4.8-10.8)
[2020-04-08 08:22] VITALS: BP 149/89
[2020-04-08 11:55] VITALS: BP 150/73
--- NOTE | 2020-04-08 12:22 | MORECARE ---
CASE MANAGEMENT DISCHARGE SUMMARY PATIENT: DREW CHAIREZ UNIT: [id number] ADM DATE: 04/02/20 AGE: 85 : 34 SEX: F ROOM/BED: D.6544 AUTHOR: NABEEL BROCK PHYSICIAN: REFERRING PHYSICIAN: JAMI DUFFY MD DATE OF SERVICE: 04/08/20 Discharge Plan Patient Name: DREW CHAIREZ Facility: [facility]:[place] : 1935 Planned Disposition: Senior Care Facility Anticipated Discharge Date: Discharge Date: Expected LOS: Initial Reviewer: [email or web address] Initial Review Date: 04/02/2020 Generated: 04/08/20 1:22 pm Last DP export: 04/07/20 3:02 Patient Name: DREW CHAIREZ Page 05155 at 1222 All edits/amendments must be made on the electronic document DICTATION DATE: 04/08/20 1222 ORCHESTRATOR: OSCAR 04/08/20 1222 RPT#: [id number] DC DATE: STATUS: ADM IN [facility] [address] [place] [address] END OF REPORT
[2020-04-08] MEDS ORDERED: DECADRON4 MG PO (12:35)
--- NOTE | 2020-04-08 14:37 | NUR ---
ACKERMAN REMOVED AND DEPENDS ON PATIENT FOR DISCHARGE.
--- NOTE | 2020-04-08 14:44 | NUR ---
REPORT CALLED TO RUFINO AT THE [facility].
--- NOTE | 2020-04-08 14:50 | NUR ---
DISCHARGED VIA WHEELCHAIR WITH INVESTIGATOR CLAIMS FROM FACILITY.
== END 2020-04-08 14:51 | DRG 177 ==
LOC: D.ER 01:25 → D.M2 03:04 → D.EDHOLD 03:04 → D.ICU 03:04 → D.M2 23:21
PROVIDERS: Family Medicine; Internal Medicine Pulmonary Disease; ADMIT Family Medicine; ATTEND Family Medicine
DX: U07.1 COVID-19 (principal); J96.21 Acute and chronic respiratory failure with hypoxia; J96.22 Acute and chronic respiratory failure with hypercapnia; J12.89 Other viral pneumonia; N17.9 Acute kidney failure, unspecified; I13.0 Hypertensive heart and chronic kidney disease with heart failure and stage 1 through stage 4 chronic kidney disease, or unspecified chronic kidney disease; I50.20 Unspecified systolic (congestive) heart failure; J98.11 Atelectasis; J44.0 Chronic obstructive pulmonary disease with (acute) lower respiratory infection; J44.1 Chronic obstructive pulmonary disease with (acute) exacerbation; N18.9 Chronic kidney disease, unspecified; E87.5 Hyperkalemia; K21.9 Gastro-esophageal reflux disease without esophagitis; F41.8 Other specified anxiety disorders; I27.20 Pulmonary hypertension, unspecified; I07.1 Rheumatic tricuspid insufficiency; Z66 Do not resuscitate; F03.90 Unspecified dementia, unspecified severity, without behavioral disturbance, psychotic disturbance, mood disturbance, and anxiety; D69.6 Thrombocytopenia, unspecified

== ENCOUNTER → 2020-10-17 09:04 | Outpatient (CLI) | payer MEDICARE, BC ==
[~2020-10-17 09:04] MED LIST changes: +ALDACTONE25 MG PO; +ARTIFICIAL TEARS; +CATAPRES0.1 MG PO; +CELEBREX 100 M100 MG PO; +DECADRON4 MG PO; +MILK OF MAGNESI30 ML PO; +NORVASC5 MG PO
[2020-10-17 09:22] LABS: BASOPHILS 0.2 % (0-2); EOSINOPHILS 3.7 % (0-7); HEMATOCRIT 40.9 % (36.0-48.0); HEMOGLOBIN 12.8 g/dL (12-16); IMMATURE GRANULOCYTES 0.1 % (0-5); LYMPHOCYTE ABS# 1.41 10x3/uL (1.18-3.74); LYMPHOCYTES 16.2 % (15-50); MCH 30.8 pg (26.0-34.0); MCHC 31.3 g/dL (31.0-37.0); MCV 98.6 fL (80.0-100.0); MONOCYTES 5.2 % (2-11); NEUTROPHIL ABS# 6.51 10x3/uL (1.56-6.13); NEUTROPHILS 74.6 % (40-80); PLATELET COUNT 185 10x3/uL (130-400); RBC 4.15 10x6/uL (4.00-5.40); RDW 13.4 % (11.5-14.5); WBC 8.7 10x3/uL (4.8-10.8)
[2020-10-17 09:37] LABS: ANION GAP 10.9 mmol/L (8-16); BILIRUBIN - TOTAL 0.53 mg/dL (0.2-1.3); CALCIUM 8.9 mg/dL (8.5-10.1); CREATININE - SERUM 1.9 mg/dL (0.6-1.3); PROTEIN - SERUM 7.1 g/dL (6.4-8.2)
[2020-10-17 09:47] LABS: POTASSIUM - SERUM 7.9 mmol/L (3.5-5.1)
== END | disposition home or self-care (01) ==
LOC: D.LABREF 09:04
PROVIDERS: ATTEND Legal Medicine
DX: N17.9 Acute kidney failure, unspecified (principal); I10 Essential (primary) hypertension